=== PATIENT | female | born 1955 | race Caucasian/White ===

== ENCOUNTER 2023-08-26 13:22 | Outpatient (AMB) | payer MEDICARE, BC, SELFPAY ==
--- NOTE | 2023-08-26 13:33 | A.OFFVIS_ITS ---
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 Martinez/ Intake Note: New patient Dr Martinez dx htn is elevated and chest pain at times Files Supervisor Required: No Ordering Machine Operator: Ordering Machine Operator Present Accompanied by: Spouse Allergies sulfamethoxazole [From Bactrim] Allergy (Severe, Verified 08/26/23 14:44) Anaphylaxis trimethoprim [From Bactrim] Allergy (Severe, Verified 08/26/23 14:44) Anaphylaxis vancomycin Allergy (Severe, Verified 08/26/23 14:44) Hives amoxicillin [From Augmentin] Allergy (Mild, Verified 08/26/23 14:44) Gastrointestinal Upset Androgenic Anabolic Steroid Allergy (Mild, Verified 08/26/23 14:44) htn clavulanic acid [From Augmentin] Allergy (Mild, Verified 08/26/23 14:44) Gastrointestinal Upset clindamycin Allergy (Mild, Verified 08/26/23 14:44) Diarrhea glatiramer (copolymer 1) [From Copaxone] Allergy (Mild, Verified 08/26/23 14:44) Hives levofloxacin [From Levaquin] Allergy (Mild, Verified 08/26/23 14:44) tendon problems oxycodone Adverse Reaction (Mild, Verified 08/26/23 14:44) Itching HPI Comments Details: Jodi comes for a 2nd opinion for her management of hypertension and cardiovascular disease. She in the past has had no significant cardiac issues. She recently in April underwent a cardiac catheterization which as per her showed normal coronary arteries. This was done because of recurrent anginal sounding chest discomfort and vascular risk factors. She also had implantable recorder implanted in April of 2020 for symptoms of neurologic dysfunction and with her family history of atrial fibrillation and concerned about it. This was left in for 3 years and was recently explanted and has shown no evidence of atrial fibrillation as per her although she has not very confident about this. She is longstanding history of multiple sclerosis which has been progressive multiple sclerosis, rheumatoid arthritis. She has had progressive neurologic dysfunction related to it. Over the last many years she is developed blood pressure issues. This was 1st diagnose in 2020 when she had presented to the hospital with transient neurologic deficit and as per her the imaging showed no evidence of acute stroke. Subsequently at that time she was noted to have markedly elevated blood pressure. And was started on lisinopril therapy. However after that she continued to have elevated blood pressure and she was eventually switch to amlodipine therapy. This has led to significant better control of blood pressure however over the last many months she was admitted again with neurologic symptoms and noted to have elevated blood pressure. She also had chest pain syndrome. At that time she was started on isosorbide therapy and currently on the regimen that she is on to maintain a blood pressure. Despite this she says a blood pressure is elevated. She says she measure blood pressure only at nighttime before sleep. With the blood pressure at that time been recorded to 150-160. There has been reported autonomic dysfunction as per her neurologist in [place] related to her multiple sclerosis.She has been on Ocrevus therapy for her multiple sclerosis but recently this has been put on hold as per her due to her diagnose of breast cancer due to immunomodulation caused by this therapy. She is worried about her multiple sclerosis and limited prognosis associated with it especially affecting her diaphragmatic muscle and reducing her breathing capacity. 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 As per the she does have stress associated with this but she declines this. She has noted occasional palpitations in the past has been diagnose with SVT. She does have EKG sensor however she says very difficult for her to get her EKG as the symptoms of very transient. She continues to worry about development of atrial fibrillation related stroke. Our there has been no diagnosis of atrial fibrillation the past. 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 Will obtain the same. [facility] Medical History (Updated 08/26/23 @ 16:05 by Kiet Zamudio MD) Progressive multiple sclerosis Family History Father HTN (hypertension) Stroke Mother HTN (hypertension) Afib Social History Patient Tobacco Use Status: Current everyday Tobacco user Cigarettes Per Day: 6 Review of Systems Const Denies chills, Denies daytime sleepiness, Denies fatigue, Denies fever(s), Den ies frequent falls, Denies poor appetite, Denies snoring, Denies stops breathing during sleep, Denies weakness, Denies weight gain and Denies weight loss Eyes Denies loss of vision ENT Denies dizziness and Denies hearing loss Card Denies chest pain, Denies claudication, Denies leg edema, Denies lightheadedness, Denies palpitations, Denies dyspnea, Denies dyspnea on exertion and Denies orthopnea Resp Denies cough, Denies excessive phlegm production, Denies dyspnea, Denies dyspnea on exertion, Denies snoring and Denies wheezing GI Denies abdominal pain, Denies hematochezia, Denies change in bowel habits, Denies nausea and Denies vomiting Denies urinary frequency and Denies dysuria Musc Denies arthralgias, Denies muscle weakness, Denies numbness and Denies other (frequent falls) Skin/Breast Denies nail changes and Denies rash Neuro Denies Abnormal speech present, Denies dizziness, Denies frequent falls, Denies loss of vision, Denies memory loss, Denies numbness and Denies weakness Psych Denies depression and Denies memory loss Endo Denies fatigue and Denies palpitations Ty/Lymph Reports easy bruising and Reports other (anemia) Aller/Immun Denies wheezing Physical Exam Vital Signs: Last Vital Signs Pulse 62 08/26/23 13:35 BP 140/80 H 08/26/23 13:35 BMI result Body Mass Index 25.0 Const General: cooperative, comfortable, no acute distress, alert, awake and anxious Nutritional Appearance: average body habitus and well nourished Orientation/consciousness: patient oriented x3 Limitations: wheelchair HEENT Head: Yes normocephalic and Yes atraumatic Neck Neck: Yes trachea midline, Yes supple and Yes no JVD Resp Effort & Inspection: normal respiratory effort Auscultation: clear to auscultation bilaterally Cardio Jugular venous distension: no JVD Palpation: normal PMI Rate: regular rate Rhythm: regular rhythm Heart sounds: S1 normal heart sound present, S2 normal heart sound present, no click, no gallops, no murmurs and no rubs GI Auscultation: normal bowel sounds Skin General skin exam: no rashes or lesions noted Neuro General: patient oriented x3 and no focal motor deficits Speech: No Abnormal speech present Extrem General: Yes no clubbing, cyanosis or edema Psych Affect: Anxious affect present Office Procedures EKG Details: EKG shows normal sinus rhythm with normal EKG [id number], Complete Assessment & Plan Assessment & Plan (1) Palpitations: Code(s): R00.2 - Palpitations Category: Medical Plan: Patient with transient symptoms of palpitations. This could either represent extra systoles of short burst of SVT. She has never been diagnosed with atrial fibrillation the past. She remains very worried about the same. I discussed with her that she can get daily EKGs or twice a day EKGs with her EKG sensor blue tooth device. This way we can monitor on a daily basis if there any significant arrhythmias. If she is particularly prolonged episode of palpitations also we can obtain EKGs during that time. Although she has family history of atrial fibrillation despite the implantable loop recorder there has never been a diagnose of atrial fibrillation so this is less likely. This was discussed with her. We discussed about stress mitigation strategies. Avoidance of stimulants was discussed. At this point time I do not think she requires any other form of external monitoring except for self monitoring. (2) Labile blood pressure: Code(s): R09.89 - Other specified symptoms and signs involving the circulatory and respiratory systems Category: Medical Plan: Labile blood pressure most likely related to dysautonomia. She is very worried about her blood pressure issues. She has had symptomatic hospitalization related to transient neurologic symptoms. She has never had an obvious stroke based on imaging. Will obtain all old records and cardiology workup. We had a very long discussion about management of this. She is currently on a complicated regimen of antihypertensives. I have advised her to monitor blood pressure at different times of the day and maintain a record over the next 4-6 weeks. Further management based on the finding of the blood pressure adjustment of medications based off that. I discussed with her that isosorbide is not a great antihypertensive. However this is probably being used for chest pain syndrome although inappropriate given that she has no prior history suggestive of obstructive coronary artery disease. Isosorbide can potentially be used for coronary vaso spasm although this is difficult clinical diagnosis. Will obtain old records to review the same. Continue metoprolol which is helping with her SVT syndrome. Continue amlodipine as well as clonidine therapy although still not a great drug for blood pressure control. Will further manage her blood pressure based on the data. Stress mitigation strategies needs to be pursued. Adequate hydration needs to be pursued. Difficult management of labile blood pressure especially related to autonomic dysfunction was discussed with her. Permissive hypertension up to systolic blood pressure 140 was discussed. Greater than 1 hours spent in overall listening to her concerns and discussing with her about various options. Will follow-up for nurse visit in 6 weeks time. Thank you for allowing me to partake in the care Coding Level of Care Code New Pt Level 5 (85944) Diagnoses Palpitations R00.2 Labile blood pressure R09.89 CPT Codes EKG - CPT: [id number], Complete ([id number])
[2023-08-26 13:35] VITALS: BP 140/80; PULSE 62; BMI 25.0
== END 2023-08-26 15:22 | disposition home or self-care (01) ==
PROVIDERS: PCP Internal Medicine; Visit Provider Internal Medicine Cardiovascular Disease
DX: R00.2 Palpitations (principal); R03.0 Elevated blood-pressure reading, without diagnosis of hypertension
CPT/HCPCS: 93010; 99205

== ENCOUNTER → 2023-08-26 13:22 | Outpatient (BNVA) | payer MEDICARE, BC, SELFPAY | PROVIDERS: PCP Internal Medicine; Visit Provider Internal Medicine Cardiovascular Disease | DX: I10 Essential (primary) hypertension (principal); R00.2 Palpitations; R09.89 Other specified symptoms and signs involving the circulatory and respiratory systems | CPT/HCPCS: 93005; 99202 ==

== ENCOUNTER → 2023-10-06 08:44 | Outpatient (BNVA) | payer MEDICARE, BC, SELFPAY | PROVIDERS: PCP Internal Medicine; Visit Provider Internal Medicine Cardiovascular Disease ==

== ENCOUNTER 2025-03-18 18:29 | Emergency (ER) | payer MEDICARE, BC, SELFPAY ==
--- OUTSIDE RECORDS SUMMARY | 2025-03-17 10:30 | XMS_ITS | Encounter Summary ---
Author Organization [facility] Address [address] [place] [address] Phone Care Team Providers Care Customer Service Specialist Name Role Phone Marion Mattson MD Unavailable [phone] Kelvin Acosta MD Unavailable [phone] Nato Martinez MD Primary Care Provider [phone] Yessica Hernandes MD Unavailable Karen Yen MD Unavailable [phone] Nato Martinez MD Unavailable [phone] Reason for Referral * MRI/CAT Scan - Authorized Specialty Diagnoses / Procedures Referred By Contyoselin t Referred To Contact Radiology Diagnoses Left arm pain Procedures CT Chest Nato Martinez MD [address] [place] [address] Phone: tel: fax: [email or web address] Referral ID Status Reason Start Date Expiration Date V isits Requested Visits Authorized [id number] Authorized 03/17/2025 03/17/2026 1 1 Reason for Visit * Reason Comments Hypertension Follow up on blood p ressure Medication Review Follow up on medicat ions Encounter Details Date Type Department Care Team (Late Contact Info) Description 03/17/2025 10:30 AM EST [facility] [address] [place] [address] [place] [address] Nato Martinez MD [address] [place], [place] [id number] [email or web address] Left arm pain (Primary Dx); Malignant neoplasm of female breast, unspecified estrogen receptor status, unspecified laterality, unspecified site of breast; Resistant hypertension; Neuromuscular respiratory weakness; Multiple sclerosis; TIA (transient ischemic attack) Social History Tobacco Use Types Packs/Day Years Used Date Smoking Tobacco: Light Smoker Cigarettes 0.3 43 Smokeless Tobacco: Never Comments:Started at age 18. 5 a day Alcohol Use Standard Drinks/Week Comments Yes 0 (1 standard drink = 0.6 oz pur e alcohol) 4 Beers weekly Home Health Assessment: Transportation Answer Date Recorded Lack of Transportation (Medical) No 09/12/2022 Lack of Transportation (Non-Medical) No 09/12/2022 Patient Unable or Declines to Respond No 09/12/2022 Education Answer Date Recorded Are you interested in more education? Not on ean e 08/22/2022 Are you concerned about learning? Not on file 08/22/2022 No 08/22/2022 No 08/22/2022 Digital Access Answer Date Recorded No 09/21/2022 No 09/21/2022 Reliable internet access at home? Not on file 09/21/2022 Device with a working camera? Not on file Intimate Partner Violence Answer Date R ecorded Are you denied basic needs s uch as food, clothing, or medical care? No 08/08/2024 In the past 12 months have y ou been in a relationship with a person who hurts, threatens, or tries to control you? No 08/08/2024 Are you denied basic needs s uch as food, clothing, or medical care? No 08/08/2024 In the past 12 months have y ou been in a relationship with a person who hurts, threatens, or tries to control you? 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 on file Not on file Not on file documented as of this encounter Last Filed Vital Signs Vital Sign Reading Time Taken Comments Blood Pressure 122/70 03/17/2025 10:34 AM EST Pulse 59 03/17/2025 10:34 AM EST Temperature 36.3 C (97.3 F) 03/17/2025 10:34 AM EST Respiratory Rate - - Oxygen Saturation 98% 03/17/2025 10:34 AM EST Inhaled Oxygen Concentration - - Weight - - Height 167.6 cm (5' 5.98 ) 03/17/2025 10:[address] Body Mass Index - - documented in this encounter Progress Notes * Nato Martinez MD - 03/17/2025 10:30 AM EST Chief Complaint: Hypertension (Follow up on blood pressure ) and Medication Review (Follow up on medications ) Subjective: Social History Social History 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 She is disabled and wheelchair-bound. She has two adult children living in [facility]. 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 She smokes 5 cigarettes daily. HCP: Edward Zarate, She is a DO NOT RESUSCITATE and DO NOT INTUBATE per discussion today Here for hypertension follow-up. She reported difficulty with lab issues, tests ordered by Dr. Esposito. We recently updated the lab system and that seems to explain the problem. Last visit with me in July, she reported some atypical chest discomfort with nausea at night. She has worsening MS, and had a normal cardiac cath last year. She was recommended to have a lab polysomnogram. She has previously been tested at [facility] and has been tried on BiPAP in the past with difficulty from stomach distention. She has had scheduled follow-up with Dr. Silva in pulmonology and Dr. Andres in sleep medicine. In July I ordered an echocardiogram which showed normal EF, trace MR, no AAS or AR, no MS or MR, no pulmonary hypertension Routine labs last month, LDL 66, HDL 68, hematocrit 49.4 somewhat elevated compared to previous, glucose 115, A1c 5.8 Jodi Zarate, is a 69 y.o. female reports concerns: - wonders re meds and 'heart issues': still having 'angina', LUE pain. Has SOB always, but no chestpressure or pain. Then relates an episode of pinching in L upper chest a month ago for a day. No nocturnal nausea, 'i don't remember that'. Today we discussed that constant LUE pain, with no progression to ACS would be unusual. She is on solid antianginal meds [imdur, asa, toprol, norvasc, lipitor]. Also mentions she gets occas LLE numbness. I think she has a different cause for her LUE sx, likely related to MS. All of her sx worsened whenocrevus was dc'd almost 2 yrs. Today will order chest CT to r/o thoracic outlet. Re HTN, does home BPs. When BP is 160/90 she feels it, 2-3x/month. Also get some low BPs, rarely. I rec'd daily BP mornings, and some evening checks. [place] [facility] [place]. Never made appt with [facility] cardiology We reviewed her entire medical profile. Re nuvigil, she worries re stimulant effect on her ?angina. Re ASA, rec'd continueing dt hx TIA. Cont lipitor Re clonidine, she does have fatigue, but did not notice improved energy when she missed doses. History of Present Illness VITALS: BP 122/70 (BP Location: Right arm, Patient Position: Sitting, Cuff Size: Medium) Pulse (!) 59 Temp 36.3 ??C (97.3 ??F) (Temporal) Ht 167.6 cm (5' 5.98 ) SpO2 98% BMI 21.80 kg/m?? Physical Exam Assessment/Plan: 1. Left arm pain (Primary) Overview: Needs chest CT, start eval for thoracic outlet Orders: - CT Chest 2. Malignant neoplasm of female breast, unspecified estrogen receptor status, unspecified laterality, unspecified site of breast Overview: Dr Alcaraz at [facility] manages. Currently monitor, slow growing, no surgery planned 3. Resistant hypertension Overview: She has had labile blood pressures, has had her medications adjusted multiple times. As of June 2020, overall excursions are improving 4. Neuromuscular respiratory weakness Overview: Decreased MIPs and MEPS in the setting of MS Cough intact Voice weak Oropharyngeal dysphagia No aspiration Last Assessment & Plan: Decreased MIPs and MEPS in the setting of MS; Cough intact; Voice weak; Oropharyngeal dysphagia; Noaspiration. Ordered PFTS sitting and supine with MIPS/MEPS at [facility]. 5. Multiple sclerosis Overview: moderate progressive, followed at [facility], Dr. Esposito. Wheelchair bound since 2014 Maintained on Ocrevus, Q6 months. To restart September: Having more resp issues, may need to adjust her resp support. June 2020: Has more autonomic issues, blood pressure medication regimen is being adjusted by cardiology. She has significant sleep issues and daytime sleepiness. July 2020: Refer to PT. She is also restarting meditation and councelling. 6. TIA (transient ischemic attack) Overview: No recurrent sx Assessment & Plan I have maintained a long-term, longitudinal relationship with this patient, overseeing care of chronic conditions, including MS, HTN, hypoventilation, arm pain. This care relationship has significantly influenced my decision-making and treatment plans during today's encounter. Please consider using the newly developed race-neutral PREVENT score to determine CVD risk: https:// professional.heart.org/en/jhzxdcgtxk-kso-fixgfnfrbe/prevent-calculator The ASCVD Risk score (Justice LLANES, et al., 2019) failed to calculate for the following reasons: Risk score cannot be calculated because patient has a medical history suggesting prior/existing ASCVD No results found for any visits on 03/17/25. There are no Patient Instructions on file for this visit. No future appointments. No follow-ups on file. Nato Martinez MD 03/17/25. 11:10 AM Orders Placed This Encounter Procedures CT Chest Standing Status: Future Expected Date: 03/17/2025 Expiration Date: 06/17/2025 Oral Contrast Request:: Oral Contrast authorized if indicated per Radiology Protocol Does the patient have a known prior CT contrast reaction?: No Intravenous Contrast Request:: IV Contrast Authorized if indicated per Radiology Protocol Is a particular imaging focus suggested (radiology may call to confirm)?: Per Radiologist discretion/standard based on indications Patient expresses understanding and agrees with plan. All questions were answered satisfactorily. Patient agrees to call with questions or concerns should the need arise This dictation was prepared using Bo[employer] cashiers supervisor software. documented in this encounter Plan of Treatment Scheduled Orders Name Type Priority Associated Diagnoses Orde r Schedule CT Chest Imaging Routine Left arm pain Expected: 03/17/2025, Expires: 06/17/2025 documented as of this encounter Visit Diagnoses Diagnosis Left arm pain- Primary Pain in soft tissues of limb Malignant neoplasm of female breast, unspecified estrogen receptor status, unspecified laterality, unspecified site of breast Resistant hypertension Neuromuscular respiratory weakness Multiple sclerosis TIA (transient ischemic attack) Unspecified transient cerebral ischemia documented in this encounter Additional Health Concerns Assessment Noted Time PHQ-2 Depression Total Score: 1 03/17/20 25 10:40 AM EST documented as of this encounter Care Teams Customer Service Specialist Relationship Specialty Start Date End Date Nato Martinez MD [address] [place] [address], [address] [place] [address] [email or web address] PCP - General Internal Medicine 05/13/17 Marion Mattson MD [address] [place] [address], [address] [place] [address] [email or web address] Historical LMR Provider 02/14/17 Kelvin Acosta MD [address] [place] [address] [email or web address] Historical LMR Provider 02/14/17 Yessica Hernandes MD [address] [place] [address] [email or web address] Obstetrics and Gynecology 09/02/17 Karen Yen MD [address] [place] [address] [email or web address] Medical Oncology 09/02/17 Nato Martinez MD [address] [place] [address], [address] [place] [address] [email or web address] Insurance Assigned Provider 08/01/23 documented as of this encounter Additional Source Comments The information contained in this document represents components of the legal health record. It is not the complete legal health record.[facility]
--- NOTE | ~2025-03-18 | CT_ITS ---
CLINICAL HISTORY: left facial numbness CT head without contrast Comparison: None provided Findings: No intra-axial mass, midline shift, hydrocephalus, or acute hemorrhage. Age appropriate cerebral volume loss. Patchy low-density within the periventricular and subcortical white matter. There is no sinus or mastoid fluid. The orbits are unremarkable. There is no acute fracture. IMPRESSION: 1. No acute intracranial findings. This document has been electronically signed by: Brigid Quick MD on 03/18/2025 20:53:45
[2025-03-18 18:34] VITALS: BP 141/70; PULSE 60; RESP 18; TEMP 37.1; O2SAT 99; BMI 22.3
--- NOTE | 2025-03-18 18:40 | ECG_ITS ---
Test Reason : WEAKNESS Blood Pressure : */* mmHG Vent. Rate : 55 BPM Atrial Rate : 55 BPM P-R Int : 162 ms QRS Dur : 72 ms QT Int : 418 ms P-R-T Axes : 65 15 -1 degrees QTcB Int : 399 ms Sinus bradycardia Otherwise normal ECG No previous ECGs available Referred By: Ervin Montenegro Electronically Signed By: MICHELLE PATINO
--- NOTE | 2025-03-18 18:41 | ED.GENADULT ---
HPI - General Adult General Chief complaint: General Medical Stated complaint: possible stroke Time Seen by Provider: 03/18/25 20:59 History of Present Illness ED Provider: Dr. Annabel Mo HPI narrative: 69-year-old female with a history of hypertension, hyperlipidemia, and long-standing multiple sclerosis (40 yrs) who presented to the ED after accidental morning ingestion of her usual nighttime medications (amlodipine, clonidine, metoprolol, isosorbide, baclofen ? larger dose, and primidone). ? Timeline ? Around 11:00 AM, while working on the computer, she developed marked fatigue and almost fell asleep. Dizziness came on ?stronger and sooner? than usual fatigue spells. About 1 hour later she noted numbness of the left side of her mouth and left hand, followed by generalized weakness when attempting to transfer/walk. ? Home BP readings were low: lowest documented 99/62 mm Hg with HR 47 bpm. BP later improved. ? She phoned her PCP answering service (~12 PM); prior history includes two TIAs, so PCP recommended ED evaluation. ? Left arm/shoulder pain radiates under axilla and down arm; similar discomfort first occurred after her 2020 TIA. ? After initial episode, patient rested at home; upon waking, symptoms (fatigue, numbness, cognition) were worse. On arrival to ED, described patient as ?out of it,? unable to transfer from wheelchair, and could barely use her left hand. Symptoms subsequently improved during ED stay, including improvement in numbness in feet. Cognition currently intact per provider. ? No Tylenol or other analgesics taken. ? Denies recent fever, cough, colds, nausea, bowel changes, urinary complaints or vomiting. Related Data Home Medications ?Medication ?Instructions ?Recorded ?Confirmed amlodipine 2.5 mg tablet 2.5 mg PO BID 08/26/23 armodafinil 150 mg tablet 150 mg PO QAM PRN 08/26/23 aspirin 81 mg tablet,delayed 81 mg PO DAILY 08/26/23 release (Adult Aspirin Regimen) atorvastatin 80 mg tablet 40 mg PO DAILY 08/26/23 baclofen 20 mg tablet 20 mg PO TID 08/26/23 clonidine HCl 0.2 mg tablet 0.2 mg PO QPM 08/26/23 esomeprazole magnesium 20 mg 20 mg PO DAILY 08/26/23 capsule,delayed release hyoscyamine sulfate 0.125 mg tablet 0.125 mg PO DAILY 08/26/23 immun glob G 10 gram/50 mL(20 subcut 08/26/23 %)-pro-IgA 0-50 mcg/mL subcutaneous soln (Hizentra) isosorbide mononitrate 30 mg 30 mg PO DAILY 08/26/23 tablet,extended release 24 hr metoprolol succinate 50 mg 50 mg PO DAILY 08/26/23 tablet,extended release 24 hr polyethylene glycol 3350 17 17 g PO DAILY 08/26/23 gram/dose oral powder (Miralax) primidone 50 mg tablet 50 mg PO DAILY 08/26/23 vitamin B complex 1 tab PO DAILY 08/26/23 Allergies Allergy/AdvReac Type Severity Reaction Status Date / Time sulfamethoxazole (From Allergy Severe Anaphylaxis Verified 03/18/25 18:38 Bactrim) trimethoprim (From Bactrim) Allergy Severe Anaphylaxis Verified 03/18/25 18:38 vancomycin Allergy Severe Hives Verified 03/18/25 18:38 amoxicillin (From Augmentin) Allergy Mild Gastrointestinal Verified 03/18/25 18:38 Upset Androgenic Anabolic Steroid Allergy Mild htn Verified 03/18/25 18:38 clavulanic acid (From Allergy Mild Gastrointestinal Verified 03/18/25 18:38 Augmentin) Upset clindamycin Allergy Mild Diarrhea Verified 03/18/25 18:38 glatiramer (copolymer 1) Allergy Mild Hives Verified 03/18/25 18:38 (From Copaxone) levofloxacin (From Levaquin) Allergy Mild tendon Verified 03/18/25 18:38 problems oxycodone AdvReac Mild Itching Verified 03/18/25 18:38 Review of Systems Review of Systems: as per HPI, full review of systems performed and negative but for the above mentioned pertinent positives and negatives. [facility] Past Medical History Medical History Progressive multiple sclerosis Family History Family History Father HTN (hypertension) Stroke Mother HTN (hypertension) Afib Social History Social History Alcohol intake: current Alcohol intake frequency: 0-2 drinks per day Alcohol type: beer Patient Tobacco Use Status: Current everyday Tobacco user Cigarettes Per Day: 6 Smoked in Last 30 Days: Yes Use of substances other than those prescribed or required for medical reasons: No Advance Directives: Yes Advance Directives Information Provided: No Advance Directives on File: No Do you have a plan to hurt others: No Plan Physical Exam ED Exam Exam: GENERAL: Chronically ill-appearing, conversant, no acute distress. SKIN: Normal skin color for ethnicity, warm, dry, no rashes noted. HEENT: Normocephalic, atraumatic, no stridor, posterior oropharynx nonerythematous, EOMI. NECK: Soft, supple, full ROM, midline structures nontender, no step-offs, no deformities, no lymphadenopathy. CHEST: Heart regular rate and rhythm, no murmurs, symmetric chest rise and fall. PULMONARY: Clear to auscultation bilaterally, no labored breathing, no wheezes/rhales/ rhonchi. ABDOMINAL: Soft, nondistended, nontender, positive bowel sounds in all quadrants. : Deferred. MUSCULOSKELETAL: Normal tone, full range of motion, no deformities, no peripheral edema. NEURO: Alert and oriented to person, CN II through XII intact, LUE/LLE strength 4/5 compared to R side, baseline per patient, sensation equal in all limbs/face. PSYCHIATRIC: Flat affect, fluid speech, appropriate demeanor. Vital Signs: Vital Signs - 24 hr 03/18/25 18:34 Temperature 98.8 F Pulse Rate 60 Respiratory Rate 18 Blood Pressure 141/70 H Pulse Oximetry 99 Oxygen Delivery Method Room Air BMI result Body Mass Index 22.3 Course Course Course Narrative: RME, this is a rapid medical exam performed by Woodrow Montenegro please refer to primary provider for complete H&P- 69 year old female presents for evaluation of multiple complaints including left chest pain into her left arm. Left facial numbness. She reports dizziness and fogginess starting at 11:00 am about 7.5 hours prior to my evaluation. She reports some word finding difficulties. She has good strength to all extemities, no facial droop or slurred speech. She is wheelchari bound from a history of MS Medical Decision Making Medical Decision Making MDM Narrative: 69-year-old woman with complex medical history presenting after inadvertent morning ingestion of nightly antihypertensive regimen, associated hypotension, transient neurologic symptoms, and left upper-extremity pain. ED evaluation (labs, CT head, EKG) reassuring. Differential includes drug-induced hypotension, TIA, cervical radiculopathy, and possible MS flare. Risks, benefits, and options for hospital admission versus outpatient follow-up discussed in detail; patient elects to discharge home with close monitoring and clear return precautions. #1 Accidental double dosing of the antihypertensive meds with symptomatic hypotension Hold all blood pressure medications tonight Resume non blood pressure medications Continue to monitor blood pressure at home return to the emergency department with any worsening hypotension or symptoms #2 Transient neurologic symptoms - TIA versus MS flare versus cervical radiculopathy Left facial/hand numbness and weakness, prior TIAs; CT negative Cannot r/o TIA/MS flare without MRI, patient has scheduled MRI Thursday (03/20) ordered by her neurologist at [facility] in [place] Discussed option of inpatient admission for expedited MRI; using shared decision making, patient declines and opts for outpatient management. Assessment: Long-standing; baseline left-sided weakness; possible contributing factor to current presentation. Plan: Follow closely with MS neurologist; MRI results to guide further management. 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 Follow-up: 1) Neurology ? MRI and visit as scheduled Thursday. 2) PCP ? update after imaging. Differential Diagnosis Differential Diagnoses: The differential diagnosis associated with the presentation includes (as above) Admission/Observation Consideration of admission/observation: Escalation of care including admission/observation considered Lab Data MDM Lab Attestation statement: I reviewed the patient's lab results. Urinalysis does have 4+ bacteria and nitrite positive however, leukocyte esterase is negative, low WBCs, we will hold on treatment until culture comes back, patient has urologist that she would prefer to see as an outpatient 03/18/25 18:53 03/18/25 18:53 Labs: Lab Results 03/18/25 Range/Units 18:53 WBC 7.0 (4.8-10.8) X10*3/uL RBC 4.33 (4.20-5.50) X10*6/uL Hgb 14.0 (12.0-16.0) g/dl Hct 41.1 (37.0-47.0) % MCV 94.9 (80.0-98.0) fL MCH 32.3 (27.0-33.0) pg MCHC 34.1 (31.0-35.0) g/dl RDW 12.0 (11.0-16.0) % Plt Count 169 (160-400) X10*3/uL MPV 11.3 (9.4-12.3) fL Immature Gran % (Auto) 0.7 H (0.0-0.4) % Neut % (Auto) 55.6 (45-73) % Lymph % (Auto) 30.9 (20-40) % Osborne % (Auto) 9.3 (2-11) % Eos % (Auto) 2.6 (0-4) % Baso % (Auto) 0.9 (0-2) % Lymph # (Auto) 2.2 (1.2-4.9) X10*3/uL Osborne # (Auto) 0.7 (0.1-1.2) X10*3/uL Eos # (Auto) 0.2 (0.0-0.4) X10*3/uL Baso # (Auto) 0.1 (0.0-0.2) X10*3/uL Abs Immat Gran (auto) 0.05 H (0.00-0.03) X10*3/uL Absolute Neuts (auto) 3.9 (2.0-8.3) x10*3/uL Absolute Nucleated RBC 0.000 (0.0-0.012) X10*3/uL Nucleated RBC % (auto) 0.0 (0.0-0.2) /100WBC Sodium 144 (135-145) mmol/L Potassium 3.8 (3.3-5.1) mmol/L Chloride 109 H (96-108) mmol/L Carbon Dioxide 28 (22-29) mmol/L Anion Gap 11 L (12-20) BUN 16 (9-16) mg/dL Creatinine 0.66 (0.5-1.4) mg/dL Estim Creat Clear Calc 77.4 Estimated GFR > 60 Random Glucose 100 (60-115) mg/dL Calcium 9.0 (8.4-10.2) mg/dL Magnesium 2.1 (1.6-2.6) mg/dL Total Bilirubin 0.3 (0.0-1.0) mg/dL AST 27 (5-31) U/L ALT 22 (0-31) U/L Alkaline Phosphatase 100 (39-117) U/L Troponin I High Sens < 2.7 (<3.5-17.0) ng/L Total Protein 6.6 (6.5-8.0) g/dL Albumin 4.2 (3.5-5.0) g/dL Lipase 41 (8-78) U/L Influenza Type A (PCR) NEGATIVE (Negative) Influenza Type B (PCR) NEGATIVE (Negative) RSV RNA Qual (PCR) NEGATIVE (Negative) SARS-CoV-2 RNA (RT-PCR) NEGATIVE (Negative) Independent Interpretation I performed an independent interpretation of an: EKG Interpretation: My independent interpretation of the ECG reveals normal sinus bradycardia with rate of 55, normal axis, normal intervals, no ST elevations or depressions to suggest ischemic changes, no previous for comparison Radiology Impression Discussion of test interpretation with radiology: I have reviewed the radiologist's reading. Independent Historian Clinical information obtained from an independent historian. History obtained from or confirmed by: Spouse External Record Review External record reviewed: Office record Chronic Conditions Patient?s care impacted by: Other (MS) Discharge Plan Discharge Clinical Impression: Paresthesia and pain of left extremity, Medication dosage interval too long Patient Disposition: Home, Self-Care Instructions: Paresthesia (ED) Additional Instructions: Return to the emergency room with any new or worsening symptoms including: Facial droop, word-finding difficulty, weakness that is worse than your baseline, fevers greater than 100?, any new symptom that concerns you. Call 911 with any medical emergency. Remember that stroke is time sensitive and to call for help as soon as you recognize symptoms of a stroke. Prescriptions: No Action amlodipine 2.5 mg tablet 2.5 mg PO BID clonidine HCl 0.2 mg tablet 0.2 mg PO QPM metoprolol succinate 50 mg tablet extended release 24 hr 50 mg PO DAILY isosorbide mononitrate 30 mg tablet extended release 24 hr 30 mg PO DAILY atorvastatin 80 mg tablet 40 mg PO DAILY esomeprazole magnesium 20 mg capsule,delayed release(DR/EC) 20 mg PO DAILY hyoscyamine sulfate 0.125 mg tablet 0.125 mg PO DAILY baclofen 20 mg tablet 20 mg PO TID aspirin [Adult Aspirin Regimen] 81 mg tablet,delayed release (DR/EC) 81 mg PO DAILY primidone 50 mg tablet 50 mg PO DAILY Hizentra 10 gram/50 mL (20 %) solution subcut vitamin B complex Tablet 1 tab PO DAILY polyethylene glycol 3350 [Miralax] 17 gram/dose powder 17 g PO DAILY armodafinil 150 mg tablet 150 mg PO QAM PRN Print Language: Mohawk
[2025-03-18 19:00] LABS: MANUAL DIFF FLAG NO
[2025-03-18 19:02] LABS: Hematocrit 41.1 % (37.0-47.0); Hemoglobin 14.0 g/dl (12.0-16.0); Imm Gran Abs Auto 0.05 X10*3/uL (0.00-0.03); Imm Gran Pct Auto 0.7 % (0.0-0.4); Lymphocytes Absolute Auto 2.2 X10*3/uL (1.2-4.9); Mean Corpuscular HGB Conc 34.1 g/dl (31.0-35.0); Mean Corpuscular Hemoglobin 32.3 pg (27.0-33.0); Mean Corpuscular Volume 94.9 fL (80.0-98.0); NRBC Abs Auto 0.000 X10*3/uL (0.0-0.012); NRBC Pct Auto 0.0 /100WBC (0.0-0.2); Platelet Count 169 X10*3/uL (160-400); Red Blood Count 4.33 X10*6/uL (4.20-5.50); White Blood Count 7.0 X10*3/uL (4.8-10.8)
[2025-03-18 19:17] LABS: Alanine Aminotransferase 22 U/L (0-31); Albumin Level 4.2 g/dL (3.5-5.0); Alkaline Phosphatase 100 U/L (39-117); Anion Gap 11 (12-20); Aspartate Amino Transferase 27 U/L (5-31); Blood Urea Nitrogen 16 mg/dL (9-16); Calcium 9.0 mg/dL (8.4-10.2); Carbon Dioxide 28 mmol/L (22-29); Chloride 109 mmol/L (96-108); Creatinine Clr Calc Pharmacy 77.4; Estimated Glomerular Filt Rate > 60; Lipase 41 U/L (8-78); Magnesium 2.1 mg/dL (1.6-2.6); Potassium 3.8 mmol/L (3.3-5.1); Sodium 144 mmol/L (135-145); Total Protein 6.6 g/dL (6.5-8.0)
[2025-03-18 19:25] LABS: Troponin-I High Sensitivity < 2.7 ng/L (<3.5-17.0)
--- OUTSIDE RECORDS SUMMARY | 2025-03-18 19:30 | XMS_ITS | Encounter Summary ---
Author Organization [facility] Address [address] [place] [address] [place] [address] Phone Care Team Providers Care Wash Operator Name Role Phone Marion Mattson MD Unavailable Kelvin Acosta MD Unavailable [phone] Qi Velez MD Unavailable [phone] Papa Gillespie MD Unavailable Nato Martinez MD Primary Care Provider [phone] Yessica Hernandes MD Unavailable Karen Yen MD Unavailable Nato Martinez MD Unavailable [phone] Encounter Details Date Type Department Care Team (Late st Contact Info) Description 09/01/2019 Transcribe Orders [address] [place] [address] Valentina De Los Santos MD [address] [facility] [place] [address] CVID (common variable immunodeficiency) (Primary Dx) Social History Tobacco Use Types Packs/Day Years Used Date Smoking Tobacco: Every Day Cigarettes 0.3 43 Smokeless Tobacco: Never Comments:Started at age 18 Alcohol Use Standard Drinks/Week Comments Yes 7 (1 standard drink = 0.6 oz pur e alcohol) Beer Nightly Comments No Sex and Gender Information Value Date Recorded Sex Assigned at Female 05/02/2020 8:29 PM EST Legal Sex Female 6:15 PM EST Gender Identity Female 05/02/2020 8:29 PM EST Sexual Orientation Straight 07/30/2020 10 :31 AM EDT 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 Co de Phone Number [address] [address] * (ABNORMAL) Immunoglobulin M (09/01/2019 9:45 AM EDT) IMMUNOGLOBULIN M 13(L) 40 - 230 mg/dL [facility] Blood 09/01/2019 9:45 AM EDT 09/01/2019 1:43 PM EDT us Valentina De Los Santos MD LAB BLOOD BKR ORDERABLES F inal Result Performing Organization Address [facility]/ZIP Co de Phone Number [address] [address] * Immunoglobulin G (09/01/2019 9:45 AM EDT) IMMUNOGLOBULIN G 1,079 700 - 1,600 mg/dL [facility] Blood 09/01/2019 9:45 AM EDT 09/01/2019 1:43 PM EDT us Valentina De Los Santos MD LAB BLOOD BKR ORDERABLES F inal Result [address] [address] * Immunoglobulin A (09/01/2019 9:45 AM EDT) IgA 111 70 - 400 mg/dL [facility] Blood 09/01/2019 9:45 AM EDT 09/01/2019 1:43 PM EDT us Valentina De Los Santos MD LAB BLOOD BKR ORDERABLES F inal Result Performing Organization Address [facility] Co de Phone Number [address] [address] documented in this encounter Visit Diagnoses Diagnosis CVID (common variable immunodeficiency)- Primary Common variable immunodeficiency documented in this encounter Additional Health Concerns Infection Onset Date Last Indicated Resolved Time CoV-Risk 01/18/2021 01/18/2021 01/28/2021 1:24 AM EDT COVID-19 10/07/2024 10/07/2024 10/28/2024 1:21 AM EDT documented as of this encounter Care Teams Wash Operator Relationship Specialty Start Date End Date Nato Martinez MD [address] [place] [address], [address] [place] [address] [email or web address] PCP - General Internal Medicine 05/13/17 Marion Mattson MD [address] [place] [address], [address] [place] [address] [email or web address] Historical LMR Provider 02/14/17 Kelvin Acosta MD [address] [place] [address] [email or web address] Historical LMR Provider 02/14/17 Qi Velez MD [address] [place] [address] Historical LMR Provider 02/14/17 2 Papa Gillespie MD [address] [place] [address], [address] [place] [address] [email or web address] Historical LMR Provider 02/14/17 05/04/21 Yessica Hernandes MD [address] [place] [address] [email or web address] Obstetrics and Gynecology 09/02/17 Karen Yen MD [address] [place] [address] [email or web address] Medical Oncology 09/02/17 Nato Martinez MD [address] [place] [address], [address] [place] [address] [email or web address] Insurance Assigned Provider 08/01/23 documented as of this encounter Additional Source Comments The information contained in this document represents components of the legal health record. It is not the complete legal health record.[facility]
--- OUTSIDE RECORDS SUMMARY | 2025-03-18 19:30 | XMS_ITS | Encounter Summary ---
Author Organization [facility] Address [facility] [address] [place] [address] Phone Care Team Providers Care Finish Production Manager Name Role Phone Marion Mattson MD Unavailable Kelvin Acosta MD Unavailable [phone] Nato Martinez MD Primary Care Provider [phone] Yessica Hernandes MD Unavailable Karen Yen MD Unavailable Nato Martinez MD Unavailable [phone] Encounter Details Date Type Department Care Team (Late st Contact Info) Description 05/02/2022 Procedure Pass [facility] Endoscopy Admitting Dept Virtual Department [address] [place] [address] Social History Tobacco Use Types Packs/Day Years Used Date Smoking Tobacco: Light Smoker Cigarettes 0.3 43 Smokeless Tobacco: Never Comments:Started at age 18. 5 a day Alcohol Use Standard Drinks/Week Comments Yes 0 (1 standard drink = 0.6 oz pur e alcohol) 4 Beers weekly Comments No Sex and Gender Information Value [...] on file documented as of this encounter Visit Diagnoses Not on filedocumented in this encounter Additional Health Concerns Infection Onset Date Last Indicated Resolved Time COVID-19 10/07/2024 10/07/2024 10/28/2024 1:21 AM EDT Assessment Noted Time PHQ-2 Depression Total Score: 0 07/31/19 10:32 AM EDT documented as of this encounter Care Teams Finish Production Manager Relationship Specialty Start Date End Date Nato Martinez MD [address] [place] [address], [address] [place] [address] PCP - General Internal Medicine 05/13/17 Marion Mattson MD [address] [place] [address], [address] [place] [address] [email or web address] Historical LMR Provider 02/14/17 Kelvin Acosta MD [address] [place] [address] [email or web address] Historical LMR Provider 02/14/17 Yessica Hernandes MD [address] [place] [address] [email or web address] Obstetrics and Gynecology 09/02/17 Karen Yen MD [address] [place] [address] Medical Oncology 09/02/17 Nato Martinez MD [address] [place] [address], [address] [place] [address] [email or web address] Insurance Assigned Provider 08/01/23 documented as of this encounter Additional Source Comments The information contained in this document represents components of the legal health record. It is not the complete legal health record.[facility]
--- OUTSIDE RECORDS SUMMARY | 2025-03-18 19:30 | XMS_ITS | Encounter Summary ---
Author Organization [facility] Address [facility] [address] [place] [address] Phone Care Team Providers Care Corporate Analyst Name Role Phone Marion Mattson MD Unavailable Kelvin Acosta MD Unavailable [phone] Nato Martinez MD Primary Care Provider Yessica Hernandes MD Unavailable Karen Yen MD Unavailable Nato Martinez MD Unavailable [phone] Encounter Details Date Type Department Care Team (Late st Contact Info) Description 08/25/2022 Procedure Pass [facility], Ct Scan - [address] [address] Social History Tobacco Use Types Packs/Day Years Used Date Smoking Tobacco: Light Smoker Cigarettes 0.3 43 Smokeless Tobacco: Never Comments:Started at age 18. 5 a day Alcohol Use Standard Drinks/Week Comments Yes 0 (1 standard drink = 0.6 oz pur e alcohol) 4 Beers weekly Education Answer Date Recorded Are you interested in more education? Not on ean e 08/22/2022 Are you concerned about learning? Not on file 08/22/2022 No 08/22/2022 No 08/22/2022 Comments No Sex and Gender Information Value [...] documented as of this encounter Care Teams Corporate Analyst Relationship Specialty Start Date End Date Nato Martinez MD [address] [place] [address], [address] [place] [address] PCP - General Internal Medicine 05/13/17 Marion Mattson MD [address] [place] [place] [address], [address] [place] [address] [email or web address] Historical LMR Provider 02/14/17 Kelvin Acosta MD [address] [place] [address] [email or web address] Historical LMR Provider 02/14/17 Yessica Hernandes MD [address] [place] [address] [email or web address] Obstetrics and Gynecology 09/02/17 Karen Yen MD [address] [place] [address] Medical Oncology 09/02/17 Nato Martinez MD [address] [place] [place] [address], [address] [place] [address] [email or web address] Insurance Assigned Provider 08/01/23 documented as of this encounter Additional Source Comments The information contained in this document represents components of the legal health record. It is not the complete legal health record.[facility]
--- OUTSIDE RECORDS SUMMARY | 2025-03-18 19:30 | XMS_ITS | Encounter Summary ---
Author Organization [facility] Address [facility] [address] [place] [address] Phone Care Team Providers Care Drainage Inspector Name Role Phone Marion Mattson MD Unavailable [phone] Kelvin Acosta MD Unavailable [phone] Nato Martinez MD Primary Care Provider Yessica Hernandes MD Unavailable Karen Yen MD Unavailable Nato Martinez MD Unavailable [phone] Encounter Details Date Type Department Care Team (Late st Contact Info) Description 12/02/2021 Procedure Pass [facility], [address] [address] Social History Tobacco Use Types Packs/Day Years [...] documented as of this encounter Care Teams Drainage Inspector Relationship Specialty Start Date End Date Nato Martinez MD [address] [place] [address], [address] [place] [address] PCP - General Internal Medicine 05/13/17 Marion Mattson MD [address] [place] [address], [address] [place] [address] Historical LMR Provider 02/14/17 Kelvin Acosta MD [address] [place] [address] [email or web address] Historical LMR Provider 02/14/17 Yessica Hernandes MD [address] [address] [email or web address] Obstetrics and Gynecology 09/02/17 Karen Yen MD [address] [place] [address] Medical Oncology 09/02/17 Nato Martinez MD [address] [place] [address], [address] [place] [address] [email or web address] Insurance Assigned Provider 08/01/23 documented as of this encounter Additional Source Comments The information contained in this document represents components of the legal health record. It is not the complete legal health record.[facility]
--- OUTSIDE RECORDS SUMMARY | 2025-03-18 19:30 | XMS_ITS | Encounter Summary ---
Author Organization [facility] Address [facility] [address] [place] [address] Phone Care Team Providers Care Staffing Operations Manager Name Role Phone Marion Mattson MD Unavailable Kelvin Acosta MD Unavailable [phone] Nato Martinez MD Primary Care Provider Yessica Hernandes MD Unavailable Karen Yen MD Unavailable Nato Martinez MD Unavailable [phone] Encounter Details Date Type Department Care Team (Late st Contact Info) Description 03/24/2022 Procedure Pass [facility], Ct Scan - [address] [address] Social History Tobacco Use Types Packs/Day Years [...] documented as of this encounter Care Teams Staffing Operations Manager Relationship Specialty Start Date End Date Nato Martinez MD [address] [place] [address], [address] [place] [address] PCP - General Internal Medicine 05/13/17 Marion Mattson MD [address] [place] [address], [address] [place] [address] [email or web address] Historical LMR Provider 02/14/17 Kelvin Acosta MD [address] [place] [address] [email or web address] Historical LMR Provider 02/14/17 Yessica Hernandes MD [address], [place] [address] [email or web address] Obstetrics and Gynecology 09/02/17 Karen Yen MD [address] [place] [address] [email or web address] Medical Oncology 09/02/17 Nato Martinez MD [address] [place] [address], [address] [place] [address] Insurance Assigned Provider 08/01/23 documented as of this encounter Additional Source Comments The information contained in this document represents components of the legal health record. It is not the complete legal health record.[facility]
--- OUTSIDE RECORDS SUMMARY | 2025-03-18 19:30 | XMS_ITS | Encounter Summary ---
Author Organization [facility] Address [facility] [address] [place] [address] Phone Care Team Providers Care Newswriter Name Role Phone Marion Mattson MD Unavailable Kelvin Acosta MD Unavailable [phone] Nato Martinez MD Primary Care Provider Yessica Hernandes MD Unavailable Karen Yen MD Unavailable Nato Martinez MD Unavailable [phone] Encounter Details Date Type Department Care Team (Late st Contact Info) Description 06/30/2022 Ancillary [facility] [address] [facility] [address]rd Floor, [address] [place] [address] Dragan Figueroa MD [address] [place] [address] [email or web address] Social History Tobacco Use Types Packs/Day Years [...] documented as of this encounter Care Teams Newswriter Relationship Specialty Start Date End Date Nato Martinez MD [address] [place] [address], [address] [place] [address] PCP - General Internal Medicine 05/13/17 Marion Mattson MD [address] [place] [address], [address] [place] [address] [email or web address] Historical LMR Provider 02/14/17 Kelvin Acosta MD [address] [place] [address] [email or web address] Historical LMR Provider 02/14/17 Yessica Hernandes MD [address] [place] [address] [email or web address] Obstetrics and Gynecology 09/02/17 Karen Yen MD [address] [place] [address] Medical Oncology 09/02/17 Nato Martinez MD [address] [place] [address], [address] [place] [address] [email or web address] Insurance Assigned Provider 08/01/23 documented as of this encounter Additional Source Comments The information contained in this document represents components of the legal health record. It is not the complete legal health record.[facility]
--- OUTSIDE RECORDS SUMMARY | 2025-03-18 19:30 | XMS_ITS | Encounter Summary ---
Author Organization [facility] Address [address] [place] [address] Phone Care Team Providers Care Metal Furniture Assembler Name Role Phone Marion Mattson MD Unavailable Kelvin Acosta MD Unavailable [phone] Qi Velez MD Unavailable [phone] Papa Gillespie MD Unavailable Nato Martinez MD Primary Care Provider Yessica Hernandes MD Unavailable Karen Yen MD Unavailable Nato Martinez MD Unavailable [phone] Encounter Details Date Type Department Care Team (Late st Contact Info) Description 12/06/2019 Transcribe Orders [facility] [address] [place] [address] Hector Davenport MD, [place] [address] [id number] [email or web address] Social History Tobacco Use Types Packs/Day Years Used Date Smoking Tobacco: Every Day Cigarettes 0.3 43 Smokeless Tobacco: Never Comments:Started at age 18. 5 a day Alcohol Use Standard Drinks/Week Comments Yes 7 [...] documented as of this encounter Care Teams Metal Furniture Assembler Relationship Specialty Start Date End Date Nato Martinez MD [address] [place] [address], [address] [place] [address] [email or web address] PCP - General Internal Medicine 05/13/17 Marion Mattson MD [address] [place] [address] [address] [place] [address] [email or web address] Historical LMR Provider 02/14/17 Kelvin Acosta MD [address] [place] [address] [email or web address] Historical LMR Provider 02/14/17 Qi Velez MD [address] [place] [address] Historical LMR Provider 02/14/17 2 Papa Gillespie MD [address] [place] [address], [address] [address] [email or web address] Historical LMR Provider 02/14/17 05/04/21 Yessica Hernandes MD [address] [address] [email or web address] Obstetrics and Gynecology 09/02/17 Karen Yen MD [address] [place] [address] [email or web address] Medical Oncology 09/02/17 Nato Martinez MD [address] [place] [address], [address] [place] [address] [email or web address] Insurance Assigned Provider 08/01/23 documented as of this encounter Additional Source Comments The information contained in this document represents components of the legal health record. It is not the complete legal health record.[facility]
--- OUTSIDE RECORDS SUMMARY | 2025-03-18 19:30 | XMS_ITS | Encounter Summary ---
Author Organization [facility] Address [facility] [address] [place] [address] Phone Care Team Providers Care Detonator Maker Name Role Phone Marion Mattson MD Unavailable Kelvin Acosta MD Unavailable [phone] Nato Martinez MD Primary Care Provider [phone] Yessica Heranndes MD Unavailable Karen Yen MD Unavailable [phone] Nato Martinez MD Unavailable [phone] Encounter Details Date Type Department Care Team (Late st Contact Info) Description 01/17/2023 Procedure Pass Non-Invasive Cardiology [address] [place] [address] Social History Tobacco Use Types Packs/Day Years [...] with a working camera? Not on file Comments No Sex and Gender Information Value [...] Indicated Resolved Time COVID-19 10/07/2024 10/07/2024 10/28/2024 1:2 1 AM EDT Assessment Noted Time PHQ-2 Depression Total Score: 0 01/24/20 23 10:33 AM EDT documented as of this encounter Care Teams Detonator Maker Relationship Specialty Start Date End Date Nato Martinez MD [address] [place] [address], [address] [place] [address] [email or web address] PCP - General Internal Medicine 05/13/17 Marion Mattson MD [address] [place] [address], [address] [place] [address] [email or web address] Historical LMR Provider 02/14/17 Kelvin Acosta MD [address] [place] [address] [email or web address] Historical LMR Provider 02/14/17 Yessica Hernandes MD [facility] [place] [address] [email or web address] Obstetrics and Gynecology 09/02/17 Karen Yen MD [address] [place] [address] [email or web address] Medical Oncology 09/02/17 Nato Martinez MD [address] [place] [address], [address] [place] [address] [email or web address] Insurance Assigned Provider 08/01/23 documented as of this encounter Additional Source Comments The information contained in this document represents components of the legal health record. It is not the complete legal health record.[facility]
--- OUTSIDE RECORDS SUMMARY | 2025-03-18 19:30 | XMS_ITS | Encounter Summary ---
Author Organization [facility] Address [address] [place] [address] [place] [address] Phone Care Team Providers Care Pathology Laboratory Aides Teacher Name Role Phone Marion Mattson MD Unavailable Kelvin Acosta MD Unavailable [phone] Nato Martinez MD Primary Care Provider Yessica Hernandes MD Unavailable Karen Yen MD Unavailable [phone] Nato Martinez MD Unavailable [phone] Encounter Details Date Type Department Care Team (Late st Contact Info) Description 06/30/2022 Procedure Pass Non-Invasive Cardiology [address] [place] [address] Social History Tobacco Use Types Packs/Day Years [...] Time PHQ-2 Depression Total Score: 0 07/31/19 21 10:32 AM EDT documented as of this encounter Care Teams Pathology Laboratory Aides Teacher Relationship Specialty Start Date End Date Nato Martinez MD [address] [place] [address], [address] [place] [address] PCP - General Internal Medicine 05/13/17 Marion Mattson MD [address] [place] [address], [address] [place] [address] [email or web address] Historical LMR Provider 02/14/17 Kelvin Acosta MD [address] [place] [address] [email or web address] Historical LMR Provider 02/14/17 Yessica Hernandes MD [address] [place] [address] [email or web address] Obstetrics and Gynecology 09/02/17 Karen Yen MD [address] [place] [address] Medical Oncology 09/02/17 Nato Martinez MD [address] [place] [address], [address] [place] [address] Insurance Assigned Provider 08/01/23 documented as of this encounter Additional Source Comments The information contained in this document represents components of the legal health record. It is not the complete legal health record.[facility]
--- OUTSIDE RECORDS SUMMARY | 2025-03-18 19:30 | XMS_ITS | Encounter Summary ---
Author Organization [facility] Address [facility] [employer] [facility] [address] [place] [address] Phone Care Team Providers Care Hat Brim Curler Name Role Phone Marion Mattson MD Unavailable Kelvin Acosta MD Unavailable [phone] Nato Martinez MD Primary Care Provider [phone] Yessica Hernandes MD Unavailable Karen Yen MD Unavailable [phone] Nato Martinez MD Unavailable [phone] Encounter Details Date Type Department Care Team (Late st Contact Info) Description 10/01/2022 Procedure Pass Non-Invasive Cardiology [address] [place] [address] Social History Tobacco Use Types Packs/Day Years [...] documented as of this encounter Care Teams Hat Brim Curler Relationship Specialty Start Date End Date Nato Martinez MD [address] [place] [address], [address] [place] [address] [email or web address] PCP - General Internal Medicine 05/13/17 Marion Mattson MD [address] [place] [address], [address] [place] [address] [email or web address] Historical LMR Provider 02/14/17 Kelvin Acosta MD [address] [place] [address] [email or web address] Historical LMR Provider 02/14/17 Yessica Hernandes MD [facility] [place] [address] [email or web address] Obstetrics and Gynecology 09/02/17 Karen Yen MD [address] [place] [address] [email or web address] Medical Oncology 09/02/17 Nato Martinez MD [address] [place] [address], [address] [place] [address] [email or web address] Insurance Assigned Provider 08/01/23 documented as of this encounter Additional Source Comments The information contained in this document represents components of the legal health record. It is not the complete legal health record.[facility]
--- OUTSIDE RECORDS SUMMARY | 2025-03-18 19:30 | XMS_ITS | Encounter Summary ---
Author Organization [facility] Address [address] [place] [address] Phone Care Team Providers Care Sales Inspector Name Role Phone Marion Mattson MD Unavailable Kelvin Acosta MD Unavailable [phone] Qi Velez MD Unavailable [phone] Papa Gillespie MD Unavailable [phone] Nato Martinez MD Primary Care Provider Yessica Hernandes MD Unavailable Karen Yen MD Unavailable Nato Martinez MD Unavailable [phone] Reason for Referral * Occupational Therapy (Routine) - Closed Specialty Diagnoses / Procedures Referred By Austin boston Referred To Contact Occupational Therapy Diagnoses Encounter for rehabilitation Caro Esposito MD Phone: tel: fax: [address] [address] Phone: tel: Referral ID Status Reason Start Date Expiration Date Visits Re quested Visits Authorized [id number] Closed 01/25/2020 04/26/2020 3 3 Encounter Details Date Type Department Care Team (Latest Contact Info) Description 01/25/2020 Transcribe Orders [facility] [address] [place] [address] Caro Esposito MD [address] [place] [address] Encounter for rehabilitation (Primary Dx) Social History Tobacco Use Types [...] as of this encounter Plan of Treatment Scheduled Referrals Name Type Priority Associated Diagnoses Orde r Schedule Ambulatory referral to [facility] Occupational Therapy Outpatient Referral Routine Encounter for rehabilitation Ordered: 01/25/2020 documented as of this encounter Visit Diagnoses Diagnosis Encounter for rehabilitation- Primary documented in this encounter Additional Health Concerns Infection Onset Date Last Indicated Resolved Time CoV-Risk 01/18/2021 01/18/2021 01/28/2021 1:24 AM EDT COVID-19 10/07/2024 10/07/2024 10/28/2024 1:21 AM EDT documented as of this encounter Care Teams Sales Inspector Relationship Specialty Start Date End Date Nato Martinez MD [address] [place] [address], [address] [place] [address] PCP - General Internal Medicine 05/13/17 Marion Mattson MD [address] [place] [address], [address] [place] [address] Historical LMR Provider 02/14/17 Kelvin Acosta MD [address] [place] [address] [email or web address] Historical LMR Provider 02/14/17 Qi Velez MD [address] [place] [address] Historical LMR Provider 02/14/17 2 Papa Gillespie MD [address] [facility], [address] [place] [address] Historical LMR Provider 02/14/17 05/04/21 Yessica Hernandes MD [address] [place] [address] [email or web address] Obstetrics and Gynecology 09/02/17 Karen Yen MD [address] [place] [address] Medical Oncology 09/02/17 Nato Martinez MD [address] [place] [address], [address] [place] [address] Insurance Assigned Provider 08/01/23 documented as of this encounter Additional Source Comments The information contained in this document represents components of the legal health record. It is not the complete legal health record.[facility]
--- OUTSIDE RECORDS SUMMARY | 2025-03-18 19:30 | XMS_ITS | Encounter Summary ---
Author Organization [facility] Address [address] [place] [address] [place] [address] Phone Care Team Providers Care Creasing Machine Operator Name Role Phone Marion Mattson MD Unavailable Kelvin Acosta MD Unavailable [phone] Nato Martinez MD Primary Care Provider Yessica Hernandes MD Unavailable Karen Yen MD Unavailable [phone] Nato Martinez MD Unavailable [phone] Encounter Details Date Type Department Care Team (Late st Contact Info) Description 06/12/2021 Procedure Pass Non-Invasive Cardiology [address] [place] [address] Social History Tobacco Use Types Packs/Day Years [...] documented as of this encounter Care Teams Creasing Machine Operator Relationship Specialty Start Date End Date Nato Martinez MD [address] [place] [address], [address] [place] [address] PCP - General Internal Medicine 05/13/17 Marion Mattson MD [address] [place] [address], [address] [place] [address] [email or web address] Historical LMR Provider 02/14/17 Kelvin Acosta MD [address] [place] [address] [email or web address] Historical LMR Provider 02/14/17 Yessica Hernandes MD [address] [place] [address] [email or web address] Obstetrics and Gynecology 09/02/17 Karen Yen MD [address] [place] [email or web address] Medical Oncology 09/02/17 Nato Martinez MD [address] [place] [address], [address] [place] [address] Insurance Assigned Provider 08/01/23 documented as of this encounter Additional Source Comments The information contained in this document represents components of the legal health record. It is not the complete legal health record.[facility]
--- OUTSIDE RECORDS SUMMARY | 2025-03-18 19:30 | XMS_ITS | Encounter Summary ---
Author Organization [facility] Address [address] [place] [address] Care Team Providers Care Nursing Unit Manager Name Role Phone Nato Martinez MD Primary Care Provider [phone] Encounter Details Date Type Department Care Team (Late st Contact Info) Description 04/14/2022 Biolase Message [facility] [employer] Management [address] [place] [address] [employer], Generic Provider Pending sale to [facility] [employer] [place] [phone] your billing inquiry Social History Tobacco Use Types Packs/Day Years Used Date Smoking Tobacco: Every Day Cigarettes Smokeless Tobacco: Never Comments:: Alcohol Use Standard Drinks/Week Comments Yes 5 (1 standard drink = 0.6 oz pur e alcohol) Comments Unknown Sex and Gender Information Value Date Recorded Sex Assigned at Female 04/02/2020 12:30 PM EST Legal Sex Female 10:11 AM EDT Gender Identity Female 09/16/2017 4:15 PM EDT Sexual Orientation Straight 04/02/2020 12 :30 PM EST 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 Not on file Not on file documented as of this encounter Plan of Treatment Upcoming Encounters Date Type Department Care Team (Late st Contact Info) Description 04/10/2025 10:00 AM EST Office Visit [facility] [address] [place] [address] [employer] Truck Driver: Caro Hansen MD [address] [place] [address] 06/01/2025 4:40 PM EST Follow-Up [facility] [address] [place] [address] [employer] Truck Driver: Dio James MD [address] [place] [address] 08/21/2025 10:00 AM EDT Office Visit [facility] [address] [place] [address] [employer] Truck Driver: Caro Hansen MD [address] [place] [address] documented as of this encounter Visit Diagnoses Not on filedocumented in this encounter Care Teams Nursing Unit Manager Relationship Specialty Start Date End Date Nato Martinez MD [address] [place] [address], [address] [place] [address] PCP - General 11/13/16 documented as of this encounter
--- OUTSIDE RECORDS SUMMARY | 2025-03-18 19:30 | XMS_ITS | Encounter Summary ---
Author Organization [facility] Address [address] [facility] [address] [place] [address] Phone Care Team Providers Care Paper Machine Backtender Name Role Phone Marion Mattson MD Unavailable Kelvin Acosta MD Unavailable [phone] Nato Martinez MD Primary Care Provider Yessica Hernandes MD Unavailable Karen Yen MD Unavailable [phone] Nato Martinez MD Unavailable [phone] Encounter Details Date Type Department Care Team (Late st Contact Info) Description 10/01/2022 Ancillary Orders Non-Invasive Cardiology [address] [place] [address] Tadeo Calderón DO [facility] [address] [place] [address] [email or web address] TIA (transient ischemic attack) Social History Tobacco [...] as of this encounter Visit Diagnoses Diagnosis TIA (transient ischemic attack) Unspecified transient cerebral ischemia documented in this encounter Additional Health Concerns Infection Onset Date Last Indicated Resolved Time COVID-19 10/07/2024 10/07/2024 10/28/2024 1:21 AM EDT Assessment Noted Time PHQ-2 Depression Total Score: 0 07/31/19 21 10:32 AM EDT documented as of this encounter Care Teams Paper Machine Backtender Relationship Specialty Start Date End Date Nato Martinez MD [address] [place] [address], [address] [place] [address] PCP - General Internal Medicine 05/13/17 Marion Mattson MD [address] [place] [address], [address] [place] [address] Historical LMR Provider 02/14/17 Kelvin Acosta MD [address] [place] [address] [email or web address] Historical LMR Provider 02/14/17 Yessica Hernandes MD [address], [place] [address] [email or web address] Obstetrics and Gynecology 09/02/17 Karen Yen MD [address] [place] [email or web address] Medical Oncology 09/02/17 Nato Martinez MD [address] [place], [place] [address] [place] [address] [email or web address] Insurance Assigned Provider 08/01/23 documented as of this encounter Additional Source Comments The information contained in this document represents components of the legal health record. It is not the complete legal health record.[facility]
--- OUTSIDE RECORDS SUMMARY | 2025-03-18 19:30 | XMS_ITS | Encounter Summary ---
Author Organization [facility] Address [address] [place] [address] [place] [address] Phone Care Team Providers Care Rug Weaver Name Role Phone Marion Mattson MD Unavailable [phone] Kelvin Acosta MD Unavailable [phone] Nato Martinez MD Primary Care Provider [phone] Yessica Hernandes MD Unavailable Karen Yen MD Unavailable [phone] Nato Martinez MD Unavailable [phone] Encounter Details Date Type Department Care Team (Late st Contact Info) Description 06/30/2022 Ancillary Orders Non-Invasive Cardiology [address] [place] [address] Dragan Figueroa MD [address] [place] [address] [email or web address] TIA (transient ischemic attack) Social History Tobacco [...] documented as of this encounter Results * DEVICE CHECK: ILR IN-HOME INTERROGATION (06/30/2022 10:59 AM EST) Narrative Tadeo Calderón DO - 07/03/2022 9:09 AM EST Remote interrogation of implantable loop recorder. Reason for implant: TIA Pl[employer] Parts Fabricator Trimmer: [employer] Symptoms: 0 Pauses: 0 Bradycardia: 0 Tachycardia: 0 AT/AF: 0 Battery status: OK Additional comments: Device functioning appropriately. Normal device function. Patient to follow-up for continued monitoring every 1 month. Report prepared by Olivia Harrison NP Dragan Figueroa MD CV CARDIAC SERVICES ORDERABL ES Final Result documented in this encounter Visit Diagnoses Diagnosis TIA (transient ischemic attack) Unspecified transient cerebral ischemia TIA (transient ischemic attack) Unspecified transient cerebral ischemia documented in this encounter Additional Health Concerns Infection Onset Date Last Indicated Resolved Time COVID-19 10/07/2024 10/07/2024 10/28/2024 1:21 AM EDT Assessment Noted Time PHQ-2 Depression Total Score: 0 07/31/19 21 10:32 AM EDT documented as of this encounter Care Teams Rug Weaver Relationship Specialty Start Date End Date Nato Martinez MD [address] [place] [address], [address] [place] [address] PCP - General Internal Medicine 05/13/17 Marion Mattson MD [address] [place] [address], [address] [place] [address] Historical LMR Provider 02/14/17 Kelvin Acosta MD [address] [place] [address] [email or web address] Historical LMR Provider 02/14/17 Yessica Hernandes MD [address] [place] [address] [email or web address] Obstetrics and Gynecology 09/02/17 Karen Yen MD [address] [place] [address] [email or web address] Medical Oncology 09/02/17 Nato Martinez MD [address] [place] [address], [address] [place] [address] [email or web address] Insurance Assigned Provider 08/01/23 documented as of this encounter Additional Source Comments The information contained in this document represents components of the legal health record. It is not the complete legal health record.[facility]
--- OUTSIDE RECORDS SUMMARY | 2025-03-18 19:30 | XMS_ITS | Encounter Summary ---
Author Organization [facility] Address [facility] [address] [place] [address] Phone Care Team Providers Care Center Medical And Lab Director Name Role Phone Marion Mattson MD Unavailable [phone] Kelvin Acosta MD Unavailable [phone] Nato Martinez MD Primary Care Provider Yessica Hernandes MD Unavailable Karen Yen MD Unavailable [phone] Nato Martinez MD Unavailable [phone] Encounter Details Date Type Department Care Team (Late st Contact Info) Description 12/02/2021 Procedure Pass [address] [address] Social History Tobacco Use Types Packs/Day Years [...] documented as of this encounter Care Teams Center Medical And Lab Director Relationship Specialty Start Date End Date Nato Martinez MD [address] [place] [address], [address] [place] [address] PCP - General Internal Medicine 05/13/17 Marion Mattson MD [address] [place] [address], [address] [place] [address] Historical LMR Provider 02/14/17 Kelvin Acosta MD [address] [place] [address] [email or web address] Historical LMR Provider 02/14/17 Yessica Hernandes MD [address], [place] [address] [email or web address] Obstetrics and Gynecology 09/02/17 Karen Yen MD [address] [place] [address] Medical Oncology 09/02/17 Nato Martinez MD [address] [place] [address], [address] [place] [address] [email or web address] Insurance Assigned Provider 08/01/23 documented as of this encounter Additional Source Comments The information contained in this document represents components of the legal health record. It is not the complete legal health record.[facility]
--- OUTSIDE RECORDS SUMMARY | 2025-03-18 19:31 | XMS_ITS | Encounter Summary ---
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 Duff:CHRIS documented in this encounter Plan of Treatment Upcoming Encounters Date Type Department Care Team (Late Contact Info) Description 04/10/2025 10:00 AM EST Office Visit [facility] [address] [place] [address] Packager Hand: Caro Hansen MD [address] [place] [address] 06/01/2025 4:40 PM EST Follow-Up [facility] [address] [place] [address] Packager Hand: Dio James MD [address] [place] [address] 08/21/2025 10:00 AM EDT Office Visit [facility] [address] [place] [address] Packager Hand: Caro Hansen MD [address] [place] [address] documented as of this encounter Visit Diagnoses Not on filedocumented in this encounter Care Teams Fish Frog Or Oyster Farmer Relationship Specialty Start Date End Date Nato Martinez MD [address] [place] [address], [address] [place] [address] PCP - General 11/13/16 documented as of this encounter
--- OUTSIDE RECORDS SUMMARY | 2025-03-18 19:31 | XMS_ITS | Encounter Summary ---
Author Organization [facility] Address [facility] [address] [place] [address] Phone Care Team Providers Care Art Education Professor Name Role Phone Marion Mattson MD Unavailable Kelvin Acosta MD Unavailable [phone] Nato Martinez MD Primary Care Provider [phone] Yessica Hernandes MD Unavailable Karen Yen MD Unavailable [phone] Nato Martinez MD Unavailable [phone] Encounter Details Date Type Department Care Team (Late st Contact Info) Description 10/01/2022 Procedure Pass Non-Invasive Cardiology [address] [place] [address] Social History Tobacco Use Types Packs/Day Years [...] documented as of this encounter Care Teams Art Education Professor Relationship Specialty Start Date End Date Nato Martinez MD [address] [place] [address], [address] [place] [address] [email or web address] PCP - General Internal Medicine 05/13/17 Marion Mattson MD [address] [place] [address], [address] [place] [address] [email or web address] Historical LMR Provider 02/14/17 Kelvin Acosta MD [address] [place] [address] [email or web address] Historical LMR Provider 02/14/17 Yessica Hernandes MD [facility] [place] [address] [email or web address] Obstetrics and Gynecology 09/02/17 Karen Yen MD [address] [place] [address] [email or web address] Medical Oncology 09/02/17 Nato Martinez MD [address] [place] [address], [address] [place] [address] [email or web address] Insurance Assigned Provider 08/01/23 documented as of this encounter Additional Source Comments The information contained in this document represents components of the legal health record. It is not the complete legal health record.[facility]
--- OUTSIDE RECORDS SUMMARY | 2025-03-18 19:31 | XMS_ITS ---
Author Organization [facility] Address [address] [place] [address] Care Team Providers Care Train Attendant Name Role Phone Nato Martinez MD Primary Care Provider [phone] Active Problems Problem Noted Date Diagnosed Date Pain in both hands 12/12/2024 Essential tremor 08/18/2023 Syrinx 10/30/2020 Overview (10/30/2020): T spine Bulbar weakness 10/30/2020 Hypersomnia 10/30/2020 Overview (10/30/2020): Severe with sleep attacks No cataplexy or sleep paralysis Dreams during nap PSG/MSLT off centrally acting meds, mean SL 5 minutes, no SOREM and REM latency during PSG was > 2 hours Assessment & Plan (06/26/2023 12:27 PM EST): Belén's symptoms are similar to when I saw her in 2020, greatly affecting QOL. I would still recommend an in lab polysomnogram with TcCO2 monitoring for diagnostic and treatment purposes. Unfortunately the lab I send pts to for testing is located in [place] and given where she lives and her driving/transportation related limitations this would not be an option for her. I've recommended that she consult with Dr. Lolly English or Liliane Garibay at [facility] to have in lab testing there (had a previous appt with Dr. Garibay but was changed to see her father at the time of arrival instead and it didn't go well). Will send notes to Dr. English. Patient will contact her office Assessment & Plan (12/11/2020 8:44 PM EDT): PSG/MSLT done off centrally acting medications document a central cause of hypersomnia but no sleep onset REM. She tried armodafinil but developed palpitations/SVT at a time when she was off PAP. Presumed to have significant coronary artery disease, cardiology added imdur, BP now controlled now with metoprolol, Amlodipine, Clonidine. Other stimulants have more cardiovascular side effects. Walking a tight rope between maintaining wake and cardiovascular side effects. Reviewed meds to confirm that sedating meds taken at night (clonidine, baclofen) and alerting meds during the day. I didn't find clinical trial for use of Wakix in [place] (works through histamine pathways) which would have fewer CV side effects; contacted rep; can only get through specialty pharmacy and out of pocket cost would be >$10,000/month for starting dose. Not a prn med. Sunosi would have side effects and needs to be taken daily. The goal is to treat her sleep disordered breathing then re: start modfanil/armodafinil. Assessment & Plan (10/30/2020 11:41 PM EDT): Severe with sleep attacks No cataplexy or sleep paralysis Dreams during nap PSG/MSLT off centrally acting meds, mean SL 5 minutes, no SOREM and REM latency during PSG was > 2 hours History consistent with a central form of hypersomnia, not typical for narcolepsy though. I think she is just falling asleep and dropping things rather than dropping things secondary to sudden onset of paralysis. Pt's with cataplexy are awake when they lose muscle tone, she is not. She seems to get an adequate quantity of sleep; no circadian rhythm issues. Will restart treatment of her sleep related hypoventilation in the setting of neuromuscular weakness with the hopes of improving sleep quality a bit. The next step would be a wake promoting medication with the understanding that most traditional stimulants can cause or exacerbate HTN, arrhythmia and she has a h/o HTN, palpitations, and recent ? TIA. Options include modafinil, armodafinil (+/- tolerated last time), Vyvanse,methyphendates/amphetamines (higher risk for CV side effects), sunosi (dopamine/norepi; can also exacerbate HTN, arrhtyhmia) and potentially Wakix (histaminergic) which may have the best benefit/risk option but is currently only FDA approved for narcolepsy. Will see if there are clinical trials or data for Wakix in [place]. Recent EKG with QTc 420 and no contraindications. Reviewed with pt. Neuromuscular respiratory weakness 10/30/2020 Overview (10/30/2020): Decreased MIPs and MEPS in the setting of MS Cough intact Voice weak Oropharyngeal dysphagia No aspiration Assessment & Plan (12/11/2020 8:45 PM EDT): Decreased MIPs and MEPS in the setting of MS; Cough intact; Voice weak; Oropharyngeal dysphagia; No aspiration. Ordered PFTS sitting and supine with MIPS/MEPS at [facility]. Assessment & Plan (10/30/2020 11:30 PM EDT): Very complicated pt but in summary she appears to have a significant degree of respiratory muscle weakness (exp > insp) with increasing bulbar symptoms in the setting of advanced multiple sclerosis. The notable objective abnormalities include decreased MEPS and MIPS over the last 1-2 years (+29, -28; between 11-30% of predicted); and a moderate reduction in her sitting vital capacity of 60%. This alone qualifies her for treatment with BiPAP during sleep. Sleep related hypoventilation has been suggested with an increase in her TcCO2 by 9 during her most recent sleep study and this may under represent the true degree of her sleep disordered breathing because the study was done without her usual baclofen (which can exacerbate obstructive events and hypoventilation). Daytime hypoventilation not present fortunately as documented by a normal waking PCO2 and normal serum bicarbonate. It appears that she has gain 10 lbs since her last sleep study and while not a large weight gain, when taken in context of symptoms suggestive of progressive respiratory neuromuscular weakness this could be an exacerbator. The mechanism for respiratory weakness could be related to cervical, medullary involvement of MS leading to central hypoventilation without significant symptoms of dyspnea; peripheral causes such as diaphragm weakness, etc is usually also associated with dyspnea (not a major complaint for her). Bulbar involvement also usually with a central as opposed to peripheral cause; Considered other causes of bulbar symptoms with respiratory muscle weakness chandrakant in the context of her multiple auto-immune disorders and previous/current treatments (MG, ALS, myopathies, paraneoplastic syndromes, hypothyroid, metabolic disorders etc) After reviewing her sleep studies and her symptoms recommend that she start using the BiPAP machine that she owns. Worked with her and her to first assemble and check her equipment; Walked them through adjustment of settings: IPAP 10, EPAP 4, we increased Ti max from 2 to 3 seconds, Ti min from 0.3 to 1 sec, + easy breath (so can't adjust rise time), adjusted climate settings, for now trigger sensitivity is medium but have option to increase sensitivity if she finds it difficult to trigger the unit. Worked with her re: mask fit/adjustment; called [employer] company to see what steps are required to get updated supplies when needed. Had her try the settings and she found them comfortable. Plan to start to use tonight. Showed her how to monitor use and effectiveness. Will ask DME to tag me on her device so I can check data real time and remotely. Atherosclerosis of coronary artery of [place] heart with stable angina pectoris 10/05/2020 Overview (10/30/2020): Intermittent anginal symptoms, nuclear stress test in 2020 shows a very small reversible defect. We will add Imdur to her regimen Chest pain 06/11/2020 Overview (10/30/2020): Last Assessment & Plan: As mentioned she is very concerned about this I am ordering her a pharmacologic stress test History of TIA (transient ischemic attack) 05/21 Assessment & Plan (05/21/2020 10:48 AM EST): History of TIAs affecting the left side since 2009, which appear primarily related to elevated blood pressure. Plavix is no longer needed as 3 weeks have passed. Dosing of atorvastatin should be adjusted based on LDL level with a target of < 70 mg/dL. Because her blood pressure tends to be elevated in the morning, I recommended that she take aspirin at night since it has mild blood pressure lowering effects. She was encouraged to keep exercising. Target blood pressure is less than 130 mmHg. TIA (transient ischemic attack) 05/02/2020 Overview (10/30/2020): Last Assessment & Plan: None recurrent Sjogren's syndrome with keratoconjunctivitis sic ca 04/05/2020 Overview (10/30/2020): Per pt, was dx after lip biopsy 20 yrs ago at [facility]. Repeat Ab test March 2020 negative. Mild persistent asthma without complication 07/2019 Respiratory abnormality 11/29/2019 Sleep disturbance 11/29/2019 Essential hypertension 09/13/2019 Hair loss 01/10/2019 Overview (10/30/2020): Last Assessment & Plan: I evaluated her for thyroid dysfunction such as hyperthyroidism for hair loss but she is chemically euthyroid so this is not the etiology for hair loss. Sometimes taking zinc supplement may be helpful for hair loss. Allergic asthma, mild intermittent, uncomplicate d 06/01/2018 Overview (10/30/2020): Last Assessment & Plan: Will resume Arnuity. If not covered, another low-dose inhaled corticosteroid could be tried. We will repeat PFT next year. She is up to date with the influenza vaccine this season. Chronic respiratory failure 06/01/2018 Overview (10/30/2020): H/o respiratory muscle weakness in the setting of MS (MIPS 35%; MEP 11%; FVC 61%, FRC 84%; TLC 92% with high RV; normal waking and sleeping CO2); mild AMEE AHI 4 (off baclofen; but takes 50 mg baclofen nightly). PSG 05/04/2015 AHI 3.7 CPAP/BiPAP titration: 03/12/2016 not able to tolerate CPAP, tolerated BiPAP IPAP 10, EPAP 4-5 Couldn't tolerate CPAP, in lab IPAP 10 EPAP 4; treated with BiPAP IPAP 10 EPAP 6 (aerophagia) at home. Changed to Astral ventilatory (AVAPS) by Dr. Barrios; PSG/MSLT off baclofen, 02/10/2020 at [facility], AHI 1, 88%, TcCO2 increased from 37 -> 43, MSLT mean SL 5 minutes, no SOREM AVAPs d/c'd 10/2020: Danette Assessment & Plan (12/11/2020 8:01 PM EDT): She has resp muscle weakness (low MIP and MEP), last PFTs with preserved FVC, TLC in 2018; The previous diagnostic sleep studies and PSG/MSLT were done off baclofen but she takes 50 mgs of baclofen before bed to control spasms from her MS. Baclofen can exacerbate respiratory muscle weakness and contribute to increasing AMEE. Additionally having bulbar symptoms with dysphonia and at times problems swallowing. Today we check mask fit (good), technique good. Reviewed limited compliance data, residual central apnea with mildly elevated VT and MV. We decreased the IPAP from 10 to 8, continued easy breath and current rise time/Ti max, Ti min; increased humidity, left EPAP at 4. VT 475; MV 7.6. She will try it tonight. I've recommended a facility based BiPAP titration at [facility] with TCCO2 monitoring, requested [facility]. The study will be done on her usual meds including baclofen. Treating sleep disordered breathing should help with sleep quality and help with daytime sleepiness; would not expect 100% resolution of sleepiness but would expect it to be better; Additionally treating sleep disordered breathing can help stabilize her arrhythmia and may help her tolerate wake promoting medications with fewer side effects. Seropositive rheumatoid arthritis 05/25/2017 Overview (10/30/2020): Trying to get a new pediatric neuropsychologist. Plaquenil dc'd after Ophtho exam revealed possible retinal toxicity. [facility] Last Assessment & Plan: I requested a new set of lab tests today to better assess her disease activity. We may consider sulfasalazine versus methotrexate versus Arava in place of Plaquenil. Joint protection, energy conservation. Gentle, regular exercise routine. Avoid falls, injuries, overuse. Keep body weight in ideal range for her height. She may benefit from topical cream such as Arnica, Biofreeze, Aspercreme versus medicated patches such as salonpas, icy hot patch 2-3 times daily and if necessary at bedtime x 3 weeks. 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 De Los Santos. Menopausal state 05/05/2017 Need for prophylaxis against urinary tract infec tion 05/05/2017 Tobacco dependence syndrome 05/05/2017 Overview (10/30/2020): Last Assessment & Plan: We will provide nicotine replacement therapy. 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 Past Treatment and Therapy Plans Resolved Problems Problem Noted Date Diagnosed Date Resolved Date Elevated antibody levels 10/12/2013
--- OUTSIDE RECORDS SUMMARY | 2025-03-18 19:31 | XMS_ITS | Encounter Summary ---
Author Organization [facility] Address [facility] [employer] [facility] [address] [place] [address] Phone Care Team Providers Care Heating And Air Conditioning Mechanic Name Role Phone Marion Mattson MD Unavailable [phone] Kelvin Acosta MD Unavailable [phone] Qi Velez MD Unavailable [phone] Papa Gillespie MD Unavailable Nato Martinez MD Primary Care Provider Yessica Hernandes MD Unavailable Karen Yen MD Unavailable Naot Martinez MD Unavailable [phone] Encounter Details Date Type Department Care Team (Late st Contact Info) Description 02/04/2021 Ancillary [facility] [address] [facility] 3rd Floor, [address] [place] [address] Mable Sutherland MD [address] [place] [address] [email or web address] Social History Tobacco Use Types Packs/Day Years Used Date Smoking Tobacco: Every Day Cigarettes 0.3 43 Smokeless Tobacco: Never Comments:Started at age 18. 5 a day Alcohol Use Standard Drinks/Week Comments Yes 0 (1 standard drink = 0.6 oz pur e alcohol) Beer 4 nights/ week Comments No Sex and Gender Information Value [...] documented as of this encounter Care Teams Heating And Air Conditioning Mechanic Relationship Specialty Start Date End Date Nato Martinez MD [address] [place] [address], [address] [place] [address] [email or web address] PCP - General Internal Medicine 05/13/17 Marion Mattson MD [address] [place] [address] [address] [place] [address] [email or web address] Historical LMR Provider 02/14/17 Kelvin Acosta MD [address] [place] [address] [email or web address] Historical LMR Provider 02/14/17 Qi Velez MD [address] [place] [address] Historical LMR Provider 02/14/17 2 Papa Gillespie MD [address] [place] [address], [address] [address] [email or web address] Historical LMR Provider 02/14/17 05/04/21 Yessica Hernandes MD [address], [place] [address] [email or web address] Obstetrics and Gynecology 09/02/17 Karen Yen MD 30 [place] [address] [email or web address] Medical Oncology 09/02/17 Nato Martinez MD [address] [place] [address], [address] [place] [address] [email or web address] Insurance Assigned Provider 08/01/23 documented as of this encounter Additional Source Comments The information contained in this document represents components of the legal health record. It is not the complete legal health record.[facility]
--- OUTSIDE RECORDS SUMMARY | 2025-03-18 19:31 | XMS_ITS | Encounter Summary ---
Author Organization [facility] Address [facility] [address] [place] [address] Phone Care Team Providers Care Liner Machine Operator Helper Name Role Phone Marion Mattson MD Unavailable [phone] Kelvin Acosta MD Unavailable [phone] Nato Martinez MD Primary Care Provider Yessica Hernandes MD Unavailable Karen Yen MD Unavailable Nato Martinez MD Unavailable [phone] Encounter Details Date Type Department Care Team (Latest Contact Info) Description 11/28/2022 Transcribe Orders Virtual Department 30 [place] [address] Caro Esposito MD [address] [place] [address] MS (multiple sclerosis) (Primary Dx); Sleep disturbance; Chronic respiratory failure with hypoxia and hypercapnia Social History Tobacco Use Types Packs/Day Years [...] documented as of this encounter Results * FL (Speech) Video Swallow Study (12/12/2022 10:29 AM EDT) Anatomical Region Laterality Modality Radio Fluoroscop y 12/12/2022 11:2 1 AM EDT Impressions 12/12/2022 12:20 PM EDT No amirah aspiration was observed during this examination. Images were reviewed with the Speech Pathologist. Please refer to the clinical notes by the Speech Pathologist for detailed description of the Modified Swallow findings. Fluoroscopy time: 2 minutes 3 seconds Number of images: [id number] ATTESTATION: I, Yair Larsen as teaching physician, have reviewed the images for this case and if necessary edited the report originally created by Harshil Tapia. Narrative 12/12/2022 12:20 PM EDT MODIFIED BARIUM SWALLOW OPERATORS: Harshil Tapia SUPERVISING PHYSICIAN: Yair Larsen COMPARISON:09/06/2015 modified video esophagram HISTORY:History of multiple sclerosis. Dysphasia. FINDINGS: A preliminary lateral view of the neck reveals no significant bony abnormalities. Fluoroscopic assistance was provided for the speech pathologist during video swallow. The patient was observed in the lateral projection while being fed various media. Media Consistency with comments: Thin: Transient high epiglottic penetration on a single sip of thin barium. No aspiration. Puree/Pudding: No aspiration or penetration. No significant residue. Cracker: No aspiration or penetration. No significant residue. There was normal transfer from the oral cavity to the pharynx. The motility in the pharynx appeared normal Procedure Note Yair Larsen MD - 12/12/2022 MODIFIED BARIUM SWALLOW OPERATORS: Harshil Tapia SUPERVISING PHYSICIAN: Yair Larsen COMPARISON:09/06/2015 modified video esophagram HISTORY:History of multiple sclerosis. Dysphasia. FINDINGS: A preliminary lateral view of the neck reveals no significant bonyabnormalities. Fluoroscopic assistance was provided for the speech pathologist duringvideo swallow. The patient was observed in the lateral projection whilebeing fed various media. Media Consistency with comments: Thin: Transient high epiglottic penetration on a single sip of thinbarium. No aspiration. Puree/Pudding: No aspiration or penetration. No significant residue. Cracker: No aspiration or penetration. No significant residue. There was normal transfer from the oral cavity to the pharynx. Themotility in the pharynx appeared normal IMPRESSION: No amirah aspiration was observed during this examination. Images were reviewed with the Speech Pathologist. Please refer to theclinical notes by the Speech Pathologist for detailed description of theModified Swallow findings. Fluoroscopy time: 2 minutes 3 seconds Number of images: [id number] ATTESTATION: I, Yair Larsen as teaching physician, have reviewed theimages for this case and if necessary edited the report originally createdby Harshil Tapia. us Caro Esposito MD IMG FL EXAMS Final Result documented in this encounter Visit Diagnoses Diagnosis MS (multiple sclerosis)- Primary Multiple sclerosis Sleep disturbance Unspecified sleep disturbance Chronic respiratory failure with hypoxia and hypercapnia MS (multiple sclerosis)- Primary Multiple sclerosis Sleep disturbance Unspecified sleep disturbance Chronic respiratory failure with hypoxia and hypercapnia documented in this encounter Additional Health Concerns Infection Onset Date Last Indicated Resolved Time COVID-19 10/07/2024 10/07/2024 10/28/2024 1:21 AM EDT Assessment Noted Time PHQ-2 Depression Total Score: 0 07/31/19 10:32 AM EDT documented as of this encounter Care Teams Liner Machine Operator Helper Relationship Specialty Start Date End Date Nato Martinez MD [address] [place] [address], [address] [place] [address] PCP - General Internal Medicine 05/13/17 Marion Mattson MD [address] [facility], [address] [place] [address] Historical LMR Provider 02/14/17 Kelvin Acosta MD [address] [place] [address] [email or web address] Historical LMR Provider 02/14/17 Yessica Hernandes MD [address] [address] [email or web address] Obstetrics and Gynecology 09/02/17 Karen Yen MD 30 [place] [address] [email or web address] Medical Oncology 09/02/17 Nato Martinez MD [address] [place] [address], [address] [place] [address] Insurance Assigned Provider 08/01/23 documented as of this encounter Additional Source Comments The information contained in this document represents components of the legal health record. It is not the complete legal health record.[facility]
--- OUTSIDE RECORDS SUMMARY | 2025-03-18 19:31 | XMS_ITS | Encounter Summary ---
Author Organization [facility] Address [address] [place] [address] [place] [address] Phone Care Team Providers Care Law Firm Consultant Name Role Phone Marion Mattson MD Unavailable Kelvin Acosta MD Unavailable [phone] Nato Martinez MD Primary Care Provider [phone] Yessica Hernandes MD Unavailable Karen Yen MD Unavailable [phone] Nato Martinez MD Unavailable [phone] Encounter Details Date Type Department Care Team (Late st Contact Info) Description 09/02/2021 Ancillary Orders Non-Invasive Cardiology [address] [place] [address] Mable Sutherland MD 30 [place] [address] [email or web address] TIA (transient ischemic attack) Social History Tobacco [...] Results * DEVICE CHECK: ILR IN-HOME INTERROGATION (09/02/2021 10:01 AM EDT) Narrative Tadeo Calderón DO - 09/03/2021 2:11 PM EDT Remote interrogation of implantable loop recorder. Reason for implant: TIA Thread Winder: Posterous Symptoms: 0 Pauses: 0 Bradycardia: 0 Tachycardia: 0 AT/AF: 0 Battery status: OK Additional comments: Device functioning appropriately. Normal device function. Patient to follow-up for continued monitoring every 1 month. Report prepared by Olivia Harrison NP Mable Sutherland MD [facility] ORDER FAVIAN Final Result documented in this encounter Visit [...] documented as of this encounter Care Teams Law Firm Consultant Relationship Specialty Start Date End Date Nato Martinez MD [address] [place] [address], [address] [place] [address] PCP - General Internal Medicine 05/13/17 Marion Mattson MD [address] [place] [address], [address] [place] [address] Historical LMR Provider 02/14/17 Kelvin Acosta MD [facility] [place] [address] [email or web address] Historical LMR Provider 02/14/17 Yessica Hernandes MD [address] [place] [address] [email or web address] Obstetrics and Gynecology 09/02/17 Karen Yen MD 30 [place] [address] [email or web address] Medical Oncology 09/02/17 Nato Martinez MD [address] [place] [address], [address] [place] [address] [email or web address] Insurance Assigned Provider 08/01/23 documented as of this encounter Additional Source Comments The information contained in this document represents components of the legal health record. It is not the complete legal health record.[facility]
--- OUTSIDE RECORDS SUMMARY | 2025-03-18 19:31 | XMS_ITS | Encounter Summary ---
Author Organization [facility] Address [facility] [employer] [facility] [address] [place] [address] Phone Care Team Providers Care Baton Twirler Name Role Phone Marion Mattson MD Unavailable Kelvin Acosta MD Unavailable [phone] Qi Velez MD Unavailable [phone] Papa Gillespie MD Unavailable Nato Martinez MD Primary Care Provider [phone] Yessica Hernandes MD Unavailable Karen Yen MD Unavailable Nato Martinez MD Unavailable [phone] Encounter Details Date Type Department Care Team (Late st Contact Info) Description 10/11/2020 Procedure Pass Non-Invasive Cardiology [address] [place] [address] Social History Tobacco Use Types Packs/Day Years [...] documented as of this encounter Care Teams Baton Twirler Relationship Specialty Start Date End Date Nato Martinez MD [address] [place] [address], [address] [place] [address] PCP - General Internal Medicine 05/13/17 Marion Mattson MD [address] [place] [address], [address] [place] [address] Historical LMR Provider 02/14/17 Kelvin Acosta MD [address] [place] [address] [email or web address] Historical LMR Provider 02/14/17 Qi Velez MD [address] [place] [address] Historical LMR Provider 02/14/17 2 Papa Gillespie MD [address] [place] [address], [address] [place] [address] Historical LMR Provider 02/14/17 05/04/21 Yessica Hernandes MD [address] [place] [address] [email or web address] Obstetrics and Gynecology 09/02/17 Karen Yen MD 30 [place] [address] [email or web address] Medical Oncology 09/02/17 Nato Martinez MD [address] [facility], [address] [place] [address] [email or web address] Insurance Assigned Provider 08/01/23 documented as of this encounter Additional Source Comments The information contained in this document represents components of the legal health record. It is not the complete legal health record.[facility]
--- OUTSIDE RECORDS SUMMARY | 2025-03-18 19:31 | XMS_ITS | Encounter Summary ---
Author Organization [facility] Address [address] [place] [address] [place] [address] Phone Care Team Providers Care Textile Scrap Salvager Name Role Phone Marion Mattson MD Unavailable Kelvin Acosta MD Unavailable [phone] Qi Velez MD Unavailable Papa Gillespie MD Unavailable Nato Martinez MD Primary Care Provider Yessica Hernandes MD Unavailable Karen Yen MD Unavailable [phone] Nato Martinez MD Unavailable [phone] Encounter Details Date Type Department Care Team (Late st Contact Info) Description 01/18/2021 Transcribe Orders Virtual Department 30 [place] [address] Valentina De Los Santos MD [address] [facility] [address] [place], [place] [address] Immunity status testing (Primary Dx) Social History Tobacco Use Types [...] as of this encounter Visit Diagnoses Diagnosis Immunity status testing- Primary Antibody response examination documented in this encounter Additional Health Concerns Infection Onset Date Last Indicated Resolved Time CoV-Risk 01/18/2021 01/18/2021 01/28/2021 1:24 AM EDT COVID-19 10/07/2024 10/07/2024 10/28/2024 1:21 AM EDT Assessment Noted Time PHQ-2 Depression Total Score: 0 07/31/19 21 10:32 AM EDT documented as of this encounter Care Teams Textile Scrap Salvager Relationship Specialty Start Date End Date Nato Martinez MD [address] [place] [address], [address] [place] [address] [email or web address] PCP - General Internal Medicine 05/13/17 Marion Mattson MD [address] [place] [address], [address] [place] [address] [email or web address] Historical LMR Provider 02/14/17 Kelvin Acosta MD [address] [place] [address] [email or web address] Historical LMR Provider 02/14/17 Qi Velez MD [address] [place] [address] Historical LMR Provider 02/14/17 2 Papa Gillespie MD [address] [facility], [address] [place] [address] [email or web address] Historical LMR Provider 02/14/17 05/04/21 Yessica Hernandes MD [address] [place] [address] [email or web address] Obstetrics and Gynecology 09/02/17 Karen Yen MD 30 [place] [address] [email or web address] Medical Oncology 09/02/17 Nato Martinez MD [address] [place] [address], [address] [place] [address] [email or web address] Insurance Assigned Provider 08/01/23 documented as of this encounter Additional Source Comments The information contained in this document represents components of the legal health record. It is not the complete legal health record.[facility]
--- OUTSIDE RECORDS SUMMARY | 2025-03-18 19:31 | XMS_ITS | Encounter Summary ---
Author Organization [facility] Address [address] [place] [address] [place] [address] Phone Care Team Providers Care Electronics Specialist Name Role Phone Marion Mattson MD Unavailable Kelvin Acosta MD Unavailable [phone] Nato Martinez MD Primary Care Provider [phone] Yessica Hernandes MD Unavailable Karen Yen MD Unavailable [phone] Nato Martinez MD Unavailable [phone] Encounter Details Date Type Department Care Team (Late st Contact Info) Description 09/02/2021 Ancillary Orders Non-Invasive Cardiology [address] [place] [address] Mable Sutherland MD 30 [place] [address] [email or web address] TIA (transient ischemic attack) Social History Tobacco [...] Results * DEVICE CHECK: ILR IN-HOME INTERROGATION (12/02/2021 3:37 PM EDT) Narrative Tadeo Calderón DO - 12/03/2021 1:09 PM EDT Remote interrogation of implantable loop recorder. 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 Normal device function. Patient to follow-up for continued monitoring every 1 month. Report prepared by Beto Soares RN Procedure Note Tadeo Calderón DO - 12/03/2021 Remote interrogation of implantable loop recorder. 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 Normal device function. Patient to follow-up for continued monitoringevery 1 month. Report prepared by Beto Soares RN Mable Sutherland MD CV CARDIAC SERVICES ORDER [...] documented as of this encounter Care Teams Electronics Specialist Relationship Specialty Start Date End Date Nato Martinez MD [address] [place] [address], [address] [place] [id number] PCP - General Internal Medicine 05/13/17 Marion Mattson MD [address] [facility], [address] [place] [address] Historical LMR Provider 02/14/17 Kelvin Acosta MD [address] [place] [address] [email or web address] Historical LMR Provider 02/14/17 Yessica Hernandes MD [address], [place] [address] [email or web address] Obstetrics and Gynecology 09/02/17 Karen Yen MD [address] [place] [email or web address] Medical Oncology 09/02/17 Nato Martinez MD [address] [place] [address], [address] [place] [address] [email or web address] Insurance Assigned Provider 08/01/23 documented as of this encounter Additional Source Comments The information contained in this document represents components of the legal health record. It is not the complete legal health record.[facility]
--- OUTSIDE RECORDS SUMMARY | 2025-03-18 19:31 | XMS_ITS | Encounter Summary ---
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 Not on file Not on file documented as of this encounter Miscellaneous Notes * Telephone Encounter - Harriet Carreno LPN - 03/16/2025 9:43 AM EST She requested lab orders to be faxed documented in this encounter Plan of Treatment Upcoming Encounters Date Type Department Care Team (Late st Contact Info) Description 04/10/2025 10:00 AM EST Office Visit [facility] [address] [place] [address] Assistant Infant Toddler Teacher: Caro Hansen MD [address] [place] [address] 06/01/2025 4:40 PM EST Follow-Up [facility] [address] [place] [address] Assistant Infant Toddler Teacher: Dio James MD [address] [place] [address] 08/21/2025 10:00 AM EDT Office Visit [facility] [address] [place] [address] Assistant Infant Toddler Teacher: Caro Hansen MD [address] [place] [address] Scheduled Orders Name Type Priority Associated Diagnoses Orde r Schedule Flow Cytometry for Lymph Subset T,B,& NK Cells Lab Routine Multiple sclerosis Sjogren's syndrome with keratoconjunctivitis sicca (HCC) Neuromuscular respiratory weakness Immunoglobulin G deficiency Fatigue Expected: 03/15/2025, Expires: 03/15/2026 documented as of this encounter Visit Diagnoses Diagnosis Multiple sclerosis- Primary Sjogren's syndrome with keratoconjunctivitis sicca (HCC) Neuromuscular respiratory weakness Immunoglobulin G deficiency Fatigue documented in this encounter Care Teams Regional Coordinator Relationship Specialty Start Date End Date aNto Martinez MD [address] [place] [address], [address] [place], [place] [id number] PCP - General 11/13/16 documented as of this encounter
--- OUTSIDE RECORDS SUMMARY | 2025-03-18 19:31 | XMS_ITS | Encounter Summary ---
Author Organization [facility] Address [facility] Access Information Management [facility] [address] [place] [address] Phone Care Team Providers Care Set Off Blocker Name Role Phone Marion Mattson MD Unavailable Kelvin Acosta MD Unavailable [phone] Nato Martinez MD Primary Care Provider [phone] Yessica Hernandes MD Unavailable [phone] Karen Yen MD Unavailable [phone] Nato Martinez MD Unavailable [phone] Reason for Visit * Reason Comments Medication Refill Encounter Details Date Type Department Care Team (Late st Contact Info) Description 03/13/2025 Refill [facility] [address] [place] [address] Nato Martinez MD [address] [facility], [address] [place] [address] [email or web address] Medication Refill Social History Tobacco Use Types Packs/Day Years [...] on file documented as of this encounter Progress Notes * Shayy Prince MA - 03/13/2025 11:42 AM EST Rx Care Gap Status - Instructions for Clinical Staff (prescriber discretion applies): > Mismatch review guide > No future appt: Please schedule if appropriate. Visit Info Last visit: 08/08/2024 Nato Martinez MD - Family Medicine [facility] > Requested f/u: Not specified Upcoming visit: None ACTIONS TAKEN BY Shayy Prince MA - Visit needed - Scheduled; sent msg to FD; and/or reminded pt. - Updated rx duration per protocol. CCB (vasodilators) Rx Protocol (on HTN Registry) - amlodipine besylate Criteria not met; renew for up to 3 months. Visit in the past 14 months: Yes Clinical criteria: - BP within last 6 months: No (136/75 on 08/08/2024 ) documented in this encounter Plan of Treatment Not on file documented as of this encounter Visit Diagnoses Diagnosis Hypertensive disorder Unspecified essential hypertension documented in this encounter Additional Health Concerns Assessment Noted Time PHQ-2 Depression Total Score: 0 01/24/20 23 10:33 AM EDT documented as of this encounter Care Teams Set Off Blocker Relationship Specialty Start Date End Date Nato Martinez MD [address] [place] [address], [address] [place] [address] [email or web address] PCP - General Internal Medicine 05/13/17 Marion Mattson MD [address] [place] [address], [address] [place] [address] [email or web address] Historical LMR Provider 02/14/17 Kelvin Acosta MD [address] [place] [address] [email or web address] Historical LMR Provider 02/14/17 Yessica Hernandes MD [address] [address] [email or web address] Obstetrics and Gynecology 09/02/17 Karen Yen MD [address] [place] [address] [email or web address] Medical Oncology 09/02/17 Nato Martinez MD [address] [place] [address], [address] [place] [address] [email or web address] Insurance Assigned Provider 08/01/23 documented as of this encounter Additional Source Comments The information contained in this document represents components of the legal health record. It is not the complete legal health record.[facility]
--- OUTSIDE RECORDS SUMMARY | 2025-03-18 19:31 | XMS_ITS | Encounter Summary ---
Author Organization [facility] Address [address] [place] [address] [place] [address] Phone Care Team Providers Care Classification Case Manager Name Role Phone Marion Mattson MD Unavailable Kelvin Acosta MD Unavailable [phone] Qi Velez MD Unavailable Papa Gillespie MD Unavailable Nato Martinez MD Primary Care Provider Yessica Hernandes MD Unavailable Karen Yen MD Unavailable Nato Martinez MD Unavailable [phone] Encounter Details Date Type Department Care Team (Late st Contact Info) Description 06/28/2020 Ancillary Orders Non-Invasive Cardiology [address] [place] [address] Mable Sutherland MD [address] [place] [address] [email or web address] TIA (transient ischemic attack) Social History Tobacco [...] documented as of this encounter Care Teams Classification Case Manager Relationship Specialty Start Date End Date Nato Martinez MD [address] [place] [address], [address] [place] [address] [email or web address] PCP - General Internal Medicine 05/13/17 Marion Mattson MD [address] [place] [address] [address] [place] [address] [email or web address] Historical LMR Provider 02/14/17 Kelvin Acosta MD [address] [place] [address] [email or web address] Historical LMR Provider 02/14/17 Qi Velez MD [address] [place] [address] Historical LMR Provider 02/14/17 2 Papa Gillespie MD [address] [place] [address], [address] [address] [email or web address] Historical LMR Provider 02/14/17 05/04/21 Yessica Hernandes MD [address] [place] [address] [email or web address] Obstetrics and Gynecology 09/02/17 Karen Yen MD [address] [place] [address] [email or web address] Medical Oncology 09/02/17 Nato Martinez MD [address] [place] [address], [address] [place] [address] [email or web address] Insurance Assigned Provider 08/01/23 documented as of this encounter Additional Source Comments The information contained in this document represents components of the legal health record. It is not the complete legal health record.[facility]
--- OUTSIDE RECORDS SUMMARY | 2025-03-18 19:31 | XMS_ITS | Encounter Summary ---
Author Organization [facility] Address [address] [place] [address] [place] [address] Phone Care Team Providers Care Sleeve Wheel Maker Name Role Phone Marion Mattson MD Unavailable Kelvin Acosta MD Unavailable [phone] Qi Velez MD Unavailable [phone] Papa Gillespie MD Unavailable Nato Martinez MD Primary Care Provider Yessica Hernandes MD Unavailable Karen Yen MD Unavailable Nato Martinez MD Unavailable Encounter Details Date Type Department Care Team (Late st Contact Info) Description 02/04/2021 Ancillary Orders Non-Invasive Cardiology [address] [place] [address] Mable Sutherland MD [address] [place] [address] [email or web address] TIA (transient ischemic attack) Social History Tobacco [...] Results * DEVICE CHECK: ILR IN-HOME INTERROGATION (02/04/2021 9:59 AM EDT) Narrative Mable Sutherland MD - 02/10/2021 3:17 PM EDT Remote interrogation of implantable loop recorder. 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, [address] [place] [address] [email or web address] PCP - General Internal Medicine 05/13/17 Marion Mattson MD [address] [place] [address], [address] [place] [address] Historical LMR Provider 02/14/17 Kelvin Acosta MD [address] [place] [address] [email or web address] Historical LMR Provider 02/14/17 Qi Velez MD [address] [place] [address] Historical LMR Provider 02/14/17 2 Papa Gillespie MD [address] [place] [address], [address] [place] [address] Historical LMR Provider 02/14/17 05/04/21 Yessica Hernandes MD [address] [place] [address] [email or web address] Obstetrics and Gynecology 09/02/17 Karen Yen MD [address] [place] [address] [email or web address] Medical Oncology 09/02/17 Nato Martinez MD [address] [place] [address], [address] [place] [address] Insurance Assigned Provider 08/01/23 documented as of this encounter Additional Source Comments The information contained in this document represents components of the legal health record. It is not the complete legal health record.[facility]
--- OUTSIDE RECORDS SUMMARY | 2025-03-18 19:31 | XMS_ITS | Encounter Summary ---
Author Organization [facility] Address [facility] [employer] [facility] [address] [place] [address] Phone Care Team Providers Care Manager Unix Name Role Phone Marion Mattson MD Unavailable Kelvni Acosta MD Unavailable [phone] Nato Martinez MD Primary Care Provider [phone] Yessica Hernandes MD Unavailable Karen Yen MD Unavailable [phone] Nato Martinez MD Unavailable [phone] Encounter Details Date Type Department Care Team (Late st Contact Info) Description 09/02/2021 Ancillary [facility] [address] [facility] 3rd Floor, [address] [place] [address] Mable Sutherland MD [address] [place] [phone] [email or web address] Social History Tobacco Use Types Packs/Day Years [...] documented as of this encounter Care Teams Manager Unix Relationship Specialty Start Date End Date Nato Martinez MD [address] [place] [address], [address] [place] [address] [email or web address] PCP - General Internal Medicine 05/13/17 Marion Mattson MD [address] [place] [address], [address] [place] [address] [email or web address] Historical LMR Provider 02/14/17 Kelvin Acosta MD [address] [place] [address] [email or web address] Historical LMR Provider 02/14/17 Yessica Hernandes MD [address] [place] [address] [email or web address] Obstetrics and Gynecology 09/02/17 Karen Yen MD [address] [place] [address] [email or web address] Medical Oncology 09/02/17 Nato Martinez MD [address] [place] [address], [address] [place] [address] [email or web address] Insurance Assigned Provider 08/01/23 documented as of this encounter Additional Source Comments The information contained in this document represents components of the legal health record. It is not the complete legal health record.[facility]
--- OUTSIDE RECORDS SUMMARY | 2025-03-18 19:31 | XMS_ITS | Clinical Summary ---
Author Organization [facility] Address [address] [place] [address] Care Team Providers Care Videotape Sales Representative Name Role Phone Nato Martinez MD Primary Care Provider [phone] Allergies Active Allergy Reactions Criticality Noted Date Comments Amoxicillin-Pot Clavulanate Heartburn 05/14/19 18 Aggravates GERD Clindamycin Diarrhea 11/04/2011 Glatiramer (Copolymer 1) Unknown,Hives 11/04/19 12 Glatiramer Hives,Rash 05/14/2017 Hydroxychloroquine Unknown 09/09/2019 Retinal toxicity Levofloxacin Gait abnormalities,Makayla nt pain,Other (see comments) 05/05/2017 tendinitis Oxycodone Itching 05/14/2017 Prednisone Unknown 05/02/2020 Sulfamethoxazole-Trimethopr im Anaphylaxis,Hives High 05/14/2017 Vancomycin Hives High Vancomycin Analogues Hives 11/04/2011 Varenicline Other (see comments) 04/29/2019 Vivid dreams and nightmares Medications amLODIPine (NORVASC) 2.5 mg tablet Take 5 mg by mouth 2 (two) times a day. per patient 11/30/19 14 Active IMMUN GLOB G,IGG,/PRO/IGA 0-50 (HIZENTRA SUBCUTANEO) 12 g infusion 1 x every other week per patient Active polyethylene glycol 3350 (MIRALAX) 17 gram packet MiraLax Oral Packet 2-4 tbsp x day Refills: 0 Active Active vitamin B complex capsule Vitamin B Complex CAPS Refills: 0 Active Active esomeprazole (NexIUM) 40 mg capsule 20 mg. 09/08/19 18 Active hyoscyamine sulfate 0.125 mg tablet,disintegratingIn dications:Multiple sclerosis Dissolve 0.125 mg in the mouth daily. 180 each 2 02/10/20 19 Active cloNIDine (CATAPRES) 0.1 mg tablet Take 0.3 mg by mouth every 12 hours. 12/16/19 20 Active albuterol (ProAir HFA) 90 mcg inhaler Inhale 2 puffs (180 mcg total) by mouth every 4 hours as needed for wheezing or shortness of breath. Use with spacer. 8.5 g 3 12/30/19 20 Active metoprolol succinate XL (TOPROL XL) 50 mg tablet Take 50 mg by mouth once a day. Per pt 03/05/20 20 Active aspirin chewable tablet 81 mg CHEW AND SWALLOW ONE TABLET BY MOUTH EVERY DAY 05/03/19 Active atorvastatin (LIPITOR) 80 mg tablet Take 40 mg by mouth daily. 05/03/19 21 Active isosorbide mononitrate ER (IMDUR) 30 mg tablet Take 30 mg by mouth daily. 10/06/19 21 Active ofatumumab 20 mg/0.4 mL pen injectorIndications:Mul tiple sclerosis,Sjogren's syndrome with keratoconjunctivitis sicca (HCC),Immunoglobulin G deficiency Inject 0.4 mL (20 mg total) under the skin every 28 days. 1.2 mL 3 03/28/20 24 Active cloNIDine (CATAPRES) 0.2 mg tablet Take 0.2 mg by mouth once a day. Active primidone (MYSOLINE) 50 mg tabletIndications:Multi ple sclerosis,Neuromuscular respiratory weakness,Sleep disturbance,Immunoglobu latrell G deficiency,Essential tremor TAKE 1 TABLET BY MOUTH NIGHTLY. 30 tablet 11 09/07/19 25 Active modafiniL (PROVIGIL) 100 mg tablet TAKE ONE TABLET BY MOUTH EVERY DAY 30 tablet 5 09/27/19 25 Active minoxidiL (LONITEN) 2.5 mg tablet 12/09/19 25 Active metroNIDAZOLE (METROCREAM) 0.75 % cream SMARTSIG:spa ringly Topical Twice Daily 11/18/19 25 Active fluocinonide (LIDEX) 0.05% ointment APPLY TO THE AFFECTED AREAS ON THE LEGS TWICE DAILY FOR 2 WEEKS, BREAK ONE WEEK, AND REPEAT NEEDED. 11/18/19 25 Active baclofen (LIORESAL) 20 mg tabletIndications:Muscl e spasticity Take 1.5 tablets (30 mg total) by mouth 2 times a day. 270 tablet 3 12/28/19 25 Active Active Problems Problem Noted Date Diagnosed Date [...] pts to for testing is located in [place] and given where she lives and her driving/transportation related limitations this would not be an option for her. I've recommended that she consult with Dr. Lolly English or Liliane Garibay at [facility] to have in lab testing there [...] PFTS sitting and supine with MIPS/MEPS at [facility]. Assessment & Plan (10/30/2020 11:30 PM [...] Worked with her re: mask fit/adjustment; called DME company to see what steps are required to get updated supplies when needed. Had her try the settings and she found them comfortable. Plan to start to use tonight. Showed her how to monitor use and effectiveness. Will ask DME to tag me on her device so I can check data real time and remotely. Atherosclerosis of coronary artery of [place] heart with stable angina pectoris 10/05/2020 Overview [...] after lip biopsy 20 yrs ago at [facility]. Repeat Ab test March 2020 negative. Mild [...] Dr. Barrios; PSG/MSLT off baclofen, 02/10/2020 at [facility], AHI 1, 88%, TcCO2 increased from [...] recommended a facility based BiPAP titration at [facility] with TCCO2 monitoring, requested [facility]. 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 Plaquenil dc'd after Ophtho exam revealed possible retinal toxicity. 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 02/17/2015 Systemic lupus erythematosus 02/17/2015 Cognitive disorder 12/12/2014 Abnormal gait 12/12/2014 Pelvic pain 10/31/2013 Bowel incontinence 10/31/2013 Urinary tract infection 10/31/2013 Osteoarthritis of hand 10/12/2013 Inflammatory arthritis 10/12/2013 Multiple sclerosis 09/15/2013 Ataxia 11/04/2011 Overview (10/30/2020): Ataxia Breast cancer 11/04/2011 Overview (10/30/2020): Malignant tumor of breast Resolved Problems Problem Noted Date Diagnosed Date Resolved Date Elevated antibody levels 10/12/2013 Encounters Date Type Department Care Team Description 03/15/2025 Telephone [facility] [address] [place] [address] Mounted Police Officer: Caro Hansen MD 03/07/2025 myChart Message [facility] Financial Clearance Department [address] [place] [address] Hellen Atkins modafiniL (PROVIGIL) 100 mg tablet 03/06/2025 Orders Only [facility] [address] [place] [address] Mounted Police Officer: Sania Vitale MD 03/06/2025 Telephone [facility] [address] [place] [address] Mounted Police Officer: Sobia Foster MA 02/10/2025 Orders Only [facility] [address] [place] [address] Mounted Police Officer: Caro Hansen MD Multiple sclerosis (Primary Dx); Sjogren's syndrome with keratoconjunctivitis sicca (HCC); Other post infection and related fatigue syndromes 02/10/2025 Telephone [facility] [address] [place] [address] Mounted Police Officer: Mimi Pena LPN 01/27/2025 Orders Only [facility] [address] [place] [address] Mounted Police Officer: Caro Hansen MD 12/27/2024 Refill [facility] [address] [place] [address] Mounted Police Officer: Sobia Foster MA Muscle spasticity 12/16/2024 Telephone [facility] [address] [place] [address] Mounted Police Officer: Emily Vo LPN from Last 3 Months Family History Medical History Relation Name Comments Hypertension Brother 1 Immunodeficiency Brother 1 No Known Problems Brother 2 Hypertension Father Stroke Father Atrial fibrillation Mother Coronary artery disease Mother Hypertension Mother Stroke Mother Breast cancer Sister Allergic rhinitis Son 1 Asthma Son 1 Inflammatory bowel disease Son 1 Arrhythmia Son 2 Relation Name Status Comments Brother 1 Alive Brother 2 Alive Father Mother Sister Alive Son 1 Alive Son 2 Alive Social History Tobacco Use Types Packs/Day Years Used Date Smoking Tobacco: Every Day Cigarettes Passive Smoke Exposure: Past Smokeless Tobacco: Never Tobacco Cessation:Ready to Q uit: Not Asked; Counseling Given: Not Answered Comments:: Alcohol Use Standard Drinks/Week Comments Yes 5 (1 standard drink = 0.6 oz pur e alcohol) Comments Unknown Sex and Gender Information Value Date Recorded Sex Assigned at Female 04/02/2020 12:30 PM EST Legal Sex Female 10:11 AM EDT Gender Identity Female 09/16/2017 4:15 PM EDT Sexual Orientation Straight 04/02/2020 12 :30 PM EST 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 file Not on file Not on file Last Filed Vital Signs Vital Sign Reading Time Taken Comments Blood Pressure 128/60 12/12/2024 10:08 AM EDT Pulse 56 12/12/2024 10:08 AM EDT Temperature 36.9 C (98.4 F) 09/29/2024 10:36 AM EDT Respiratory Rate 16 03/06/2023 2:25 PM EST Oxygen Saturation 99% 12/12/2024 10:08 AM EDT Inhaled Oxygen Concentration - - Weight 61.2 kg (135 lb) 09/29/2024 10:36 AM EDT Height 167.6 cm (5' 6 ) 09/29/2024 10:36 AM EDT Body Mass Index 21.79 09/29/2024 10:36 AM EDT Plan of Treatment Upcoming Encounters Date Type Department Care Team (Late st Contact Info) Description 04/10/2025 10:00 AM EST Office Visit [facility] [address] [place] [address] Mounted Police Officer: Caro Hansen MD [address] [place] [address] 06/01/2025 4:40 PM EST Follow-Up [facility] [address] [place] [address] Mounted Police Officer: Dio James MD [address] [place] [address] 08/21/2025 10:00 AM EDT Office Visit [facility] [address] [place] [address] Mounted Police Officer: Caro Hansen MD [address] [place] [address] Health Maintenance Due Date Last Done Comments eJb 1957 FOBT / Fit Test 1957 Sigmoidoscopy 1957 Medicare AWV 1958 DTaP,Tdap,and Td Vaccines (1 - Tdap) 1979 CT Lung Cancer Screening (Baseline) 2007 Osteoporosis Screening 2007 Alcohol/Substance Use Screening 04/27/2024 Depression Screening and Follow-Up 04/27/2024 Health Care Proxy Review 04/27/2024 Social Drivers of Health Annual Screening 04/27/2024 Zoster Vaccines (2 of 2) 11/18/2024 09/23/2024 Influenza Vaccine (#1) 2024 , 02/21/2023, 02/03/2022, Additional history exists COVID-19 Vaccine ( season) 2024 07/26/2024, 12/26/2023, 01/30/2023, Additional history exists Basic Metabolic Panel 07/22/2025 07/22/2024 , 07/14/2024, 04/15/2024, Additional history exists Fall Risk Screening 09/29/2025 09/29/2024 Colon Cancer Screening 03/10/2028 Colonoscopy 03/10/2028 03/10/2018 Mammogram Discontinued 02/06/2022, 01/25, 02/06/2022, Additional history exists Pneumococcal Vaccine: 50+ Years Completed 12/09/2022 RSV Vaccine (60+ years old and patients) Completed 03/13/2024 Hepatitis C Screening Completed 08/02/2024 , 07/14/2024, 12/12/2014 Hepatitis B Vaccines Aged Out No long er eligible based on patient's age to complete this topic Procedures * Due to [place] state law, this organization might not be sharing negative HIV tests. Procedure Name Priority Date/Time Associated Diagnosis Comments LAB - SCANNED Routine 03/06/2025 3:46 PM EST LAB - SCANNED Routine 03/06/2025 3:45 PM EST AMB EXTERNAL EMG, OUTSIDE RESULT Routine 01/27/2025 1:06 PM EDT HEPATITIS PANEL, ACUTE Routine 11:57 AM EDT Multiple sclerosis COMPREHENSIVE METABOLIC PANEL, OUTSIDE LAB Routine 07/22/2024 12:53 PM EDT from Last 3 Months or Most Recently Relevant to Health Maintenance Results * Due to [place] state law, this organization might not be sharing negative HIV tests. * LAB - SCANNED (03/06/2025 3:46 PM EST) Only the most recent of2 resultswithin the time period is included. us [facility] Provider LAB HISTORICAL RESULTS Final Result * Electromyography, Outside Result (01/27/2025 1:06 PM EDT) Caro Esposito MD AMB EXTERNAL RESULT PROCEDURE S Final Result * Hepatitis Panel, Acute (08/02/2024 11:57 AM EDT) Hepatitis A IgM NON-REACT LEONEL NON-REACT LEONEL 08/03/2024 12:06 AM EDT [facility] Hepatitis B Surface Antigen NON-REACT LEONEL NON-REACT LEONEL 08/03/2024 12:06 AM EDT [facility] Hepatitis B Core Antibody NON-REACT LEONEL NON-REACT LEONEL 08/03/2024 12:06 AM EDT [facility] Hepatitis C Antibody NON-REACT LEONEL NON-REACT LEONEL 08/03/2024 12:06 AM EDT [facility] Comment: HCV antibody was non-reactive. There is no laboratory evidence of HCV infection. In most cases, no further action is required. However, if recent HCV exposure is suspected, a test for HCV RNA (test code 35325) is suggested. For additional information please refer to http://education.Popbasic.GLSS/faq/RCK47o6 (This link is being provided for informational/ educational purposes only.) For additional information, please refer to http://education.Popbasic.GLSS/faq/JJM048 (This link is being provided for informational/ educational purposes only.) Blood Structure of peripheral vein / Unknown Venipuncture / Unknown 08/02/2024 11:57 AM EDT 08/02/2024 12:02 PM EDT Narrative [facility] - 08/03/2024 12:06 AM EDT [facility] Received Date:[id number] Caro Esposito MD LAB BLOOD ORDERABLES Final Re sult ASHANTI CARBAJAL [address] [facility] 3rd Floor, [place] [address], [place] [phone] [facility] [address] [facility] 3rd Floor, [place] [address], [place] [phone] * Comprehensive Metabolic Panel, Outside Lab (07/22/2024 12:53 PM EDT) Blood Structure of peripheral vein / Unknown Unknown Provider LAB BLOOD ORDERABLES Final R esult from Last 3 Months or Most Recently Relevant to Health Maintenance Insurance [employer]ERAL MEDICARE Care Teams Videotape Sales Representative Relationship Specialty Start Date End Date Nato Martinez MD [address] [place] [address], [address] [place] [address] PCP - General 11/13/16
--- OUTSIDE RECORDS SUMMARY | 2025-03-18 19:31 | XMS_ITS | Encounter Summary ---
Author Organization [facility] Address [address] [place] [address] [address] [place] [address] Phone Care Team Providers Care Head Of Mobile Name Role Phone Marion Mattson MD Unavailable Kelvin Acosta MD Unavailable [phone] Nato Martinez MD Primary Care Provider [phone] Yessica Hernandes MD Unavailable Karen Yen MD Unavailable Nato Martinez MD Unavailable [phone] Encounter Details Date Type Department Care Team (Late st Contact Info) Description 08/07/2023 Procedure Pass [facility]ventional [facility] [address] [place] [address] Social History Tobacco Use Types Packs/Day Years [...] documented as of this encounter Care Teams Head Of Mobile Relationship Specialty Start Date End Date Nato Martinez MD [address] [place] [address], [address] [place] [address] [email or web address] PCP - General Internal Medicine 05/13/17 Marion Mattson MD [address] [place] [address], [address] [place] [address] [email or web address] Historical LMR Provider 02/14/17 Kelvin Acosta MD [address] [place] [address] [email or web address] Historical LMR Provider 02/14/17 Yessica Hernandes MD [facility] [place] [address] [email or web address] Obstetrics and Gynecology 09/02/17 Karen Yen MD [address] [place] [address] [email or web address] Medical Oncology 09/02/17 Nato Martinez MD [address] [place] [address], [address] [place] [address] [email or web address] Insurance Assigned Provider 08/01/23 documented as of this encounter Additional Source Comments The information contained in this document represents components of the legal health record. It is not the complete legal health record.[facility]
--- OUTSIDE RECORDS SUMMARY | 2025-03-18 19:31 | XMS_ITS | Encounter Summary ---
Author Organization [facility] Address Critical access hospital [employer] [facility] [address] [place] [address] Phone Care Team Providers Care Glass Technician/Installer Name Role Phone Marion Mattson MD Unavailable [phone] Kelvin Acosta MD Unavailable [phone] Qi Velez MD Unavailable [phone] Papa Gillespie MD Unavailable [phone] Nato Martinez MD Primary Care Provider Yessica Hernandes MD Unavailable Karen Yen MD Unavailable Nato Martinez MD Unavailable [phone] Encounter Details Date Type Department Care Team (Late st Contact Info) Description 05/03/2020 Procedure Pass [facility] Echo Lab [address] [place] [address] Social History Tobacco Use Types Packs/Day Years [...] documented as of this encounter Care Teams Glass Technician/Installer Relationship Specialty Start Date End Date Nato Martinez MD [address] [place] [address], [address] [place] [address] PCP - General Internal Medicine 05/13/17 Marion Mattson MD [address] [place] [address] [email or web address] Historical LMR Provider 02/14/17 Kelvin Acosta MD [address] [place] [address] [email or web address] Historical LMR Provider 02/14/17 Qi Velez MD [address] [place] [address] Historical LMR Provider 02/14/17 2 Papa Gillespie MD [address] [place] [address] [email or web address] Historical LMR Provider 02/14/17 05/04/21 Yessica Hernandes MD [address] [place] [address] [email or web address] Obstetrics and Gynecology 09/02/17 Karen Yen MD [address] [place] [address] Medical Oncology 09/02/17 Nato Martinez MD [address] [place] [address], [address] [place] [address] [email or web address] Insurance Assigned Provider 08/01/23 documented as of this encounter Additional Source Comments The information contained in this document represents components of the legal health record. It is not the complete legal health record.[facility]
--- OUTSIDE RECORDS SUMMARY | 2025-03-18 19:31 | XMS_ITS | Encounter Summary ---
Author Organization [facility] Address [address] [place] [address] [address] [place] [address] Phone Care Team Providers Care Messenger Copy Name Role Phone Marion Mattson MD Unavailable Kelvin Acosta MD Unavailable [phone] Nato Martinez MD Primary Care Provider Yessica Hernandes MD Unavailable Karen Yen MD Unavailable [phone] Nato Martinez MD Unavailable [phone] Encounter Details Date Type Department Care Team (Late st Contact Info) Description 03/17/2024 Procedure Pass [facility], Ct Scan - [address] [address] Social History Tobacco Use Types Packs/Day Years [...] as food, clothing, or medical care? No 01/25/2024 In the past 12 months have y ou been in a relationship with a person who hurts, threatens, or tries to control you? No 01/25/2024 Are you denied basic needs s uch as food, clothing, or medical care? No 01/25/2024 In the past 12 months have y ou been in a relationship with a person who hurts, threatens, or tries to control you? No 01/25/2024 Comments No Sex and Gender Information Value [...] documented as of this encounter Care Teams Messenger Copy Relationship Specialty Start Date End Date Nato Martinez MD [address] [facility], [address] [place] [address] PCP - General Internal Medicine 05/13/17 Marion Mattson MD [address] [place] [address], [address] [place] [address] Historical LMR Provider 02/14/17 Kelvin Acosta MD [address] [place] [address] [email or web address] Historical LMR Provider 02/14/17 Yessica Hernandes MD [address] [address] [email or web address] Obstetrics and Gynecology 09/02/17 Karen Yen MD [address] [place] [address] [email or web address] Medical Oncology 09/02/17 Nato Martinez MD [address] [place] [address] [address] [place] [address] [email or web address] Insurance Assigned Provider 08/01/23 documented as of this encounter Additional Source Comments The information contained in this document represents components of the legal health record. It is not the complete legal health record.[facility]
--- OUTSIDE RECORDS SUMMARY | 2025-03-18 19:31 | XMS_ITS | Encounter Summary ---
Author Organization [facility] Address [address] [place] [address] Care Team Providers Care Ui Software Developer Name Role Phone MichelleNato Primary Care Provider [phone] Encounter Details Date Type Department Care Team (Late st Contact Info) Description 08/21/2017 Orders Only [facility] Orthopedic Surgery [address] [place] [address] [address] [place] [address] Dalton Marcos MD Social History Tobacco Use Types Packs/Day Years Used Date Smoking Tobacco: Never Assessed Comments Unknown Sex and Gender Information Value Date Recorded Sex Assigned at Not on file Legal Sex Female 12:18 PM EDT Gender Identity Not on file Sexual Orientation Not on file documented as of this encounter Plan of Treatment Scheduled Orders Name Type Priority Associated Diagnoses Orde r Schedule XRAY SHOULDER COMPLETE MIN 2 VWS- RIGHT (DX: SHOULDER PAIN *NO INJURY* M25.511/ 719.41) (TODAY) FC Imaging Routine Pain Expected: 08/21/2017 (Approximate), Expires: 08/21/2018 documented as of this encounter Visit Diagnoses Diagnosis Pain- Primary Generalized pain documented in this encounter Care Teams Ui Software Developer Relationship Specialty Start Date End Date MichelleNato [address] [place] [address] PCP - General Internal Medicine 07/22/17 documented as of this encounter
--- OUTSIDE RECORDS SUMMARY | 2025-03-18 19:31 | XMS_ITS | Encounter Summary ---
Author Organization [facility] Address [facility] [employer] [facility] [address] [place] [address] Phone Care Team Providers Care Senior Hr Manager Name Role Phone Marion Mattson MD Unavailable Kelvin Acosta MD Unavailable [phone] Qi Velez MD Unavailable [phone] Papa Gillespie MD Unavailable Nato Martinez MD Primary Care Provider Yessica Hernandes MD Unavailable Karen Yen MD Unavailable Nato Martinez MD Unavailable [phone] Encounter Details Date Type Department Care Team (Late st Contact Info) Description 11/23/2017 Procedure Pass [facility], Ct Scan - [address] [address] Social History Tobacco Use Types Packs/Day Years Used Date Smoking Tobacco: Every Day Cigarettes 0.3 43 Smokeless Tobacco: Never Comments:Started at age 18 Alcohol Use Standard Drinks/Week Comments Yes 1 (1 standard drink = 0.6 oz pur [...] documented as of this encounter Care Teams Senior Hr Manager Relationship Specialty Start Date End Date Nato Martinez MD [address] [place] [address], [address] [place] [address] PCP - General Internal Medicine 05/13/17 Marion Mattson MD [address] [place] [address], [facility] [address] [place] [address] Historical LMR Provider 02/14/17 Kelvin Acosta MD [address] [place] [address] [email or web address] Historical LMR Provider 02/14/17 Qi Velez MD [address] [place] [address] Historical LMR Provider 02/14/17 2 Papa Gillespie MD [address] [place] [address], [address] [address] Historical LMR Provider 02/14/17 05/04/21 Yessica Hernandes MD [address] [place] [address] [email or web address] Obstetrics and Gynecology 09/02/17 Karen Yen MD [address] [place] [address] Medical Oncology 09/02/17 Nato Martinez MD [address] [place] [address], [address] [place] [address] [email or web address] Insurance Assigned Provider 08/01/23 documented as of this encounter Additional Source Comments The information contained in this document represents components of the legal health record. It is not the complete legal health record.[facility]
--- OUTSIDE RECORDS SUMMARY | 2025-03-18 19:31 | XMS_ITS | Encounter Summary ---
Author Organization [facility] Address [facility] [facility] [address] [place] [address] Phone Care Team Providers Care Band Master Name Role Phone Marion Mattson MD Unavailable Kelvin Acosta MD Unavailable [phone] Nato Martinez MD Primary Care Provider [phone] Yessica Hernandes MD Unavailable Karen Yen MD Unavailable Nato Martinez MD Unavailable [phone] Encounter Details Date Type Department Care Team (Late st Contact Info) Description 09/02/2021 Ancillary [facility] [address] [facility] 3rd Floor, [address] [place] [address] Mable Sutherland MD [address] [place] [id number] [email or web address] Social History Tobacco Use Types Packs/Day Years [...] documented as of this encounter Care Teams Band Master Relationship Specialty Start Date End Date Nato Martinez MD [address] [place] [address], [address] [place] [address] [email or web address] PCP - General Internal Medicine 05/13/17 Marion Mattson MD [address] [place] [address], [address] [place] [address] [email or web address] Historical LMR Provider 02/14/17 Kelvin Acosta MD [address] [place] [address] [email or web address] Historical LMR Provider 02/14/17 Yessica Hernandes MD [address] [place] [address] [email or web address] Obstetrics and Gynecology 09/02/17 Karen Yen MD [address] [place] [address] [email or web address] Medical Oncology 09/02/17 Nato Martinez MD [address] [place] [address], [address] [place] [address] [email or web address] Insurance Assigned Provider 08/01/23 documented as of this encounter Additional Source Comments The information contained in this document represents components of the legal health record. It is not the complete legal health record.[facility]
--- OUTSIDE RECORDS SUMMARY | 2025-03-18 19:31 | XMS_ITS | Encounter Summary ---
Author Organization [facility] Address [address] [place] [address] [place] [address] Phone Care Team Providers Care Chief Executive Or Managing Director Name Role Phone Marion Mattson MD Unavailable [phone] Kelvin Acosta MD Unavailable [phone] Qi Velez MD Unavailable [phone] Papa Gillespie MD Unavailable Nato Martinez MD Primary Care Provider [phone] Yessica Hernandes MD Unavailable Karen Yen MD Unavailable Nato Martinez MD Unavailable [phone] Encounter Details Date Type Department Care Team (Late st Contact Info) Description 11/20/2017 Transcribe Orders [facility] [place] [address] [place] [address] Valentina De Los Santos MD [address] [facility] [address] [place], [place] [id number] Hypogammaglobulinemia (Primary Dx) Social History Tobacco Use Types [...] documented as of this encounter Results * (ABNORMAL) Immunoglobulins IgG, IgA, IgM (05/05/2018 12:43 PM EST) IMMUNOGLOBULIN G 945 700 - 1,600 mg/dL [facility] IgA 123 70 - 400 mg/dL [facility] IMMUNOGLOBULIN M 17(L) 40 - 230 mg/dL [facility] Blood 05/05/2018 12:4 3 PM EST 05/05/2018 12:45 PM EST us Valentina De Los Santos MD LAB BLOOD BKR ORDERABLES F inal Result Performing Organization Address City/[facility]/ZIP Co de Phone Number [address] [address] * (ABNORMAL) Immunoglobulins IgG, IgA, IgM (11/20/2017 11:34 AM EDT) IMMUNOGLOBULIN G 885 700 - 1,600 mg/dL [facility] IgA 109 70 - 400 mg/dL [facility] IMMUNOGLOBULIN M 16(L) 40 - 230 mg/dL [facility] Blood 11/20/2017 11:3 4 AM EDT 11/20/2017 11:36 AM EDT us Valentina De Los Santos MD LAB BLOOD BKR ORDERABLES F inal Result Performing Organization Address City/[facility]/ZIP Co de Phone Number [address] [address] documented in this encounter Visit Diagnoses Diagnosis Hypogammaglobulinemia- Primary Unspecified hypogammaglobulinemia documented in this encounter Additional Health Concerns Infection Onset Date Last Indicated Resolved Time CoV-Risk 01/18/2021 01/18/2021 01/28/2021 1:24 AM EDT COVID-19 10/07/2024 10/07/2024 10/28/2024 1:21 AM EDT documented as of this encounter Care Teams Chief Executive Or Managing Director Relationship Specialty Start Date End Date Nato Martinez MD [address] [facility], [address] [place] [address] PCP - General Internal Medicine 05/13/17 Marion Mattson MD [address] [facility], [address] [place] [address] Historical LMR Provider 02/14/17 Kelvin Acosta MD [address] [place] [address] [email or web address] Historical LMR Provider 02/14/17 Qi Velez MD [address] [place] [address] Historical LMR Provider 02/14/17 2 Papa Gillespie MD [address] [place] [address], [facility] [address] [place] [address] [email or web address] Historical LMR Provider 02/14/17 05/04/21 Yessica Hernandes MD [address] [place] [address] [email or web address] Obstetrics and Gynecology 09/02/17 Karen Yen MD [address] [place] [address] [email or web address] Medical Oncology 09/02/17 Nato Martinez MD [address] [place] [address], [address] [place] [address] [email or web address] Insurance Assigned Provider 08/01/23 documented as of this encounter Additional Source Comments The information contained in this document represents components of the legal health record. It is not the complete legal health record.[facility]
--- OUTSIDE RECORDS SUMMARY | 2025-03-18 19:31 | XMS_ITS | Encounter Summary ---
Author Organization [facility] Address [address] [place] [address] [place] [address] Phone Care Team Providers Care Circuit Court Judge Name Role Phone Marion Mattson MD Unavailable Kelvin Acosta MD Unavailable [phone] Nato Martinez MD Primary Care Provider Yessica Hernandes MD Unavailable Karen Yen MD Unavailable [phone] Nato Martinez MD Unavailable [phone] Encounter Details Date Type Department Care Team (Late st Contact Info) Description 09/02/2021 Procedure Pass Non-Invasive Cardiology [address] [place] [address] Social History Tobacco Use Types Packs/Day Years [...] documented as of this encounter Care Teams Circuit Court Judge Relationship Specialty Start Date End Date Nato Martinez MD [address] [place] [address], [address] [place] [address] PCP - General Internal Medicine 05/13/17 Marion Mattson MD [address] [place] [address], [address] [place] [address] [email or web address] Historical LMR Provider 02/14/17 Kevlin Acosta MD [address] [place] [address] [email or web address] Historical LMR Provider 02/14/17 Yessica Hernandes MD [address] [place] [address] [email or web address] Obstetrics and Gynecology 09/02/17 Karen Yen MD [address] [place] [address] Medical Oncology 09/02/17 Nato Martinez MD [address] [place] [address], [address] [place] [address] Insurance Assigned Provider 4/6/24 documented as of this encounter Additional Source Comments The information contained in this document represents components of the legal health record. It is not the complete legal health record.[facility]
--- OUTSIDE RECORDS SUMMARY | 2025-03-18 19:31 | XMS_ITS | Encounter Summary ---
Author Organization [facility] Address [address] [place] [address] [place] [address] Phone Care Team Providers Care High Pressure Cleaner Name Role Phone Marion Mattson MD Unavailable Kelvin Acosta MD Unavailable [phone] Qi Velez MD Unavailable [phone] Papa Gillespie MD Unavailable Nato Martinez MD Primary Care Provider [phone] Yessica Hernandes MD Unavailable Karen Yen MD Unavailable Nato Martinez MD Unavailable [phone] Encounter Details Date Type Department Care Team (Latest Contact Info) Description 11/20/2017 Transcribe Orders [facility] Phleb [place] [address] [place] [address] Josiane Treviño PA [address] [place] [phone] Change in bowel habits (Primary Dx) Social History Tobacco Use Types [...] as of this encounter Results * (ABNORMAL) Basic metabolic panel (11/20/2017 11:34 AM EDT) SODIUM 144 133 - 146 mmol/L [facility] CHLORIDE 101 96 - 108 mmol/L [facility] POTASSIUM 4.4 3.3 - 5.1 mmol/L [facility] CO2 27 21 - 35 mmol/L [facility] BUN 12 6 - 19 mg/dL [facility] CREATININE 0.70 0.5 - 1.5 mg/dL [facility] GLUCOSE 120(H) 70 - 99 mg/dL [facility] CALCIUM 9.5 8.4 - 10.3 mg/dL [facility] EGFR 94 >59 mL/min/1.7 3m2 [facility] Comment:If patient is black, multiply result by 1.159. Estimated glomerular filtration rate calculated using the CKD-EPI equation. ANION GAP 20 10 - 20 mmol/L [facility] Blood 11/20/2017 11:3 4 AM EDT 11/20/2017 11:36 AM EDT us Josiane BEST LAB BLOOD BKR ORDERABLES Fi nal Result Performing Organization Address City/State/[facility] Co de Phone Number [facility] [address] [place] [address] documented in this encounter Visit Diagnoses Diagnosis Change in bowel habits- Primary Other symptoms involving digestive system documented in this encounter Additional Health Concerns Infection Onset Date Last Indicated Resolved Time CoV-Risk 01/18/2021 01/18/2021 01/28/2021 1:24 AM EDT COVID-19 10/07/2024 10/07/2024 10/28/2024 1:21 AM EDT documented as of this encounter Care Teams High Pressure Cleaner Relationship Specialty Start Date End Date Nato Martinez MD [address] [facility], [address] [place] [address] PCP - General Internal Medicine 05/13/17 Marion Mattson MD [address] [facility], [address] [place] [address] [email or web address] Historical LMR Provider 02/14/17 Kelvin Acosta MD [address] [place] [address] [email or web address] Historical LMR Provider 02/14/17 Qi Velez MD [address] [place] [address] Historical LMR Provider 02/14/17 2 Papa Gillespie MD [address] [place] [address], [facility] [address] [place] [address] [email or web address] Historical LMR Provider 02/14/17 05/04/21 Yessica eHrnandes MD [address] [place] [address] [email or web address] Obstetrics and Gynecology 09/02/17 Karen Yen MD [address] [place] [address] [email or web address] Medical Oncology 09/02/17 Nato Martinez MD [address] [place] [address], [address] [place] [address] [email or web address] Insurance Assigned Provider 08/01/23 documented as of this encounter Additional Source Comments The information contained in this document represents components of the legal health record. It is not the complete legal health record.[facility]
--- OUTSIDE RECORDS SUMMARY | 2025-03-18 19:31 | XMS_ITS | Encounter Summary ---
Author Organization [facility] Address [facility] [employer] [facility] [address] [place] [address] Phone Care Team Providers Care Table Games Supervisor Name Role Phone Marion Mattson MD Unavailable [phone] Kelvin Acosta MD Unavailable [phone] Qi Velez MD Unavailable [phone] Papa Gillespie MD Unavailable Nato Martinez MD Primary Care Provider [phone] Yessica Hernandes MD Unavailable Karen Yen MD Unavailable Nato Martinez MD Unavailable [phone] Encounter Details Date Type Department Care Team (Late st Contact Info) Description 06/29/2020 Procedure Pass Non-Invasive Cardiology [address] [place] [address] Social History Tobacco Use Types Packs/Day Years [...] documented as of this encounter Care Teams Table Games Supervisor Relationship Specialty Start Date End Date Nato Martinez MD [address] [place] [address], [address] [place] [address] PCP - General Internal Medicine 05/13/17 Marion Mattson MD [address] [place] [address], [address] [place] [address] Historical LMR Provider 02/14/17 Kelvin Acosta MD [address] [place] [address] [email or web address] Historical LMR Provider 02/14/17 Qi Velez MD [address] [place] [address] Historical LMR Provider 02/14/17 2 Papa Gillespie MD [address] [place] [address], [address] [place] [address] Historical LMR Provider 02/14/17 05/04/21 Yessica Hernandes MD [address] [place] [address] [email or web address] Obstetrics [email or web address] Gynecology 09/02/17 Karen Yen MD [address] [place] [address] [email or web address] Medical Oncology 09/02/17 Nato Martinez MD [address] [facility], [address] [place] [address] [email or web address] Insurance Assigned Provider 08/01/23 documented as of this encounter Additional Source Comments The information contained in this document represents components of the legal health record. It is not the complete legal health record.[facility]
--- OUTSIDE RECORDS SUMMARY | 2025-03-18 19:31 | XMS_ITS | Encounter Summary ---
Author Organization [facility] Address [facility] [address] [place] [address] Phone Care Team Providers Care Clinical Studies Specialist Name Role Phone Marion Mattson MD Unavailable Kelvin Acosta MD Unavailable [phone] Qi Velez MD Unavailable [phone] Papa Gillespie MD Unavailable [phone] Nato Martinez MD Primary Care Provider [phone] Yessica Hernandes MD Unavailable Karen Yen MD Unavailable Nato Martinez MD Unavailable [phone] Encounter Details Date Type Department Care Team (Late st Contact Info) Description 02/04/2021 Procedure Pass Non-Invasive Cardiology [address] [place] [address] Social History Tobacco Use Types Packs/Day Years [...] documented as of this encounter Care Teams Clinical Studies Specialist Relationship Specialty Start Date End Date Nato Martinez MD [address] [place] [address], [address] [place] [address] [email or web address] PCP - General Internal Medicine 05/13/17 Marion Mattson MD [address] [place] [address] [address] [place] [address] [email or web address] Historical LMR Provider 02/14/17 Kelvin Acosta MD [address] [place] [address] [email or web address] Historical LMR Provider 02/14/17 Qi Velez MD [address] [address] Historical LMR Provider 02/14/17 2 Papa Gillespie MD [address] [place] [address] [email or web address] Historical LMR Provider 02/14/17 05/04/21 Yessica Hernandes MD [address] [place] [address] [email or web address] Obstetrics and Gynecology 09/02/17 Karen Yen MD [address] [place] [address] Medical Oncology 09/02/17 Nato Martinez MD [address] [place] [address], [address] [place] [address] [email or web address] Insurance Assigned Provider 08/01/23 documented as of this encounter Additional Source Comments The information contained in this document represents components of the legal health record. It is not the complete legal health record.[facility]
--- OUTSIDE RECORDS SUMMARY | 2025-03-18 19:31 | XMS_ITS | Clinical Summary ---
Author Organization [facility] Address [address] [place] [address] Phone Care Team Providers Care Sane Rn Name Role Phone Unavailable Primary Care Provider Unavailabl e Allergies Active Allergy Reactions Criticality Noted Date Comments Clindamycin Diarrhea 11/04/2011 Hydroxychloroquine Unknown 09/09/2019 Retinal toxicity Levofloxacin Other 05/05/2017 Other Reaction(s): Gait abnormalities, Joint pain tendinitis Oxycodone Itching 05/14/2017 Prednisone Unknown 05/02/2020 Sulfamethoxazole-Trimethopr im Anaphylaxis,Hives High 05/14/2017 Vancomycin Analogues Hives High 11/04/2011 Varenicline Other 04/29/2019 Vivid dreams and nightmares Medications immun glob G,IgG,/pro/IgA 0-50 (HIZENTRA SUBQ) Inject 12 g under the skin every 14 (fourteen) days. 04/13/2023 Active isosorbide mononitrate (IMDUR) 30 mg 24 hr tablet Take 1 tablet (30 mg total) by mouth daily. 10/05/2020 Active metoprolol succinate 50 mg capsule,sprinkle ,ER 24hr Take 50 mg by mouth 1 (one) time each day. 04/11/2022 Active Ofatumumab (Kesimpta Pen) 20 mg/0.4 mL pen injector injection Inject 0.4 mL (20 mg total) under the skin every 30 (thirty) days. Active amLODIPine (NORVASC) 2.5 mg tablet Take 1 tablet (2.5 mg total) by mouth 2 (two) times a day. Active cloNIDine (CATAPRES) 0.1 mg tablet Take 1 tablet (0.1 mg total) by mouth 1 (one) time each day. Active cloNIDine (CATAPRES) 0.2 mg tablet Take 1 tablet (0.2 mg total) by mouth at bedtime. Active atorvastatin (LIPITOR) 40 mg tablet Take 1 tablet (40 mg total) by mouth at bedtime. Active esomeprazole (NexIUM) [address] capsule Take 1 capsule (20 mg total) by mouth 1 (one) time each day before breakfast. Do not open capsule. Active hyoscyamine (ANASPAZ,LEVSIN) 0.125 mg tablet Take 1 tablet (0.125 mg total) by mouth 1 (one) time each day. Active baclofen (LIORESAL) 20 mg tablet Take 1.5 tablets (30 mg total) by mouth 2 (two) times a day. Active aspirin 81 mg chewable tablet Chew 1 tablet (81 mg total) 1 (one) time each day. Active primidone (MYSOLINE) 25 MG tablet Take 1 tablet (25 mg total) by mouth 1 (one) time each day. Active albuterol HFA (PROAIR HFA ; PROVENTIL HFA ; VENTOLIN HFA) 90 mcg/actuation inhaler Inhale 2 puffs by mouth every 6 (six) hours if needed for wheezing. Active armodafiniL (NUVIGIL) 50 mg tablet Take 2 tablets (100 mg total) by mouth 1 (one) time each day if needed (when needed). Max Daily Amount: 100 mg Active Active Problems Problem Noted Date Diagnosed Date Arthritis of carpometacarpal (CMC) joint of both thumbs 01/23/2025 Bilateral carpal tunnel syndrome 01/23/2025 Other forms of systemic lupu s erythematosus ([facility] V24, [facility] V28) 01/23/2025 Herniated disc, cervical 01/23/2025 Overview (01/23/2025): and lumbar. MRI cervical ordered Dec [address] Jefferson, pending. 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 Overview (01/23/2025): 2020 H/O recurrent urinary tract infection 01/23/2025 H/O: section 01/23/2025 Overview (01/23/2025): 1981 and 1987 S/p tubal ligation 1989 Wheelchair dependence 01/23/2025 Overview (01/23/2025): Power chair since 2014 Essential tremor 08/18/2023 Herniated lumbar intervertebral disc 11/07/2022 Hypersomnia 10/30/2020 Overview (01/23/2025): Severe with sleep attacks No cataplexy or sleep paralysis Dreams during nap PSG/MSLT off centrally acting meds, mean SL 5 minutes, no SOREM and REM latency during PSG was > 2 hours Last Assessment & Plan: PSG/MSLT done off centrally acting medications document [...] sleep disordered breathing then re: start modfanil/armodafinil. TIA (transient ischemic attack) 05/02/2020 Overview (01/23/2025): Last Assessment & Plan: None recurrent Mild persistent asthma without complication 07/2019 Hair loss 01/10/2019 Overview (01/23/2025): Last Assessment & Plan: I evaluated her for thyroid dysfunction such as hyperthyroidism for hair loss but she is chemically euthyroid so this is not the etiology for hair loss. Sometimes taking zinc supplement may be helpful for hair loss. Gastroesophageal reflux disease 10/29/2018 Osteoarthritis of spine with radiculopathy, lumb ar region 10/29/2018 Overview (01/23/2025): Refer to [facility] for possible epidural steroid injection. 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 Plaquenil dc'd after Ophtho exam revealed possible retinal toxicity. [facility] Last Assessment & Plan: [...] if necessary at bedtime x 3 weeks. Dysphagia 05/05/2017 Immunoglobulin G deficiency ([facility] V24, [facility] V28) 05/05/2017 Overview (01/23/2025): On Hizentra SC by Dr. De Los Santos. Menopausal state 05/05/2017 Osteoarthritis of hand 10/12/2013 Multiple sclerosis 09/15/2013 Overview (01/23/2025): moderate progressive, followed at [facility], Dr. Esposito. Wheelchair bound since 2014 Maintained on Ocrevus, Q6 months. To restart September: Having more resp issues, may need to adjust her resp support. June 2020: Has more autonomic issues, blood pressure medication regimen is being adjusted by cardiology. She has significant sleep issues and daytime sleepiness. July 2020: Refer to PT. She is also restarting meditation and councelling. Essential hypertension 11/04/2011 Overview (01/23/2025): Worsening in August 2019. May be secondary to autonomic instability and possible worsening pain. She has not tolerated beta-blockers. Already on calcium channel ruth. Add clonidine patch. October 2019: Finally stable on norvasc, metoprolol, and clonidine [exchange for tablets to rash on the patch] Dr Calderón ordered echo, renal u/s. May 2020: She needs to have her meds titrated for optimal SBP<130. Will incr clonidine to 0.2mg BID, cont norvasc and metoprolol September 2020: Lower extremity edema is difficult to tolerate, will decrease amlodipine to 5 mg. Add Imdur 30 mg due to persistent mild angina and nuclear stress test showing small reversible defect. Encounters Date Type Department Care Team Description 01/23/2025 1:00 PM EDT Office Visit Orthopedic Surgery - [address] [place] [address] Lisa Montejo MD Arthritis of carpometacarpal (CMC) joint of both thumbs (Primary Dx); Bilateral carpal tunnel syndrome; Arthritis of carpometacarpal (CMC) joint of right thumb from Last 3 Months Social History Tobacco Use Types Packs/Day Years Used Date Smoking Tobacco: Never Assessed Comments Unknown Sex and Gender Information Value Date Recorded Sex Assigned at Not on file Legal Sex Female 3:48 PM EDT Gender Identity Not on file Sexual Orientation Not on file Last Filed Vital Signs Vital Sign Reading Time Taken Comments Blood Pressure - - Pulse - - Temperature - - Respiratory Rate - - Oxygen Saturation - - Inhaled Oxygen Concentration - - Weight 61.2 kg (135 lb) 01/23/2025 1:26 PM EDT Height 167.6 cm (5' 6 ) 01/23/2025 1:26 PM EDT Body Mass Index 21.79 01/23/2025 1:26 PM EDT Plan of Treatment Health Maintenance Due Date Last Done Comments Colorectal Cancer Screening: Colonoscopy 1957 DTaP,Tdap,and Td Vaccines (1 - Tdap) 1976 Zoster Vaccines (1 of 2) 1976 Breast Cancer Screening 02/07/2024 02/06/2022 Depression Screening 04/27/2024 COVID-19 Vaccine (4 - 2024- season) 2024 12/19/2020, 07/17/2020, 06/19/2020 Influenza Vaccine (#1) 2024 , 02/21/2023, 02/03/2022, Additional history exists Cholesterol Screening (Lipid Panel) 01/16/2025 Falls Risk Assessment 01/16/2025 Medicare Annual Wellness Visit 01/16/2025 Osteoporosis Screening (Bone Density Screening) 01/16/2025 Social Influencers of Health Screening 01/16/2025 Hypertension/CHF/CAD Annual BMP Blood Test 07/14/2025 07/14/2024, 03/29/2024, 03/17/2024, Additional history exists Pneumococcal Vaccine: 50+ Years Completed 12/09/2022 RSV Immunization Adult Patients Completed 03/13/2024 Hepatitis C Screening Completed 08/02/2024, 025 HIB Vaccines Aged Out No longer eligi ble based on patient's age to complete this topic HPV Vaccines Aged Out No longer eligi ble based on patient's age to complete this topic Hepatitis A Vaccines Aged Out No long er eligible based on patient's age to complete this topic Hepatitis B Vaccines Aged Out No long er eligible based on patient's age to complete this topic IPV Vaccines Aged Out No longer eligi ble based on patient's age to complete this topic MMR Vaccines Aged Out No longer eligi ble based on patient's age to complete this topic Meningococcal ACWY Vaccine Aged Out N o longer eligible based on patient's age to complete this topic Meningococcal B Vaccine Aged Out No l onger eligible based on patient's age to complete this topic RSV Immunization Patients Under 20 months Aged Out No longer eligible based on patient's age to complete this topic Varicella Vaccines Aged Out No longer eligible based on patient's age to complete this topic Procedures Procedure Name Priority Date/Time Associated Diagnosis Comments XR HAND 3+ VIEWS BILAT Routine 01/23/2025 2:04 PM EDT Bilateral hand pain ME ARTHROCENTESIS/ASP IRATION/INJECTION SMALL JOINT/BURSA WO U/S GUIDANCE Routine 01/23/2025 1:00 PM EDT Arthritis of carpometacarpal (CMC) joint of right thumb from Last 3 Months Results * XR Hand 3+ Views bilat (01/23/2025 2:04 PM EDT) Anatomical Region Laterality Modality Upper Extremities, Hand Bilateral Computed Radiography Narrative 01/23/2025 9:16 PM EDT AP, lateral, oblique of both hands were obtained on 01/23/2025. There are no prior images available for comparison. The bone is noted to be osteopenic. There are no obvious fractures, lytic lesions, or unusual calcifications. Patient is slightly ulnar minus but with a notably long ulnar styloid bilaterally. Patient does have on the right side some narrowing at the basal joint with thinning of the joint space and some beginnings of osteophyte formation. There is also some slight thinning at the STT joint. On the patient's left side she has some basal joint arthritis with subchondral cyst formation and slight narrowing but much more noticeable loss of joint space and sclerosis at the scaphoid trapezial joint. Impression: Patient with some pantrapezial arthritis bilaterally us Lisa Montejo MD IMG XR PROCEDURES Final Resul t * ME ARTHROCENTESIS/ASPIRATION/INJECTION SMALL JOINT/BURSA WO U/S GUIDANCE (01/23/2025 1:00 PM EDT) Lisa Ramos MD - 01/23/2025 1:00 PM EDT Lisa Montejo MD 01/23/2025 9:52 PM Small Inj/Asp: R thumb CMC Indications: pain Details: 25 G needle, dorsal approach Medications: 20 mg triamcinolone acetonide 40 mg/mL Right thumb was prepped with Betadine alcohol. A small wheal of 1% lidocaine with epinephrine was injected just under the skin overlying the basal joint. After that had a chance to take effect I prepped the skin again and then with sterile technique I then injected 20 mg of Kenalog into the basal joint. It flowed into the joint easily. A Band-Aid was then applied. The patient tolerated this well. Informed Consent: Site: Right thumb CMC Laterality: Right Relevant images/test results available and reviewed: yes Procedure/treatment, purpose, treatment alternatives, risks/potential complications and benefits explained: yes Risk/complications/benefits details: Cortisone is an effective medication to treat swelling, inflammation, and pain. It is used frequently for such conditions as arthritis, tendinitis, bursitis, and carpal tunnel syndrome. However, there are risks to the use of cortisone. For diabetics it can raise blood sugars to a dangerous level. It can cause skin thinning, fat atrophy, skin discoloration, and wound healing issues. It can predispose to infection. Chronic use can affect bone metabolism. It can over time and with repeated usage become less effective. Generally it is advisable NOT to have more than 3 injections/year. Patient questions answered: yes Patient agrees, verbalizes understanding, and wants to proceed: yes Consent given by: Patient Informed consent discussion completed by Physician/RIGOBERTO with patient: Verbal Lisa Montejo MD IN CLINIC/BEDSIDE ORDERABLES Final Result from Last 3 Months Insurance MEDICARE [facility]
--- OUTSIDE RECORDS SUMMARY | 2025-03-18 19:31 | XMS_ITS | Encounter Summary ---
Author Organization [facility] Address [address] [place] [address] Care Team Providers Care Senior Mobile Solutions Architect Name Role Phone Nato Martinez Primary Care Provider [phone] Encounter Details Date Type Department Care Team (Late st Contact Info) Description 07/22/2017 Orders Only [facility] Orthopedic Surgery [address] [place] [address] [address] [place] [address] Dalton Marcos MD Social History Tobacco Use [...] Priority Associated Diagnoses Orde r Schedule XRAY SCAPULA COMPLETE - RIGHT FC Imaging Routine Right shoulder pain, unspecified chronicity Expected: 07/22/2017, Expires: 07/22/2018 documented as of this encounter Visit Diagnoses Diagnosis Right shoulder pain, unspecified chronicity documented in this encounter Care Teams Senior Mobile Solutions Architect Relationship Specialty Start Date End Date Nato Martinez [address] [place] [address] PCP - General Internal Medicine 07/22/17 documented as of this encounter
--- OUTSIDE RECORDS SUMMARY | 2025-03-18 19:31 | XMS_ITS | Encounter Summary ---
Author Organization [facility] Address [facility] [address] [place] [address] Phone Care Team Providers Care Certified Respiratory Therapist Name Role Phone Marion Mattson MD Unavailable [phone] Kelvin Acosta MD Unavailable [phone] Nato Martinez MD Primary Care Provider Yessica Hernandes MD Unavailable Karen Yen MD Unavailable [phone] Nato Martinez MD Unavailable [phone] Encounter Details Date Type Department Care Team (Late st Contact Info) Description 01/13/2024 Procedure Pass [facility], [address] [address] Social History Tobacco Use Types Packs/Day Years [...] documented as of this encounter Care Teams Certified Respiratory Therapist Relationship Specialty Start Date End Date Nato Martinez MD [address] [place] [address], [address] [place] [address] [email or web address] PCP - General Internal Medicine 05/13/17 Marion Mattson MD [address] [place] [address], [address] [place] [address] [email or web address] Historical LMR Provider 02/14/17 Kelvin Acosta MD [address] [place] [address] [email or web address] Historical LMR Provider 02/14/17 Yessica [facility]es [facility] [place] [address] [email or web address] Obstetrics and Gynecology 09/02/17 Karen Yen MD [address] [place] [address] [email or web address] Medical Oncology 09/02/17 Nato Martinez MD [address] [place] [address], [address] [place] [address] [email or web address] Insurance Assigned Provider 08/01/23 documented as of this encounter Additional Source Comments The information contained in this document represents components of the legal health record. It is not the complete legal health record.[facility]
--- OUTSIDE RECORDS SUMMARY | 2025-03-18 19:31 | XMS_ITS | Encounter Summary ---
Author Organization [facility] Address [facility] [employer] [facility] [address] [place] [address] Phone Care Team Providers Care Submarine Cable Equipment Technician Name Role Phone Marion Mattson MD Unavailable Kelvin Acosta MD Unavailable [phone] Qi Velez MD Unavailable [phone] Papa Gillespie MD Unavailable [phone] Nato Martinez MD Primary Care Provider Yessica Hernandes MD Unavailable Karen Yen MD Unavailable Nato Martinez MD Unavailable [phone] Encounter Details Date Type Department Care Team (Late st Contact Info) Description 05/03/2020 Procedure Pass [facility], [address] [address] Social History Tobacco Use Types Packs/Day Years [...] documented as of this encounter Care Teams Submarine Cable Equipment Technician Relationship Specialty Start Date End Date Nato Martinez MD [address] [place] [address], [address] [place] [address] PCP - General Internal Medicine 05/13/17 Marion Mattson MD [address] [place] [address], [address] [place] [address] Historical LMR Provider 02/14/17 Kelvin Acosta MD [address] [place] [address] [email or web address] Historical LMR Provider 02/14/17 Qi Velez MD [address] [place] [address] Historical LMR Provider 02/14/17 2 Papa Gillespie MD [address] [place] [address], [address] [address] Historical LMR Provider 02/14/17 05/04/21 Yessica Hernandes MD [address] [place] [address] [email or web address] [email or web address] 09/02/17 Karen Yen MD [address] [place] [address] [email or web address] Medical Oncology 09/02/17 Nato Martinez MD [address] [place] [address], [address] [place] [address] [email or web address] Insurance Assigned Provider 08/01/23 documented as of this encounter Additional Source Comments The information contained in this document represents components of the legal health record. It is not the complete legal health record.[facility]
--- OUTSIDE RECORDS SUMMARY | 2025-03-18 19:31 | XMS_ITS | Encounter Summary ---
Author Organization [facility] Address [address] [place] [address] [place] [address] Phone Care Team Providers Care Emergency Response Officer Name Role Phone Marion Mattson MD Unavailable [phone] Kelvin Acosta MD Unavailable [phone] Qi Velez MD Unavailable [phone] Papa Gillespie MD Unavailable Nato Martinez MD Primary Care Provider Yessica Hernandes MD Unavailable Karen Yen MD Unavailable [phone] Nato Martinez MD Unavailable Encounter Details Date Type Department Care Team (Late st Contact Info) Description 03/10/2018 Procedure Pass [facility] Endoscopy Admitting Dept Virtual Department [address] [place] [address] Social History Tobacco Use Types Packs/Day Years [...] documented as of this encounter Care Teams Emergency Response Officer Relationship Specialty Start Date End Date Nato Martinez MD [address] [place] [address], [address] [place] [address] PCP - General Internal Medicine 05/13/17 Marion Mattson MD [address] [place] [address] [email or web address] Historical LMR Provider 02/14/17 Kelvin Acosta MD [address] [place] [address] [email or web address] Historical LMR Provider 02/14/17 Qi Velez MD [address] [place] [address] Historical LMR Provider 02/14/17 2 Papa Gillespie MD [address] [place] [address] [email or web address] Historical LMR Provider 02/14/17 05/04/21 Yessica Hernandes MD [address] [place] [address] [email or web address] Obstetrics and Gynecology 09/02/17 Karen Yen MD [address] [place] [address] Medical Oncology 09/02/17 Nato Martinez MD [address] [place] [address], [address] [place] [address] [email or web address] Insurance Assigned Provider 08/01/23 documented as of this encounter Additional Source Comments The information contained in this document represents components of the legal health record. It is not the complete legal health record.[facility]
--- OUTSIDE RECORDS SUMMARY | 2025-03-18 19:31 | XMS_ITS | Encounter Summary ---
Author Organization [facility] Address [address] [place] [address] [place] [address] Phone Care Team Providers Care Drum Puller Name Role Phone Marion Mattson MD Unavailable [phone] Kelvin Acosta MD Unavailable [phone] Qi Velez MD Unavailable Papa Gillespie MD Unavailable Nato Martinez MD Primary Care Provider Yessica Hernandes MD Unavailable Karen Yen MD Unavailable Nato Martinez MD Unavailable [phone] Encounter Details Date Type Department Care Team (Late st Contact Info) Description 02/21/2021 Transcribe Orders [facility] [address] [place] [address] Valentina De Los Santos MD [address] [facility] [place] [address] Social History Tobacco Use Types Packs/Day Years [...] documented as of this encounter Care Teams Drum Puller Relationship Specialty Start Date End Date Nato Martinez MD [address] [place] [address], [address] [place] [address] [email or web address] PCP - General Internal Medicine 05/13/17 Marion Mattson MD [address] [place] [address] [address] [place] [address] [email or web address] Historical LMR Provider 02/14/17 Kelvin Acosta MD [address] [place] [address] [email or web address] Historical LMR Provider 02/14/17 Qi Velez MD [address] [place] [address] Historical LMR Provider 02/14/17 2 Papa Gillespie MD [address] [place] [address], [facility] [address] [place] [address] Historical LMR Provider 02/14/17 05/04/21 Yessica Hernandes MD [address] [address] [email or web address] 09/02/17 Karen Yen MD [address] [place] [address] [email or web address] Medical Oncology 09/02/17 Nato Martinez MD [address] [place] [address], [address] [place] [address] [email or web address] Insurance Assigned Provider 08/01/23 documented as of this encounter Additional Source Comments The information contained in this document represents components of the legal health record. It is not the complete legal health record.[facility]
--- OUTSIDE RECORDS SUMMARY | 2025-03-18 19:31 | XMS_ITS | Encounter Summary ---
Author Organization [facility] Address [address] [place] [address] [place] [address] Phone Care Team Providers Care Comptroller Name Role Phone Marion Mattson MD Unavailable Kelvin Acosta MD Unavailable [phone] Qi Velez MD Unavailable [phone] Papa Gillespie MD Unavailable [phone] Nato Martinez MD Primary Care Provider [phone] Yessica Hernandes MD Unavailable Karen Yen MD Unavailable Nato Martinez MD Unavailable [phone] Reason for Referral * MRI/CAT Scan - Closed Specialty Diagnoses / Procedures Referred By Contyoselin t Referred To Contact Radiology Diagnoses Change in bowel habits Abdominal pain, unspecified abdominal location Procedures CT Abdomen/Pelvis Josiane Treviño PA Phone: tel: fax: Referral ID Status Reason Start Date Expiration Date Visits Re quested Visits Authorized [id number] Closed 11/23/2017 11/23/2018 1 1 Encounter Details Date Type Department Care Team ([facility] st Contact Info) Description 11/23/2017 Ancillary Orders Virtual Department [address] [place] [address] Josiane Treviño PA [address] [place] [address] Change in bowel habits; Abdominal pain, unspecified abdominal location Social History Tobacco Use Types Packs/Day Years [...] documented as of this encounter Results * CT ABDOMEN/PELVIS WITH CONTRAST (12/04/2017 2:16 PM EDT) Anatomical Region Laterality Modality Abdomen, Pelvis Computed Tomogra phy 12/04/2017 2:33 PM EDT Impressions 12/04/2017 6:57 PM EDT No evidence of an acute abdominal or pelvic process. Large stool volume in the colon. TOTAL CTDIvol: 6.30 mGy POS - [id number] Edited by: Mari Mccabe on 12/04/2017 3:22 PM Narrative 12/04/2017 6:57 PM EDT COMPARISON: 09/23/2016 TECHNIQUE: CT of the abdomen and pelvis with IV and oral contrast. Multiplanar reformatted images generated. Automated exposure control utilized. FINDINGS: CT ABDOMEN: Lower thorax: Dependent atelectasis. No pleural or pericardial effusions. Liver: Stable 1 cm cyst in the anterior superior right hepatic lobe. No new lesion detected. Gallbladder/biliary tree: No calcified gallstones or pericholecystic inflammatory change. No biliary ductal dilatation Spleen: No abnormality detected. Pancreas: No abnormality detected. Adrenal glands: Stable tiny nodularity on the left. No mass on the right. Kidneys/ureters: No hydronephrosis or focal lesions. Vasculature: Abdominal aorta has normal caliber. Mild to moderate atherosclerotic calcifications of the aorta and iliac vessels. Hepatic veins and portal vein are patent. Peritoneum: No evidence of free intraperitoneal air, free fluid, or organized collections. Lymph nodes: No lymphadenopathy detected. Stomach/duodenum: Probable small hiatal hernia. Body wall: Multiple small fat-containing ventral hernias. CT PELVIS: Bladder: Multiple small diverticula and minimal irregular wall thickening. No stones. Prominent mass effect on the bladder by a large exophytic uterine fibroid. Stable metallic radiodensities which partially surround the urethra and are positioned between the bladder and the vagina. Reproductive: Chronic nodular contours of the uterus, likely related to fibroids. There is a dominant exophytic fibroid arising from the right anterior fundus measuring 3 cm as before. No adnexal abnormality. Bowel: Large volume of stool in the colon. No bowel obstruction. Normal appendix. Redundant colon. Scattered colonic diverticula most prominent involving the sigmoid colon without evidence of diverticulitis. Peritoneum: No free fluid or organized collections. Lymph nodes: No iliac chain or inguinal lymphadenopathy. Bones: No new compression deformities. Chronic severe disc space narrowing at L4-5 and L5-S1 and mild/moderate at L3-4. Diffuse moderate facet arthropathy in the lumbar spine. Stable sclerotic changes across the sacroiliac joints. No destructive bone lesion. Procedure Note Lee Syed MD - 12/04/2017 COMPARISON: 09/23/2016 TECHNIQUE: CT of the abdomen and pelvis with IV and oral contrast.Multiplanar reformatted images generated. Automated exposure controlutilized. FINDINGS: CT ABDOMEN: Lower thorax: Dependent atelectasis. No pleural or pericardialeffusions. Liver: Stable 1 cm cyst in the anterior superior right hepatic lobe. Nonew lesion detected. Gallbladder/biliary tree: No calcified gallstones or pericholecysticinflammatory change. No biliary ductal dilatation Spleen: No abnormality detected. Pancreas: No abnormality detected. Adrenal glands: Stable tiny nodularity on the left. No mass on theright. Kidneys/ureters: No hydronephrosis or focal lesions. Vasculature: Abdominal aorta has normal caliber. Mild to moderateatherosclerotic calcifications of the aorta and iliac vessels. Hepaticveins and portal vein are patent. Peritoneum: No evidence of free intraperitoneal air, free fluid, ororganized collections. Lymph nodes: No lymphadenopathy detected. Stomach/duodenum: Probable small hiatal hernia. Body wall: Multiple small fat-containing ventral hernias. CT PELVIS: Bladder: Multiple small diverticula and minimal irregular wall thickening.No stones. Prominent mass effect on the bladder by a large exophyticuterine fibroid. Stable metallic radiodensities which partially surroundthe urethra and are positioned between the bladder and the vagina. Reproductive: Chronic nodular contours of the uterus, likely related tofibroids. There is a dominant exophytic fibroid arising from the rightanterior fundus measuring 3 cm as before. No adnexal abnormality. Bowel: Large volume of stool in the colon. No bowel obstruction. Normalappendix. Redundant colon. Scattered colonic diverticula most prominentinvolving the sigmoid colon without evidence of diverticulitis. Peritoneum: No free fluid or organized collections. Lymph nodes: No iliac chain or inguinal lymphadenopathy. Bones: No new compression deformities. Chronic severe disc spacenarrowing at L4- 5 and L5-S1 and mild/moderate at L3-4. Diffuse moderatefacet arthropathy in the lumbar spine. Stable sclerotic changes acrossthe sacroiliac joints. No destructive bone lesion. IMPRESSION: No evidence of an acute abdominal or pelvic process. Large stool volumein the colon. TOTAL CTDIvol: 6.30 mGy POS - [id number] Edited by: Mari Mccabe on 12/04/2017 3:22 PM us Josiane BEST IMG CT ABD/PELVIS Final Res ult documented in this encounter Visit Diagnoses Diagnosis Change in bowel habits Other symptoms involving digestive system Abdominal pain, unspecified abdominal location Change in bowel habits Other symptoms involving digestive system Abdominal pain, unspecified abdominal location documented in this encounter Additional Health Concerns Infection Onset Date Last Indicated Resolved Time CoV-Risk 01/18/2021 01/18/2021 01/28/2021 1:24 AM EDT COVID-19 10/07/2024 10/07/2024 10/28/2024 1:21 AM EDT documented as of this encounter Care Teams Comptroller Relationship Specialty Start Date End Date Elsea, Peter A, MD [address] [place] [address], [address] [place] [address] PCP - General Internal Medicine 05/13/17 Marion Mattson MD [address] [facility], [address] [place] [address] [email or web address] Historical LMR Provider 02/14/17 Kelvin Acosta MD [address] [place] [address] [email or web address] Historical LMR Provider 02/14/17 Qi Velez MD [address] [place] [address] Historical LMR Provider 02/14/17 2 Papa Gillespie MD [address] [place] [address], [facility] [address] [place] [address] [email or web address] Historical LMR Provider 02/14/17 05/04/21 Yessica Hernandes MD [facility] [place] [address] [email or web address] Obstetrics and Gynecology 09/02/17 Karen Yen MD [address] [place] [address] Medical Oncology 09/02/17 Nato Martinez MD [address] [place] [address], [address] [place] [address] [email or web address] Insurance Assigned Provider 08/01/23 documented as of this encounter Additional Source Comments The information contained in this document represents components of the legal health record. It is not the complete legal health record.[facility]
--- OUTSIDE RECORDS SUMMARY | 2025-03-18 19:31 | XMS_ITS | Encounter Summary ---
Author Organization [facility] Address [address] [place] [address] [address] [place] [address] Phone Care Team Providers Care Wood Grinder Operator Name Role Phone Marion Mattson MD Unavailable [phone] Kelvin Acosta MD Unavailable [phone] Nato Martinez MD Primary Care Provider [phone] Yessica Hernandes MD Unavailable Karen Yen MD Unavailable [phone] Nato Martinez MD Unavailable [phone] Encounter Details Date Type Department Care Team (Late st Contact Info) Description 06/22/2023 Procedure Pass [facility] [address] [place] [address] Social History Tobacco Use Types Packs/Day Years [...] documented as of this encounter Care Teams Wood Grinder Operator Relationship Specialty Start Date End Date Nato Martinez MD [address] [place] [address], [address] [place] [address] [email or web address] PCP - General Internal Medicine 05/13/17 Marion Mattson MD [address] [place] [address], [address] [place] [address] [email or web address] Historical LMR Provider 02/14/17 Kelvin Acosta MD [address] [place] [address] [email or web address] Historical LMR Provider 02/14/17 Yessica Hernandes MD [facility] [place] [address] [email or web address] Obstetrics and Gynecology 09/02/17 Karen Yen MD [address] [place] [address] [email or web address] Medical Oncology 09/02/17 Nato Martinez MD [address] [place] [address], [address] [place] [address] [email or web address] Insurance Assigned Provider 08/01/23 documented as of this encounter Additional Source Comments The information contained in this document represents components of the legal health record. It is not the complete legal health record.[facility]
--- OUTSIDE RECORDS SUMMARY | 2025-03-18 19:31 | XMS_ITS | Encounter Summary ---
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 Not on file Not on file documented as of this encounter Plan of Treatment Upcoming Encounters Date Type Department Care Team (Late st Contact Info) Description 04/10/2025 10:00 AM EST Office Visit [facility] [address] [place] [address] [phone] Coating Operator: Caro Hansen MD [address] [place] [address] 06/01/2025 4:40 PM EST Follow-Up [facility] [address] [place] [address] Coating Operator: Dio James MD [address] [place] [address] 08/21/2025 10:00 AM EDT Office Visit [facility] [address] [place] [address] Coating Operator: Caro Hansen MD [address] [place] [address] documented as of this encounter Visit Diagnoses Not on filedocumented in this encounter Care Teams Project Management Intern Relationship Specialty Start Date End Date Nato Martinez MD [address] [place] [address], [address] [place] [address] PCP - General 11/13/16 documented as of this encounter
--- OUTSIDE RECORDS SUMMARY | 2025-03-18 19:31 | XMS_ITS | Encounter Summary ---
Author Organization [facility] Address [address] [place] [address] [place] [address] Phone Care Team Providers Care Putty Tinter Maker Name Role Phone Marion Mattson MD Unavailable [phone] Kelvin Acosta MD Unavailable [phone] Qi Velez MD Unavailable [phone] Papa Gillespie MD Unavailable Nato Martinez MD Primary Care Provider Yessica Hernandes MD Unavailable Karen Yen MD Unavailable [phone] Nato Martinez MD Unavailable [phone] Encounter Details Date Type Department Care Team (Late st Contact Info) Description 05/02/2020 Procedure Pass [facility], Ct Scan - [address] [address] Social History Tobacco Use Types Packs/Day Years [...] on file documented as of this encounter Functional Status * Calculated C-SSRS Risk Score (Lifetime/Recent) Answer Date of Assessment Author No Risk Indicated 05/02/2020 8:26 PM Edward Melchor, COMFORT * [place] Suicide Severity Rating Scale (Screener/Recent Self-Report) Question Answer Date of Assessment Author 1. Wish to be (Past 1 Month) No 05/02/2020 8:26 PM Dominga Dey RN 2. Non-Specific Active Suici lamonte Thoughts (Past 1 Month) No 05/02/2020 8:26 PM Lissy Dey RN 6. Suicidal Behavior (Lifetime) No 8:26 PM Edward Dey RN documented as of this encounter Plan of Treatment Not on file documented as of this encounter Visit Diagnoses Not on filedocumented in this encounter Additional Health Concerns Infection Onset Date Last Indicated Resolved Time CoV-Risk 01/18/2021 01/18/2021 01/28/2021 1:24 AM EDT COVID-19 10/07/2024 10/07/2024 10/28/2024 1:21 AM EDT documented as of this encounter Care Teams Putty Tinter Maker Relationship Specialty Start Date End Date Nato Martinez MD [address] [place] [address], [address] [place] [address] PCP - General Internal Medicine 05/13/17 Marion Mattson MD [address] [place] [address], [address] [place] [address] Historical LMR Provider 02/14/17 Kelvin Acosta MD [address] [place] [address] [email or web address] Historical LMR Provider 02/14/17 Qi Velez MD [address] [place] [address] Historical LMR Provider 02/14/17 2 Papa Gillespie MD [address] [place] [address], [address] [place] [address] Historical LMR Provider 02/14/17 05/04/21 Yessica Hernandes MD [address] [place] [address] [email or web address] Obstetrics and Gynecology 09/02/17 Karen Yen MD [address] [place] [address] [email or web address] Medical Oncology 09/02/17 Nato Martinez MD [address] [place] [address], [address] [place] [address] Insurance Assigned Provider 08/01/23 documented as of this encounter Additional Source Comments The information contained in this document represents components of the legal health record. It is not the complete legal health record.[facility]
--- OUTSIDE RECORDS SUMMARY | 2025-03-18 19:31 | XMS_ITS | Encounter Summary ---
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 Not on file Not on file documented as of this encounter Plan of Treatment Upcoming Encounters Date Type Department Care Team (Late st Contact Info) Description 04/10/2025 10:00 AM EST Office Visit [facility] Sclerosis [facility] [address] [place] [address] Band Instrument Repairer: Caro Hansen MD [address] [place] [address] 06/01/2025 4:40 PM EST Follow-Up [facility] Rheumatology [facility] [address] [place] [address] Band Instrument Repairer: Dio James MD [address] [place] [address] 08/21/2025 10:00 AM EDT Office Visit [facility] [address] [place] [address] Band Instrument Repairer: Caro Hansen MD [address] [place] [address] documented as of this encounter Visit Diagnoses Not on filedocumented in this encounter Care Teams Program Trainer Relationship Specialty Start Date End Date Nato Martinez MD [address] [place] [address], [address] [place] [address] PCP - General 11/13/16 documented as of this encounter
--- OUTSIDE RECORDS SUMMARY | 2025-03-18 19:31 | XMS_ITS | Encounter Summary ---
Author Organization [facility] Address [facility] [address] [place] [address] Phone Care Team Providers Care Television Parts Tester Name Role Phone Marion Mattson MD Unavailable Kelvin Acsota MD Unavailable [phone] Qi Velez MD Unavailable [phone] Papa Gillespie MD Unavailable Nato Martinez MD Primary Care Provider [phone] Yessica Hernandes MD Unavailable Karen Yen MD Unavailable Nato Martinez MD Unavailable [phone] Encounter Details Date Type Department Care Team (Late st Contact Info) Description 06/28/2020 Procedure Pass Non-Invasive Cardiology [address] [place] [address] Social History Tobacco Use Types Packs/Day Years [...] documented as of this encounter Care Teams Television Parts Tester Relationship Specialty Start Date End Date Nato Martinez MD [address] [place] [address], [address] [place] [address] PCP - General Internal Medicine 05/13/17 Marion Mattson MD [address] [place] [address] [email or web address] Historical LMR Provider 02/14/17 Kelvin Acosta MD [address] [place] [address] [email or web address] Historical LMR Provider 02/14/17 Qi Velez MD [address] [place] [address] Historical LMR Provider 02/14/17 2 Papa Gillespie MD [address] [place] [address] [email or web address] Historical LMR Provider 02/14/17 05/04/21 Yessica Hernandes MD [address] [place] [address] [email or web address] Obstetrics and Gynecology 09/02/17 Karen Yen MD [address] [place] [address] Medical Oncology 09/02/17 Nato Martinez MD [address] [place] [address], [address] [place] [address] [email or web address] Insurance Assigned Provider 08/01/23 documented as of this encounter Additional Source Comments The information contained in this document represents components of the legal health record. It is not the complete legal health record.[facility]
--- OUTSIDE RECORDS SUMMARY | 2025-03-18 19:31 | XMS_ITS | Encounter Summary ---
Author Organization [facility] Address [facility] [address] [place] [address] Phone Care Team Providers Care Social Service Assistant Name Role Phone Marion Mattson MD Unavailable [phone] Kelvin Acosta MD Unavailable [phone] Qi Velez MD Unavailable Papa Gillespie MD Unavailable Nato Martinez MD Primary Care Provider Yessica Hernandes MD Unavailable Karen Yen MD Unavailable Nato Martinez MD Unavailable [phone] Encounter Details Date Type Department Care Team (Late st Contact Info) Description 06/28/2020 Ancillary [facility] [address] [facility] 3rd Floor, [address] [place] [address] Mable Sutherland MD [address] [place] [address] [email or web address] Social History Tobacco Use Types Packs/Day [...] documented as of this encounter Care Teams Social Service Assistant Relationship Specialty Start Date End Date Nato Martinez MD [address] [place] [address], [address] [place] [address] [email or web address] PCP - General Internal Medicine 05/13/17 Marion Mattson MD [address] [place] [address] [address] [place] [address] [email or web address] Historical LMR Provider 02/14/17 Kelvin Acosta MD [address] [place] [address] [email or web address] Historical LMR Provider 02/14/17 Qi Velez MD [address] [place] [address] Historical LMR Provider 02/14/17 2 Papa Gillespie MD [address] [place] [address] [address] [place] [address] [email or web address] Historical LMR Provider 02/14/17 05/04/21 Yessica Hernandes MD [address] [address] [email or web address] Obstetrics and Gynecology 09/02/17 Karen Yen MD [address] [place] [address] Medical Oncology 09/02/17 Nato Martinez MD [address] [place] [address], [address] [place] [address] [email or web address] Insurance Assigned Provider 08/01/23 documented as of this encounter Additional Source Comments The information contained in this document represents components of the legal health record. It is not the complete legal health record.[facility]
--- OUTSIDE RECORDS SUMMARY | 2025-03-18 19:31 | XMS_ITS | Encounter Summary ---
Author Organization [facility] Address [address] [facility] [address] [place] [address] Phone Care Team Providers Care Long Distance Billing Operator Name Role Phone Marion Mattson MD Unavailable [phone] Kelvin Acosta MD Unavailable [phone] Nato Martinez MD Primary Care Provider Yessica Hernandes MD Unavailable Karen Yen MD Unavailable [phone] Nato Martinez MD Unavailable [phone] Encounter Details Date Type Department Care Team (Late st Contact Info) Description 03/03/2025 Telephone [facility] Main [address] [place] [address] Nato Martinez MD [address] [facility], [address] [place] [address] [email or web address] Social History Tobacco Use Types Packs/Day Years [...] filedocumented in this encounter Additional Health Concerns Assessment Noted Time PHQ-2 Depression Total Score: 0 01/24/20 23 10:33 AM EDT documented as of this encounter Care Teams Long Distance Billing Operator Relationship Specialty Start Date End Date Nato Martinez MD [address] [facility], [address] [place] [address] PCP - General Internal Medicine 05/13/17 Marion Mattson MD [address] [facility], [address] [place] [address] [email or web address] Historical LMR Provider 02/14/17 Kelvin Acosta MD [address] [place] [address] [email or web address] Historical LMR Provider 02/14/17 Yessica Hernandes MD [address] [address] [email or web address] Obstetrics and Gynecology 09/02/17 Karen Yen MD [address] [place] [address] Medical Oncology 09/02/17 Nato Martinez MD [address] [place] [address], [address] [place] [address] [email or web address] Insurance Assigned Provider 08/01/23 documented as of this encounter Additional Source Comments The information contained in this document represents components of the legal health record. It is not the complete legal health record.[facility]
--- OUTSIDE RECORDS SUMMARY | 2025-03-18 19:31 | XMS_ITS | Encounter Summary ---
Author Organization [facility] Address [address] [place] [address] Care Team Providers Care Farm Loan Inspector Name Role Phone Nato Martinez MD Primary Care Provider [phone] Encounter Details Date Type Department Care Team (Late st Contact Info) Description 09/23/2016 Orders Only [facility] Building [address] [place] [address] Caro Esposito MD [address] [place] [id number] Social History Tobacco Use Types Packs/Day Years Used Date Smoking Tobacco: Never Assessed Comments Unknown Sex and Gender Information Value Date Recorded Sex Assigned at Female 04/02/2020 12:30 PM EST Legal Sex Female 10:11 AM EDT Gender Identity Female 09/16/2017 4:15 PM EDT Sexual Orientation Straight 04/02/2020 12 :30 PM EST documented as of this encounter Plan of Treatment Upcoming Encounters Date Type Department Care Team (Late st Contact Info) Description 04/10/2025 10:00 AM EST Office Visit [facility] [address] [place] [address] Builder Beam: Caro Hansen MD [address] [place] [phone] 06/01/2025 4:40 PM EST Follow-Up [facility] [address] [place] [address] Builder Beam: Dio James MD [address] [place] [address] 08/21/2025 10:00 AM EDT Office Visit [facility] [address] [place] [phone] Builder Beam: Caro Hansen MD [address] [place] [address] [phone] documented as of this encounter Visit Diagnoses Not on filedocumented in this encounter Care Teams Farm Loan Inspector Relationship Specialty Start Date End Date Nato Martinez MD [address] [place] [address], [address] [place] [address] PCP - General 11/13/16 documented as of this encounter
--- OUTSIDE RECORDS SUMMARY | 2025-03-18 19:31 | XMS_ITS | Clinical Summary ---
Author Organization [facility] Address [address] [place] [address] Care Team Providers Care Ethical Hacker Name Role Phone Nato Martinez Primary Care Provider [phone] Allergies Active Allergy Reactions Criticality Noted Date Comments Amoxicillin-Pot Clavulanate Diarrhea/GI Upset 0 08/26/2017 Sulfamethoxazole W-Trimethoprim Urticarial Rash 08/26/2017 Clindamycin Diarrhea 08/26/2017 Copaxone Urticarial Rash 08/26/2017 Levaquin 08/26/2017 Oxycodone Pruritus (itching) 08/26/2017 Vancomycin Urticarial Rash 08/26/2017 Medications No known medications Social History Tobacco Use Types Packs/Day Years Used Date Smoking Tobacco: Never Assessed Comments Unknown Sex and Gender Information Value Date Recorded Sex Assigned at Not on file Legal Sex Female 12:18 PM EDT Gender Identity Not on file Sexual Orientation Not on file Plan of Treatment Health Maintenance Due Date Last Done Comments Hepatitis C Screening 1955 DTaP/Tdap/Td (1 - Tdap) 1975 Mammogram/Breast Imaging 1997 Pneumococcal 50+ years (1 of 1 - PCV) 2007 Zoster (Shingrix) (1 of 2) 2007 Bone Density 2022 COVID-19 Vaccine ( - 2024-2 6 season) 2024 Influenza (#1) 2024 03/12/2017 RSV (1 - 1-dose 75+ series) 2032 HPV Vaccine (No Doses Required) Completed Hep A Aged Out No longer eligi ble based on patient's age to complete this topic Hep B Aged Out No longer eligi ble based on patient's age to complete this topic Hib Aged Out No longer eligi ble based on patient's age to complete this topic Meningococcal ACWY Aged Out No longer eligible based on patient's age to complete this topic Pap Smear Discontinued Zoster (Zostavax) Discontinued Insurance MEDICARE PART B [facility] FFS FEDERAL Care Teams Ethical Hacker Relationship Specialty Start Date End Date Nato Martinez [address] [place] [address] PCP - General Internal Medicine 07/22/17
--- OUTSIDE RECORDS SUMMARY | 2025-03-18 19:31 | XMS_ITS | Encounter Summary ---
Author Organization [facility] Address [facility] [email or web address] [facility] [address] [place] [address] Phone Care Team Providers Care Automotive Glazier Name Role Phone Marion Mattson MD Unavailable Kelvin Acosta MD Unavailable [phone] Nato Martinez MD Unavailable [phone] Qi Velez MD Unavailable [phone] Papa Gillespie MD Unavailable [phone] Nato Martinez MD Primary Care Provider [phone] Yessica Hernandes MD Unavailable Karen Yen MD Unavailable Nato Martinez MD Unavailable [phone] Encounter Details Date Type Department Care Team (Late st Contact Info) Description 05/15/2017 Procedure Pass [address] [place] [address] Social History Tobacco Use Types Packs/Day Years [...] documented as of this encounter Care Teams Automotive Glazier Relationship Specialty Start Date End Date Nato Martinez MD [address] [place] [address], [address] [place] [address] PCP - General Internal Medicine 05/13/17 Marion Mattson MD [address] [place] [address], [facility] [address] [place] [address] [email or web address] Historical LMR Provider 02/14/17 Kelvin Acosta MD [address] [place] [address] [email or web address] Historical LMR Provider 02/14/17 Nato Martinez MD [address] [place] [address], [address] [place] [address] Historical LMR Provider 02/14/17 09/01/17 Qi Velez MD [address] [place] [address] Historical LMR Provider 02/14/17 2 Papa Gillespie MD [address] [facility], [address] [place] [address] [email or web address] Historical LMR Provider 02/14/17 05/04/21 Yessica Hernandes MD [address] [place] [address] [email or web address] [email or web address] and Gynecology 09/02/17 Karen Yen MD [address] [place] [address] [email or web address] Medical Oncology 09/02/17 Nato Martinez MD [address] [facility], [address] [place] [address] [email or web address] Insurance Assigned Provider 08/01/23 documented as of this encounter Additional Source Comments The information contained in this document represents components of the legal health record. It is not the complete legal health record.[facility]
--- OUTSIDE RECORDS SUMMARY | 2025-03-18 19:32 | XMS_ITS | Clinical Summary ---
Author Organization Formerly [facility] Address [address] [place] [address] [place] [id number] Phone Care Team Providers Care Zoning Technician Name Role Phone Marion Mattson MD Unavailable Kelvin Acosta MD Unavailable [phone] Elizabeth Martinez MD Primary Care Provider Yessica Hernandes MD Unavailable Karen Yen MD Unavailable Elizabeth Martinez MD Unavailable [phone] Allergies Active Allergy Reactions Criticality Noted Date Comments Amoxicillin-Pot Clavulanate GI Upset Low 05/14/2017 Varenicline Other (See Comments) 04/29/2019 Vivid dreams and nightmares Clindamycin Diarrhea Low 11/04/2011 Doxycycline Monohydrate GI Upset High 07/22/2022 SEVERE GERD Glatiramer Hives,Rash Medium 05/14/2017 Copaxone Levofloxacin Other (See Comments) Medium 05/05/2017 tendonitis Oxycodone Itching Low 05/14/2017 Prednisone 05/02/2020 Elevates BP Sulfa (Sulfonamide Antibiotics) 03/29/2024 Sulfamethoxazole-Trimet hoprim Anaphylaxis,Hives High 05/14/2017 Tramadol Nausea and/or Vomiting 09/16/2019 Tried August 2019, took 1 dose Vancomycin Hives High 08/26/2017 Medications albuterol 90 mcg/actuation inhaler Inhale 2 puffs into the lungs as needed. 04/29/19 17 Active polyethylene glycol (MIRALAX) 17 gram/dose powder 2 tbsp given per dose. Takes 2x per week. Active b complex vitamins tablet Take by mouth daily. Active EPINEPHrine 0.3 mg/0.3 mL auto-injector Inject 0.3 mg under the skin as needed. 02/09/20 Active baclofen (LIORESAL) 20 MG tablet Take 30 mg by mouth 2 (two) times a day. Takes 50mg 7pm and 11pm 07/14/19 20 Active HIZENTRA 2 gram/10 mL (20 %) Soln 12 grm subQ infusion Q 2weeks 08/30/19 20 Active AEROCHAMBER PLUS FLOW-VU Spcr as directed. 04/05/20 20 Active aspirin 81 mg chewable tablet Take 1 tablet (81 mg total) by mouth daily. 30 tablet 5 05/04/19 21 Active primidone (MYSOLINE) 50 MG tablet Take 25 mg by mouth. 04/28/19 24 Active cloNIDine HCL (CATAPRES) 0.1 MG tabletIndication s:Essential hypertension TAKE ONE TABLET BY MOUTH EVERY MORNING 90 tablet 3 03/31/20 24 Active cloNIDine HCL (CATAPRES) 0.2 MG tablet TAKE ONE TABLET BY MOUTH EVERY DAY IN THE EVENING 90 tablet 3 04/18/20 24 Active esomeprazole (NEXIUM) 20 MG capsuleIndicatio ns:Gastroesophag eal reflux disease TAKE ONE CAPSULE BY MOUTH EVERY DAY BEFORE BREAKFAST. 90 capsule 3 06/20/19 25 Active KESIMPTA PEN 20 mg/0.4 mL PnIj Inject 20 mg under the skin every 28 days. 03/28/20 24 Active metoprolol succinate (TOPROL-XL) 50 MG 24 hr tabletIndication s:Atherosclerosi s of [place] coronary artery of [place] heart with stable angina pectoris Take 1 tablet (50 mg total) by mouth daily. 90 tablet 3 07/19/19 25 Active isosorbide mononitrate (IMDUR) 30 MG 24 hr tabletIndication s:Essential hypertension,Ath erosclerosis of coronary artery of [place] heart with stable angina pectoris, unspecified vessel or lesion type TAKE ONE TABLET BY MOUTH EVERY DAY 90 tablet 3 01/24/20 25 Active hyoscyamine (ANASPAZ,LEVSIN) 0.125 mg tablet TAKE ONE TABLET BY MOUTH DAILY. 90 tablet 3 01/24/20 25 Active atorvastatin (LIPITOR) 80 MG tablet TAKE 1/2 TABLET (40 MG) BY MOUTH DAILY. 45 tablet 02/21/20 25 Active amLODIPine (NORVASC) 2.5 MG tabletIndication s:Hypertensive disorder TAKE 1 TABLET (2.5 MG TOTAL) BY MOUTH 2 (TWO) TIMES A DAY. 180 tablet 03/13/20 25 Active armodafinil (NUVIGIL) 50 mg tablet Take 100 mg by mouth daily. Active atorvastatin (LIPITOR) 80 MG tablet Take 0.5 tablets (40 mg total) by mouth daily. 45 tablet 3 01/14/20 24 025 Discontinued modafiniL (PROVIGIL) 100 MG tablet Take 1 tablet by mouth daily as needed. 12/10/19 24 025 Discontinued(No longer taking) amLODIPine (NORVASC) 2.5 MG tabletIndication s:Hypertensive disorder TAKE 1 TABLET (2.5 MG TOTAL) BY MOUTH 2 (TWO) TIMES A DAY. 180 tablet 3 02/15/20 24 025 Discontinued Active Problems Problem Noted Date Diagnosed Date Left arm pain 03/17/2025 Overview (03/17/2025): Needs chest CT, start eval for thoracic outlet IPMN (intraductal papillary mucinous neoplasm) 1 05/30/2023 Overview (03/29/2024): Seen on abd MRI Fall 2023 Recheck 2 yrs Morning stiffness of joints 03/17/2024 Assessment & Plan (03/17/2024 5:19 PM EST): AM stiffness now 1 hour off MS therapy ocrelizumab since 02/2023 but clinical picture c/b co-morbid neurologic disease. Updated labs; can trial return to hydroxychloroquine versus methotrexate pending lab findings and clinical course. At high risk for adverse medication event 2023 Assessment & Plan (03/17/2024 5:17 PM EST): Baseline labs prior to possible methotrexate versus hydroxychloroquine Osteopenia of multiple sites 01/28/2024 Assessment & Plan (06/28/2024 1:45 PM EST): I offered to request biochemical workup for secondary causes of osteopenia again but the patient refused she states that she rather follow-up with her medical office technologist for osteopenia management. Assessment & Plan (01/28/2024 1:47 PM EDT): The patient was diagnosed with osteopenia on 09/09/2023 based on DEXA scan. She has a high FRAX score for major osteoporotic fracture 24% and for hip fracture 8.5% so she will benefit from antiresorptive medications. Her risk factors for osteoporosis include family history, age, menopause, tobacco use, long-term use of corticosteroids and proton pump inhibitors. She was prescribed Arimidex but has not used it. She did have fracture as a child but no other confirmed fractures. It is unclear if she has had any decrease in height because were not able to measure her. She has not been treated with antiresorptive medications. Presently she does not take any calcium or vitamin D supplements but vitamin D levels are in the low reference range. Furthermore 24-hour urine calcium output was in the normal reference range and indicating that she is getting adequate calcium in her diet. At this point I will obtain biochemical workup for evaluation of other secondary causes of osteoporosis. I did review with the patient that because she has had radiation therapy she is not a candidate for anabolic hormones such as Forteo or Tymlos. She could potentially use antiresorptive medications such as the bisphosphonates or rank ligand antagonist such as Prolia. I have given the patient information to read as indicated below. The antiresorptive medications are the bisphosphonates and rank ligand antagonists. The bisphosphonates come in oral form and IV form. The oral form is alendronate, this is a 70 mg tablet that is taken once a week with water on an empty stomach. The patient must not eat for 30 minutes and remain upright in a sitting or standing position. This medication may be associated with reflux. This medication can be used up to 5 years and at that point we reevaluate. If the bone density has not improved we can switch to another medication or continue the same medications for another 5 years. If there is improvement in bone mineral density then we can do a drug holiday. The IV form is called zoledronic acid/ Reclast. This is administered in the hospital as a yearly infusion. This medication can be used up to 3 years. Again this medication also can be repeated for another 3 years if there is insufficient bone mineral density or the medication could be switch for something else. If good bone improvement then we can consider a drug holiday. It is associated with flulike symptoms such as muscle aches, headaches, etc. The other antiresorptive medication is rank ligand antagonist such as Prolia/ denosumab. This medication is administered subcutaneously in the office every 6 months. With this medication you have to have adequate calcium intake otherwise hypocalcemia may develop. Furthermore the medication must not be missed there is a 2-week window in which the patient must have the injection. If the patient misses the injection then there will be rapid decrease in bone mineral density. Furthermore if the patient wants to stop the medication that we will have to take alendronate for period of 1 year. If the patient does not take any medications at all after stopping Prolia then they will return to their original bone mineral density within 12 months. All of these medications are associated with atypical femur fracture and jaw necrosis after prolonged use. Prolonged use is considered to be approximately 5 years. The risk of atypical femur fracture approximately 0.8% and for jaw necrosis is approximately 0.1%. This can translate to up to 5 people out of 10,000. There are other medications such as anabolic hormones. These include Forteo and Tymlos which are basically the same medication but different brands. These medications are injected by the patient on a daily basis at nighttime right before going to bed. This medication is good for period of 2 years. It is administered in the evening because it could be associated with dizziness. The last medication is Evenity which is administered in the office on a monthly basis for period of 1 year. This medication cannot be used if the patient had a myocardial infarction within the last 6 months. The anabolic hormones are very expensive and normally for a patient who has not use any of these medications they usually get one of the antiresorptive medications such as alendronate, zoledronic acid or Prolia. Hypercortisolemia 12/16/2023 Overview (03/29/2024): Extensive serologic workup in progress, also had MRI of the abdomen. Assessment & Plan (06/28/2024 1:46 PM EST): This patient was extensively worked up for hair loss. In the process he was found to have elevated cortisol. As indicated in the HPI this was also extensively worked up. And she had borderline dexamethasone suppression test which she failed. Also 1 elevated salivary cortisol. Other salivary cortisol 24 urine cortisol studies were within the normal reference range. Pituitary MRI did not show tumors. Adrenal MRI shows mild thickening of the adrenal glands. She was seen by specialist at [facility] who felt that she does not have hypercortisolemia and does not report command further testing. I will not be working this up further and she will not get a follow-up appointment for this. She states that she will follow-up with dermatology. As for episodes of subjective hypoglycemia because we do not have any evidence of this I cannot work this up further when there is no documented hypoglycemia which I pointed out to her. Assessment & Plan (03/17/2024 12:48 PM EST): The patient does have hypercholesterolemia she fell dexamethasone suppression test so far salivary cortisol and 24-hour urine cortisol have been in the reference range. Serum cortisol varies from normal reference range to mildly above the reference range. MRI shows that she has thickening of the left adrenal gland which likely is responsible for the mild elevation in cortisol that we see on occasions and possibly why she failed dexamethasone suppression test. I did review complications associated with hypercortisolemia and Annabel syndrome and really she is not having any adverse effects. She has well-controlled hypertension she does have osteopenia. She is not diabetic she only complains of hair loss bruising and mild hirsutism. She has cognitive impairment but attributes this to multiple sclerosis. In my impression she is not a candidate for surgery or medical management. My suggestion is for observation. At the patient feels that she may want to see a Annabel specialist in [place] and that may be helpful to relieve her concerns. Assessment & Plan (01/13/2024 9:58 AM EDT): She does have hypercortisolemia cortisol was elevated at 22 when she fell dexamethasone suppression test the cortisol was 2. She was also found to have elevated testosterone she suffers from hypertension. She does have osteopenia. She has cardiac conditions and myalgias that may be related to hypercortisolemia. At this point I did inform her that ACTH level is on the low side of normal DHEA-S is not elevated so it does not seem that this is pituitary gland I would assume that this is adrenal. She did have a discussion with me about using Solu-Medrol over a year ago. I informed her that synthetic cortisol was not measured in the assay. Furthermore if she were using exogenous synthetic steroids the cortisol level would have been suppressed not elevated. So this is not related to the current condition. At this point I will refer her for MRI of the abdomen for evaluation of adrenal tumors. Assessment & Plan (12/16/2023 9:18 AM EDT): The patient's dexamethasone suppression test did not suppress cortisol. She appears to have hypercortisolemia so we have to check a baseline cortisol fasting and also ACTH levels. Will do salivary cortisol in the evening x 3 on 3 separate days and obtain 24-hour urine cortisol. Imaging will be done depending on results. Elevated testosterone level in female 09/11/2023 Assessment & Plan (12/16/2023 9:17 AM EDT): Rule out for PCOS and congenital adrenal hyperplasia found to have hypercortisolemia which will require further workup. Assessment & Plan (09/11/2023 9:22 AM EDT): Was found to have elevated testosterone will workup for congenital adrenal hyperplasia, Annabel syndrome, PCOS. Lab work must be done fasting. She must make sure to take dexamethasone the night before she has lab work done in the morning fasting. Left foot pain 09/10/2023 Assessment & Plan (09/10/2023 12:39 PM EDT): Plain film from 09/04/23 reviewed and reassuring; recommend dedicated podiatry evaluation if severe pain persists despite topical diclofenac. No clinical e/o active inflammatory arthritis affecting joints of foot or toes. Left-sided low back pain without sciatica 2023 Assessment & Plan (09/10/2023 12:41 PM EDT): Recently worsened in context of increased activity level; mgmt deferred to PCP given absence of underlying inflammatory arthritis. Menopausal and postmenopausal disorder Assessment & Plan (01/13/2024 9:44 AM EDT): She is due to see me for management of osteopenia 24-hour urine calcium output was in the reference range indicating that she is getting adequate calcium intake. Assessment & Plan (09/11/2023 9:46 AM EDT): On medical history I states that the patient has osteoporosis. She actually had DEXA scan done on 09/09/2023 was told that it would take 2 weeks to repeat the study. So we will obtain it for the follow-up visit. Assessment & Plan (07/16/2023 12:17 PM EDT): The patient is on Arimidex, she is postmenopausal she should have DXA scan for evaluation of osteopenia/osteoporosis this has been requested. I informed the patient that the radiology department is 8 months behind so she should contact them today and try to schedule this. She can also place herself on the cancellation list to get it done sooner. Atypical chest pain 06/29/2023 Overview (06/29/2023): She underwent left heart catheterization with Dr. Calderón last month, negative for coronary disease/ She will be seeking further care with the [facility] cardiology group History of rheumatoid arthritis 05/12/2023 Overview (03/17/2024): anti-CCP neg 03/2020; RF and anti-CCP both neg 08/2023 Patient reports h/o rheumatoid arthritis dx'd 1986 but no DMARDs other than hydroxychloroquine (dc'd 2018 for question maculopathy) Assessment & Plan (03/17/2024 5:23 PM EST): There remains no specific objective e/o active rheumatoid arthritis though noted pattern of worsened joint pain and stiffness since 02/2023 dc of ocrelizumab. Empiric therapy with methotrexate or hydroxychloroquine pending updated lab findings as well as review of right hip CT. Assessment & Plan (05/12/2023 12:53 PM EST): Patient amenable to obtaining updated rheumatoid arthritis serologies in future / at her discretion. Will resume hydroxychloroquine or other DMARD if there is evidence of active disease in the coming months. Noted that ocrelizumab, which she is no longer taking as of 02/2023 due to recurrent breast ca, can lower sed rate; I d/w patient and her Jaspal today that rheumatoid arthritis serologies are more useful than sed rate regardless. Ductal carcinoma in situ (DCIS) of right breast 04/03/2023 Overview (04/03/2023): March 2023 Awaiting L breast biposy Assessment & Plan (05/12/2023 10:48 AM EST): This has returned but the patient is not wanting any surgical intervention Vaginal bleeding 04/03/2023 Overview (04/03/2023): Awaiting biopsy and D&C Concern about appearance of breast 01/23/2023 Overview (01/23/2023): She reported some nipple changes and discharge December 2022. Being evaluated by [facility], diagnostic mammogram and ultrasound ordered. Left breast normal by my exam in office Enlarged lymph node in neck 11/14/2022 Overview (11/14/2022): Noted August 2022, continued symptoms in October. EBV, strep, COVID test negative. CT ordered due to persistence. Breathing-related sleep disorder 11/07/2022 11/07/2022 Disorder of thyroid 11/07/2022 11/07/2022 Diverticulitis 11/07/2022 11/07/2022 Herniated lumbar intervertebral disc 11/07/2022 11/07/2022 Hypogammaglobulinemia 11/07/2022 11/07/2022 Menopausal symptom 11/07/2022 11/07/2022 Osteoporosis 11/07/2022 11/07/2022 Trochanteric bursitis, right hip 11/06/2022 Overview (05/12/2023): MRI right hip ([facility]) 2013 lytic lesion right femoral neck CT abd / pelvis 02/2022 Bones/Soft Tissues: No concerning sclerotic or lytic lesions Plain film right hip 01/2023 joint space preserved Assessment & Plan (03/17/2024 5:21 PM EST): Progressively severe sxs in the past 1 year but suspect secondary to mechanical cause > active inflammatory disease in this wheelchair-bound patient with progressive MS. CT given chronicity of sxs with unrevealing plain film. Assessment & Plan (05/12/2023 12:47 PM EST): Steroid injection today as detailed in procedure note; sxs have been severe enough to interrupt sleep Assessment & Plan (11/06/2022 2:14 PM EDT): R > L on exam today; patient declined therapeutic steroid injection(s). For re-evaluation and possibly updated dedicated imaging pending clinical course. Cellulitis of trunk 06/19/2022 Bulbar weakness 10/30/2020 11/07/2022 Neuromuscular respiratory weakness 10/30/2020 11/07/2022 Overview (11/07/2022): Decreased MIPs and MEPS in the setting of MS Cough intact Voice weak Oropharyngeal dysphagia No aspiration Last Assessment & Plan: Decreased MIPs and MEPS in the setting of MS; Cough intact; Voice weak; Oropharyngeal dysphagia; No aspiration. Ordered PFTS sitting and supine with MIPS/MEPS at [facility]. Hypersomnia 10/30/2020 11/07/2022 Overview (11/07/2022): Severe with sleep attacks No cataplexy or [...] sleep disordered breathing then re: start modfanil/armodafinil. Atherosclerosis of coronary artery of [place] heart with stable angina pectoris 10/05/2020 Overview (10/05/2020): Intermittent anginal symptoms, nuclear stress test in 2020 shows a very small reversible defect. We will add Imdur to her regimen Assessment & Plan (07/09/2021 8:34 AM EDT): This patient actually does not have documented coronary disease by catheterization Assessment & Plan (12/21/2020 8:42 AM EDT): This patient is not known to have coronary artery disease. Angina pectoris 06/11/2020 Assessment & Plan (05/12/2023 10:48 AM EST): As mentioned we are going to perform diagnostic catheterization for her symptoms Assessment & Plan (12/21/2020 8:42 AM EDT): Well-controlled on multiple medications and noncardiac Assessment & Plan (06/11/2020 8:24 AM EST): As mentioned she is very concerned about this I am ordering her a pharmacologic stress test Varicose veins during , antepartum 05/28 Assessment & Plan (10/01/2022 7:47 AM EDT): Asymptomatic at this time. Assessment & Plan (12/21/2020 8:42 AM EDT): Asymptomatic Assessment & Plan (07/16/2020 10:14 AM EDT): A venous reflux study was done showing no evidence of reflux TIA (transient ischemic attack) 05/02/2020 Overview (03/17/2025): No recurrent sx Assessment & Plan (07/09/2021 8:34 AM EDT): No recurrent TIAs she has no carotid artery disease and I believe does not have af Assessment & Plan (07/16/2020 10:14 AM EDT): None recurrent Assessment & Plan (05/03/2020 12:03 AM EST): Had her first TIA in 2008. Has had a couple more TIAs since early 2019 and had some left face and left arm numbness yesterday. This is completely resolved and she is back at her compromised baseline secondary to MS. Her neurologist recommended she come to the hospital for expedited work-up. She reports that she has not been on aspirin or statin, but it is not clear why. Lipid panel in March with slightly elevated LDL. Additionally, she states that she has previously had a Holter monitor and when she read the report it stated 2 episodes of atrial fibrillation. She seemed somewhat vague on when this was. I will have cardiology see her in consultation as she follows with Dr. Calderón as an outpatient. Esophageal spasm 04/13/2020 Assessment & Plan (04/17/2020 6:10 PM EST): Not a candidate for NSAIDs. If worsening symptoms may need to consider speech and swallow evaluation. Sjogren's syndrome with keratoconjunctivitis sic ca 04/05/2020 Overview (11/06/2022): Per pt, was dx after borderline pos lip biopsy [address] [facility]. SSA/SSB March 2020 negative. Dec 2021: Sx continue, has new rheum appt next month Assessment & Plan (11/06/2022 2:07 PM EDT): D/w patient that elevated sed rate is non-specific for Sjogren's; both armodafinil and baclofen may be contributing to oral sicca. Can re-visit potential utility of repeat SSA/SSB with next routine lab draw on f/u. 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 Assessment & Plan (01/13/2024 9:44 AM EDT): She does not require thyroxine medication at this point she is due for repeat thyroid function studies by 07/22/2024. Assessment & Plan (12/16/2023 9:16 AM EDT): Thyroid function studies previous in the reference range does not require thyroxine continue monitoring thyroid function studies yearly. Assessment & Plan (09/11/2023 9:18 AM EDT): TSH in the reference range continue to monitor TSH with reflex T4 yearly. Assessment & Plan (07/16/2023 12:19 PM EDT): She has confirmed Alexia's thyroiditis thyroid gland has been homogeneous as no thyroid nodules has not been enlarged. At this point we will request a repeat TSH with reflex free T4. Assessment & Plan (10/01/2022 7:47 AM EDT): Clinically euthyroid at this time Assessment & Plan (04/24/2020 8:32 AM EST): The increase in beta-ruth will actually help in treatment for this disorder Assessment & Plan (04/17/2020 6:04 PM EST): Periodic checkup as instructed by center lead consultant. Assessment & Plan (02/08/2019 10:21 AM EDT): The patient has Alexia's thyroiditis she is prone to develop hypothyroidism in the future the incidence is 2.5 %/year. At this point no she can do is avoid stress, physical illness and she can take selenium 200 mcg that has been known to decrease TPO antibodies but it has not been shown to prevent thyroid or dysfunction. Hair loss 01/10/2019 Assessment & Plan (01/13/2024 9:45 AM EDT): She was found to have elevated testosterone and hypercortisolemia so this may be behind hair loss. Other biochemical workup was in the reference range. Assessment & Plan (12/16/2023 9:17 AM EDT): Found to have elevated testosterone. Workout ruled out congenital adrenal hyperplasia. Also PCOS. Found to have hypercortisolemia that requires further workup. Assessment & Plan (09/11/2023 9:20 AM EDT): Vitamins and minerals in the reference range but found to have elevated free testosterone. Will evaluate for [place] syndrome, congenital adrenal hyperplasia, PCOS. Will proceed with biochemical workup and if any other abnormalities will consider imaging studies. Assessment & Plan (07/16/2023 12:18 PM EDT): She has been complaining of hair loss for a while. She had initial workup but it was not extensive. At this point will request extensive workup from endocrine perspective for the most part. There is many reasons for hair loss and if we do not find anything associated with hair loss and this workup then I would suggest she see a arc air operator for further evaluation. Assessment & Plan (02/08/2019 10:23 AM EDT): I evaluated her for thyroid dysfunction such as hyperthyroidism for hair loss but she is chemically euthyroid so this is not the etiology for hair loss. Sometimes taking zinc supplement may be helpful for hair loss. Assessment & Plan (01/10/2019 10:12 AM EDT): Patient has noticed increased hair loss of course she is on medications that can result in this problem. I think that since I am approaching this from an endocrine point of view what I would like to do is check thyroid function studies to see if she is either hyper or hypothyroid which can result in hair loss especially because of a history of thyroiditis. I also would like to check for zinc deficiency which can be associated with hair loss. Gastroesophageal reflux disease 10/29/2018 Assessment & Plan (06/11/2020 8:25 AM EST): If her stress test is normal this could definitely be the diagnosis Osteoarthritis of spine with radiculopathy, lumb ar region 10/29/2018 Overview (10/29/2018): Refer to [facility] for possible epidural steroid injection. Chronic respiratory failure 06/01/2018 Assessment & Plan (04/24/2020 8:32 AM EST): This is actually been stable Assessment & Plan (03/05/2020 11:52 AM EST): This seems to be under good control Assessment & Plan (10/17/2019 11:19 AM EDT): More than likely due to diaphragmatic dysfunction Assessment & Plan (04/29/2019 3:03 PM EST): Continue noninvasive ventilation per Dr. Scanlon. Repeat PFT, MIP MIP MVV next year. Will skip ABG next year given stability and patient preference, and if PFT revealed progressive impairments, we would then repeat PFT at a shorter interval with ABG. Most recent study are fairly stable. Assessment & Plan (06/01/2018 9:31 PM EST): Continue with Astral device, with setting adjustments per Dr. Scanlon's expertise. I will have my office staff request recent PFT performed 03/2018 at [facility], but I do note the absence of hypercapnea on prior ABG (was not drawn 6 weeks ago as requires topical anesthesia prior to puncture). As long as she remains clinically stable, would likely plan annual PFT, MIP/MEP/MVV, and ABG (will have to discuss with respiratory lab the use of topical anesthetic). We discussed use, indications for and management of tracheostomy and invasive ventilation. She does understand that this may become indicated down the road if her respiratory failure were to become unmanageable with NIPPV, or if the progression of significant bulbar symptoms made use of NIPPV unsafe and/or ineffective. Per below, will attempt to symptomatically improve her cough to enhance her tolerance of her Astral device. Allergic asthma, mild intermittent, uncomplicate d 06/01/2018 Assessment & Plan (04/29/2019 3:03 PM EST): Will resume Arnuity. If not covered, another low-dose inhaled corticosteroid could be tried. We will repeat PFT next year. She is up to date with the influenza vaccine this season. Assessment & Plan (06/01/2018 9:46 PM EST): Given cough, will start a trial of low-dose ICS for the next month. Will plan repeat pulmonary function testing in March, and obtain results from [facility] performed 2 months ago. Acute bursitis of right shoulder 05/25/2017 Polyarthralgia 05/25/2017 Overview (11/06/2022): anti-CCP neg 03/2020 Patient reports h/o rheumatoid arthritis dx'd 1986 but no DMARDs other than hydroxychloroquine Assessment & Plan (09/10/2023 12:36 PM EDT): No small joint synovitis on exam today; suspect at least some neuropathic component of R > L finger joint pain, most prominent in the 1st finger joints. Worsening of joint pain with recent increase in activities such as gardening is not unexpected and is not specific for underlying / active inflammatory arthritis. Trial topical diclofenac; patient defers updated rheumatoid arthritis serologies and baseline hand films today but we will re-visit these investigations on follow-up. Assessment & Plan (11/06/2022 2:03 PM EDT): No specific objective evidence to confirm active rheumatoid arthritis today - d/w patient at length. I suspect some component of neuropathic pain in context of co-morbid MS, with hyperalgesia of multiple small joints on exam today. Discussed but deferred updated labs. Patient will call for expedited evaluation and hopefully diagnostic arthrocentesis if / when she has recurrence of any acutely swollen joint(s) in the absence of trauma. There is no current indication to add methotrexate or other DMARD. Assessment & Plan (04/17/2020 6:07 PM EST): I requested a new set of lab [...] if necessary at bedtime x 3 weeks. Tear of right glenoid labrum 05/24/2017 Overview (05/24/2017): Dx Apr 2017 on MRI Need for prophylaxis against urinary tract infec tion 05/05/2017 Penaloza's esophagus 05/05/2017 Assessment & Plan (04/17/2020 6:09 PM EST): Close follow-up with flower arranger as scheduled. 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 De Los Santos. Menopausal state 05/05/2017 Syrinx of spinal cord 05/05/2017 Retention of urine 05/05/2017 Spasm 05/05/2017 Fatigue 05/16/2016 11/07/2022 Generalized muscle weakness 03/07/201510/25 Abnormal gait 12/12/2014 11/07/2022 Bowel incontinence 10/31/2013 11/07/2022 Osteoarthritis of hand 10/12/2013 CVID (common variable immunodeficiency) 04/27/19 14 Overview (01/02/2022): on [facility], Dr. De Los Santos Gets IVIG every 2 weeks. Ataxia 11/04/2011 Overview (06/17/2014): Ataxia Hypertensive disorder 11/04/2011 Overview (06/28/2020): She has had labile blood pressures, has had her medications adjusted multiple times. As of June 2020, overall excursions are improving Assessment & Plan (06/29/2023 10:21 AM EST): Blood pressures remain labile, she is looking for a new cardiology group Assessment & Plan (05/12/2023 10:48 AM EST): Perfectly controlled to the guidelines Assessment & Plan (10/01/2022 7:46 AM EDT): Completely stable and controlled without significant fluctuations on the above-mentioned medications which we will just leave alone. She has no cardiorespiratory symptoms. Assessment & Plan (07/09/2021 8:34 AM EDT): As mentioned heart rate and blood pressures have been basically normal this patient does check them on a regular basis. We will leave all of her medications alone as it is Assessment & Plan (07/16/2020 10:13 AM EDT): Well-controlled on Norvasc and a good dose of metoprolol I asked her to cut back on the metoprolol if this makes her feel much less fatigued we will just leave her on a smaller dose if not we will go back as this is been controlling her blood pressure well I will see her again in 3 months Assessment & Plan (10/17/2019 11:19 AM EDT): As mentioned we are going to add metoprolol 25 mg long-acting in the evening time I will follow-up with her after the above-mentioned examinations are performed which will include an echo renal artery duplex and carotid duplex Breast cancer 11/04/2011 Cancer Staging:Clinical: Unsigned Overview (03/17/2025): Dr Alcaraz at [facility] manages. Currently monitor, slow growing, no surgery planned Multiple sclerosis Overview (11/06/2022): moderate progressive, followed at [facility], Dr. Esposito. Wheelchair bound since 2014 Maintained on Ocrevus, Q6 months. To restart September: Having more resp issues, may need to adjust her resp support. June 2020: Has more autonomic issues, blood pressure medication regimen is being adjusted by cardiology. She has significant sleep issues and daytime sleepiness. July 2020: Refer to PT. She is also restarting meditation and councelling. Assessment & Plan (04/17/2020 6:08 PM EST): Continue close follow-up with treating neurologist at [facility] in [place] as scheduled. Assessment & Plan (03/05/2020 11:52 AM EST): This is obviously a major issue for this patient and she gets high level ongoing therapy for Assessment & Plan (10/17/2019 11:19 AM EDT): She tells me she has had MS for at least a few decades taking care of at [facility] Assessment & Plan (05/14/2017 2:41 PM EST): She is using BIPAP at night, and per Jennifer her chronic resp failure is worsening. Her testing for new equipment is ongoing. Personal history of systemic lupus erythematosus (SLE) Overview (11/06/2022): dx'd 1986 by neurologist / medical office technologist hydroxychloroquine dc'd 2019 after 25 yrs due to ? maculopathy Assessment & Plan (11/06/2022 2:11 PM EDT): No current specific objective evidence to confirm active SLE despite dc of hydroxychloroquine; d/w patient at length that positive TAMARA is non-specific and could certainly reflect her established MS dx. Dedicated ENAs and complements deferred today / can be obtained when clinically indicated. Certainly there is no clear current indication for potent immunosuppression, particularly given co-morbid CVID. Neurogenic bladder Recurrent urinary tract infection Assessment & Plan (09/11/2021 4:08 PM EDT): Reports dysuria onset 3 days ago. State feels just like previous UTI. UA in our office is unremarkable. She reports history of having normal UA initially but positive upon repeat. Agree with treating her symptoms with abx given that she is high risk for developing complicated UTI. She has tolerated keflex previously -will have her start keflex 500mg Bid x7 days for suspected UTI. S/P colonoscopy Syrinx Overview (04/14/2017): T spine Ulcer Essential hypertension Overview (10/05/2020): Worsening in August 2019. May be secondary [...] nuclear stress test showing small reversible defect. Assessment & Plan (01/23/2023 11:35 AM EDT): stable Assessment & Plan (09/11/2021 4:06 PM EDT): Chronic with some recent lability. Discussed that her blood pressure by my readings is actually very well controlled. Noted that her home blood pressure cuff seems to be reading high. She reports symptoms she has experienced previously with elevated BP such as facial flushing. -will have her continue current medication regimen of clonidine 0.1mg am and 0.2mg qhs, amlodipine 2.5mg bid, imdur 30mg daily, and toprol 50mg qhs. -will send message to her pcp as well to update him and see if he has further recommendations Assessment & Plan (06/11/2020 8:23 AM EST): Inadequately controlled by her estimation we will increase clonidine to 0.2 twice a day and will continue amlodipine and metoprolol as they are ordered Assessment & Plan (05/03/2020 12:04 AM EST): TIA was morning of 05/01/2020. She is outside of the permissive hypertension window and I will continue with her home medications. Assessment & Plan (04/24/2020 8:32 AM EST): As mentioned I am going to keep all of her medications the same except for increasing metoprolol to 100 mg once in the evening time. We will see her again in 3 months time Assessment & Plan (03/05/2020 11:52 AM EST): Inadequately controlled I am doubling metoprolol in the evening to 50 mg a day. I also rewrote her prescription for amlodipine to take 5 mg twice a day as she has trouble breaking the pills Assessment & Plan (12/16/2019 11:14 AM EDT): Blood pressure at home has recently trended up over the past week or 2, with readings 166/93. Prior to this with the addition of metoprolol in September, her blood pressures have been in the systolic 130s. There was confusion with her amlodipine dose and we were believed that she was on amlodipine 10 mg daily, however, we confirm today that she is only on 5 mg daily. We are going to increase this to 10 mg daily and see how she does. Encouraged her to continue checking her blood pressures and pulses at home as she has been doing. She will follow-up in 3 months to reassess her blood pressure in response to this medication adjustment. Updated echocardiogram unchanged, renal artery ultrasound and carotid ultrasound found to be normal. History of TIAs Overview (05/31/2020): She has been evaluated by Dr. Balderas at [facility]. He recommended tight control of her hypertension, goal SBP 130. Also recommended to take aspirin in the evening, due to predominant morning symptoms. Assessment & Plan (12/21/2020 8:42 AM EDT): This patient has had TIAs in the past and has a loop recorder in to look for atrial fibrillation none has been found since earlier implantation date this year Assessment & Plan (06/11/2020 8:25 AM EST): Being evaluated by Dr. Balderas at [facility] Bowel disease Herniated disc, cervical Overview (01/02/2022): and lumbar. MRI cervical ordered Dec [address] Jefferson, pending. Having worsening pain Resolved Problems Problem Noted Date Diagnosed Date Resolved Date Right hip pain 01/23/2023 05/12/2023 Overview (01/23/2023): Seems to have trochanteric bursitis but also groin pain, check x-ray. Weight gain 01/10/2019 01/02/2022 Assessment & Plan (02/08/2019 10:21 AM EDT): Since she has been gaining weight I decided to check a cortisol level just to see if she will require dexamethasone suppression test for evaluation of Annabel syndrome although she does not look cushingoid in any case the cortisol level was within the reference range. The only thing that at this point she can do his diet and exercise her BMI is 23 she does not qualify for obesity medications and it would not be covered by her insurance. Assessment & Plan (01/10/2019 10:14 AM EDT): The patient states that she has gained 17 pounds in the last year. She is been in her wheelchair for the last 3-1/2 years so she did expect some weight gain finds that is excessive. This is a problem because she has to shift from her wheelchair to the car sometimes her has to lift her. So the question is is there any abnormal endocrine disorders that can result in weight gain. I can check cortisol levels to see if she is cushingoid. Again I can check for hypothyroidism that can result in weight gain. As for the Annabel's syndrome this will be less likely. Normally patients have electrolyte abnormalities elevated glucose levels. She did have an elevated glucose levels but this was not fasting. In any case an easy way to check for this is to simply get a fasting cortisol level and see if is elevated. Again will do thyroid function studies. Person with feared complaint in whom no diagnosis was made 01/10/2019 01/23/2023 Assessment & Plan (02/08/2019 10:22 AM EDT): She also complained of symptoms of hypoglycemia. There is no documented hypoglycemia but her fasting glucose was 102 mg/dL and technically this is in the prediabetes range. Assuming that this was a true fasting glucose levels. My suggestion is that her fasting glucose to be monitored periodically and if he remains in that 100 225 mg range she should have a hemoglobin A1c checked to see if she is in the prediabetes range in terms of A1c and also possibly do a glucose tolerance test for further evaluation. Assessment & Plan (01/10/2019 10:24 AM EDT): The patient finds that she does not have fasting hyperglycemia is usually a couple of hours after eating and requires her to eat more to resolve the symptoms of hypoglycemia. There has not been any documented low glucose levels. So we can start out by checking C-peptide, fasting insulin levels and proinsulin levels as well as insulin antibodies. At this point I will also take the opportunity to evaluate TPO antibodies for thyroiditis since she does have autoimmune disorders and has been told that she had thyroiditis in the past. I have informed the patient that she must do or lab work fasting in the morning soon after waking up she should use at [facility]. He does not need a lab slip if she goes to [facility]. All the lab work is in the computer she has to do is bring in her ID and insurance card. So I did speak with the patient about lab results. I told her that I do not call patients I expect them to come in for the follow-up visit to discuss them. And then we can take further action on any abnormalities or if there is no findings found I can definitely write a note to the consulting physician regarding what we have determined. Cough 06/01/2018 01/23/2023 Assessment & Plan (06/01/2018 9:46 PM EST): May be a post-infectious inflammatory process, for which we will try Arnuity 100 mcg once daily for one month. She will continue to use albuterol MDI as needed. Encounter for long-term (cur rent) use of antibiotics 05/05/2017 06/19/2017 Tobacco dependence syndrome 05/05/2017 01/23/2023 Assessment & Plan (05/03/2020 12:04 AM EST): We will provide nicotine replacement therapy. Assessment & Plan (04/29/2019 3:04 PM EST): 5 minutes spent in counseling. See HPI for details. Assessment & Plan (06/01/2018 9:47 PM EST): 3 minutes spent in counseling patient. See HPI for details. Positive TAMARA (antinuclear antibody) 05/05/2017 06/19/2017 Rheumatoid arthritis 020 Assessment & Plan (05/14/2017 2:36 PM EST): She is having a real flare, will get xray R shoulder and labs. We discussed pred burst, which she would like. Also rx Voltaren gel. She did not tolerate oral NSAIDs recently. Encounters Date Type Department Care Team Description 03/18/2025 Nurse Triage [facility] [address] [facility] [address] [place] [address] Britany Lyons, HECTOR Bradycardia (After Hours Call/); Numbness (After Hours Call/) 03/18/2025 Nurse Triage [facility] [address] [facility] [address] [place] [address] Luzmaria Santillan, SANDRITA Numbness (After hours call ) 03/17/2025 10:30 AM EST Office Visit [address] [place] [place] [address] Elizabeth Martinez MD Left arm pain (Primary Dx); Malignant neoplasm of female breast, unspecified estrogen receptor status, unspecified laterality, unspecified site of breast; Resistant hypertension; Neuromuscular respiratory weakness; Multiple sclerosis; TIA (transient ischemic attack) 03/13/[address] [place] [address] Elizabeth Martinez MD Medication Refill 03/03/2025 Telephone [facility] [address] [place] [address] Elizabeth Martinez MD 02/22/2025 Telephone [facility] [address] [place] [address] Elizabeth Martinez MD Care Coordination ([facility] Virtual AW[facility] Outreach/) 02/21/2025 10:10 AM EDT - 02/21/2025 11:59 PM EDT Hospital Encounter [facility] [address] [place] [address] Elizabeth Martinez MD Discharge Disposition: Home or Self Care 02/19/[address] [place] [address] Elizabeth Martinez MD Medication Refill 01/22/[address] [place] [place] [address] Elizabeth Martinez MD Medication Refill from Last 3 Months Immunizations Immunization Administration Dates Next Due COVID-19 (Pre-02/16) Moderna Vaccine, mRNA, PF 12/19/2020,07/17/2020,06/19/2020 INFLUENZA, SPLIT VIRUS, TRIV ALENT W/ PRESERVATIVE IM 03/27/2016,02/22/2015 Influenza Quadrivalent Adjuv anted Preservative Free IM 02/21/2023 Influenza Quadrivalent MDCK Preservative Free IM 02/03/2022,01/25/2020,03/23/2018,2016 Influenza Quadrivalent Prese rvative Free IM 02/11/2021,03/12/2017 Influenza Quadrivalent w/ Preservative IM 02/02/2019 Influenza Trivalent Adjuvant ed Preservative free IM 02/21/2025,02/20/2024 Pneumococcal conjugate PCV20 12/09/2022 RSV Vaccine (bivalent) 03/13/2024 Zoster recombinant 09/23/2024 Family History Medical History Relation Comments Ataxia Brother 1 Hypertension Brother 1 Immunodeficiency Brother 1 CVID, on chroni c IVIG Chronic Pain Brother 2 Lumbar disc disease Brother 2 Breast cancer Cousin Coronary artery disease Father Hypertension Father Stroke Father Ulcerative colitis Father Atrial fibrillation Mother Heart failure Mother Hypertension Mother Stroke Mother Breast cancer Sister Stage 4 terminal breast cancer Drug abuse Sister incl IDU hepatitis c Sister Bipolar disorder Son 1 Eating disorder Son 1 Ulcerative colitis Son 1 Tremor Son 2 Benign essential tremor (MS workup negative) Relation Status Comments Brother 1 Alive Brother 2 Alive Cousin Father (Age 77) Mother (Age 85) Sister Alive Son 1 Alive Son 2 Alive Social History Tobacco Use Types Packs/Day Years Used Date Smoking Tobacco: Light Smoker Cigarettes 0.3 43 Smokeless Tobacco: Never Tobacco Cessation:Ready to Q uit: Not Asked; Counseling Given: Not Answered Comments:Started at age 18. 5 a day [...] F) 03/17/2025 10:34 AM EST Respiratory Rate 17 08/08/2024 5:28 PM EDT Oxygen Saturation 98% 03/17/2025 10:34 AM EST Inhaled Oxygen Concentration - - Weight 61.2 kg (135 lb) 08/08/2024 3:29 PM EDT Height 167.6 cm (5' 5.98 ) 03/17/2025 10:[address] Body Mass Index 21.79 08/08/2024 3:29 PM EDT Plan of Treatment Health Maintenance Due Date Last Done Comments Adult Td,Tdap Booster 1955 COLOGUARD 2002 FIT TEST 2002 FOBT 2002 SIGMOIDOSCOPY 2002 VIRTUAL COLONOSCOPY 2002 OSTEOPOROSIS SCREENING INITIAL (ONE-TIME) 2022 ZOSTER VACCINES (2 of 2) 11/18/2024 09/23/2024 COVID-19 VACCINE ( season) 2024 07/26/2024, 12/26/2023, 01/30/2023, Additional history exists BLOOD PRESSURE 09/14/2025 03/17/2025 DEPRESSION SCREENING 03/17/2026 03/17/2025 SMOKING Hx and SMOKELESS TOBACCO SCREENING 03/17/2026 03/17/2025 COLONOSCOPY 05/02/2027 05/02/2022, 03/10/2018 COLORECTAL CANCER SCREENING 05/02/2027 MAMMOGRAM 03/11/2028 02/06/2022, 08/25, 05/30/2014 Postponed from 02/07/2024 (Not Clinically Appropriate) PNEUMOCOCCAL VACCINES (50+ years) Completed 12/09/2022 RSV VACCINE Completed 03/13/2024 HEPATITIS C SCREENING Completed 02/21/2025 , 02/21/2025, 02/21/2025, Additional history exists INFLUENZA VACCINE Completed 02/21/2025, , 02/21/2023, Additional history exists HEPATITIS A VACCINES Aged Out No long er eligible based on patient's age to complete this topic HIB VACCINES Aged Out No longer eligi ble based on patient's age to complete this topic MENINGOCOCCAL VACCINES (ACWY) Aged Out No longer eligible based on patient's age to complete this topic MENINGOCOCCAL VACCINES (B) Aged Out N o longer eligible based on patient's age to complete this topic Medical Devices Implanted Type Area Store Assistant Device Identifier Shelf Expiration Date Model / Serial / Lot Loop Recorder Procedures Procedure Name Priority Date/Time Associated Diagnosis Comments NEUROFILAMENT LIGHT CHAIN, PLASMA Routine 03/01/2025 10:52 AM EST Keratoconjunctivitis sicca, in Sjogren's syndrome QUANTIFERON-TB GOLD PLUS Routine 03/01/2025 10:52 AM EST Keratoconjunctivitis sicca, in Sjogren's syndrome LIPID PANEL Routine 02/21/2025 11:05 AM EDT Atherosclerosis of [place] coronary artery of [place] heart with stable angina pectoris HEMOGLOBIN A1C Routine 02/21/2025 11:05 AM EDT Elevated glucose T+B CELL QUANT, FLW CYTO Routine 02/21/2025 11:05 AM EDT MS (multiple sclerosis) IgG deficiency Sjogren syndrome with keratoconjunctivitis sicca COMPREHENSIVE METABOLIC PANEL (CMP) Routine 02/21/2025 11:05 AM EDT MS (multiple sclerosis) IgG deficiency Sjogren syndrome with keratoconjunctivitis sicca CBC AND DIFFERENTIAL Routine 02/21/2025 11:05 AM EDT MS (multiple sclerosis) IgG deficiency Sjogren syndrome with keratoconjunctivitis sicca HIV-1/2 ANTIGEN/ANTIBODY Routine 02/21/2025 11:05 AM EDT MS (multiple sclerosis) IgG deficiency Sjogren syndrome with keratoconjunctivitis sicca HEPATITIS A ANTIBODY, IGM Routine 02/21/2025 11:05 AM EDT MS (multiple sclerosis) IgG deficiency Sjogren syndrome with keratoconjunctivitis sicca HEPATITIS B SURFACE ANTIGEN Routine 02/21/2025 11:05 AM EDT MS (multiple sclerosis) IgG deficiency Sjogren syndrome with keratoconjunctivitis sicca HEPATITIS B CORE ANTIBODY, TOTAL Routine 02/21/2025 11:05 AM EDT MS (multiple sclerosis) IgG deficiency Sjogren syndrome with keratoconjunctivitis sicca HEPATITIS C ANTIBODY, QUALITATIVE Routine 02/21/2025 11:05 AM EDT MS (multiple sclerosis) IgG deficiency Sjogren syndrome with keratoconjunctivitis sicca ENDOSCOPY, COLON 05/02/2022 12:20 PM EST BI MAMMOGRAM DIAGNOSTIC WITH TOMOSYNTHESIS WITH CAD (BILATERAL) Routine 02/06/2022 1:34 PM EDT Mastodynia from Last 3 Months or Most Recently Relevant to Health Maintenance Results * QuantiFERON-Tb Gold Plus (03/01/2025 10:52 AM EST) Pathologist [facility] Quantiferon-Tb Gold Plus Result Negative Negative 03/05/2025 8:49 AM EST [facility] Comment: No interferon-gamma response to M. tuberculosis antigens was detected. Latent infection with M. tuberculosis is unlikely. A single negative result does not exclude infection with M. tuberculosis. In patients at high risk for M.tuberculosis infection, a second test should be considered in accordance with the 2017 ATS/IDSA/CDC Clinical Practice Guidelines for Diagnosis of Tuberculosis in Adults and Children [Lewinsohn JOSÉ et. al. Clin. Infect. Dis. 2017;64(2):111-115]. The reference range for the 'TB1 Ag minus Nil Result' and 'TB2 Ag minus Nil Result' is an Interferon-gamma level <0.35 IU/mL. Tb1 Ag Minus NIL Result 0.01 IU/mL 03/05/2025 8:49 AM EST [facility] Tb2 Ag Minus NIL Result 0.00 IU/mL 03/05/2025 8:49 AM EST [facility] Mitogen Minus Nil Result 9.95 IU/mL 03/05/2025 8:49 AM EST [facility] NIL Result 0.05 IU/mL 03/05/2025 8:49 AM EST [facility] Blood (Blood) Venipuncture / Unknown 03/01/2025 10:52 AM EST 03/01/2025 11:04 AM EST Caro Esposito MD LAB BLOOD BKR ORDERABLES Sonali l Result LORA (BEAKER) [facility] [address] [phone] * Neurofilament Light Chain, Plasma (03/01/2025 10:52 AM EST) NEUROFILAMENT LIGHT CHAIN, P 16.4 < or = 32.7 pg/mL 03/06/2025 10:45 AM EST [facility] Comment: As of 2024, [facility] [employer] has updated the Neurofilament Light Chain (NfL) methodology. If patient is undergoing serial monitoring of NfL levels, rebaselining by requesting that this sample also be run on the previous assay method for comparison purposes is recommended. Rebaseline of this sample at no charge will be available until 06/23/2025 and the rebaseline result will be added to this report. Contact [facility] at to request this service. For [place] patients, call [phone]. ADDITIONAL INFORMATION The testing method is a chemiluminescent enzyme immunoassay for the quantitative determination of NfL in plasma manufactured by [employer]. and performed on the ZuzuChe analyzer. Values obtained with different methods may be different and cannot be used interchangeably. This test was developed and its performance characteristics determined by [facility] in a manner consistent with CLIA requirements. It has not been cleared by the [place] Food and Drug Administration. Blood (Blood) Venipuncture / Unknown 03/01/2025 10:52 AM EST 03/01/2025 11:04 AM EST Caro Esposito MD LAB BLOOD BKR ORDERABLES Sonali l Result GUIDO COLLADO) [facility] - [address] [phone] * Hepatitis A antibody, IgM (02/21/2025 11:05 AM EDT) Hepatitis A Antibody, IgM NON-REACTI VE NON-REACTI VE [facility] Blood 02/21/2025 11:0 5 AM EDT 02/21/2025 11:20 AM EDT Provider Not In System PhD LAB BLOOD BKR ORDERAB LES Final Result [facility] [address] [place] [address] * T+B cell quant, flow cytometry (02/21/2025 11:05 AM EDT) CD45 LYMPH COUNT Test component not applicable or not reported. thou/mcL [facility] %CD3 (T CELLS) Test Not Performed. % [facility] Comment: (NOTE) QN Lymphocyte Subsets: T, B, and NK was cancelled on 02/23/2025 at 20:13; Due to age of specimen. Received in lab past stability. %CD19 (B CELLS) Test component not applicable or not reported. % [facility] DR %CD16+CD56 (NK CELLS) Test component not applicable or not reported. % [facility] DR %CD4 (HELPER CELLS) Test component not applicable or not reported. % [facility] DR %CD8 (SUPPR CELLS) Test component not applicable or not reported. % [facility] DR CD3 (T CELLS) Test component not applicable or not reported. cells/[facility] DR CD19 (B CELLS) Test component not applicable or not reported. cells/[facility] DR CD16+CD56 (NK CELLS) Test component not applicable or not reported. cells/[facility] DR CD4 (HELPER CELLS) Test component not applicable or not reported. cells/[facility] DR CD8 (SUPPR CELLS) Test component not applicable or not reported. cells/[facility] DR H/S RATIO Test component not applicable or not reported. [facility] DR COMMENT Test Not Performed. [facility] Comment: (NOTE) QN Lymphocyte Subsets: T, B, and NK was cancelled on 02/23/2025 at 20:13; Due to age of specimen. Received in lab past stability. Blood 02/21/2025 11:0 5 AM EDT 02/21/2025 11:20 AM EDT us Provider Not In System PhD LAB BLOOD ORDERABLES Final Result [facility] [place] [address] [place] [address] * (ABNORMAL) Comprehensive metabolic panel (02/21/2025 11:05 AM EDT) [facility] SODIUM 140 133 - 146 mmol/L [facility] POTASSIUM 4.1 3.3 - 5.1 mmol/L [facility] CHLORIDE 102 96 - 108 mmol/L [facility] CO2 28 21 - 35 mmol/L [facility] BUN 14 6 - 19 mg/dL [facility] CREATININE 0.70 0.5 - 1.5 mg/dL [facility] GLUCOSE 115(H) 70 - 99 mg/dL [facility] ALBUMIN 4.5 3.9 - 4.8 g/dL [facility] TOTAL PROTEIN 8.1(H) 6.5 - 8.0 g/dL [facility] CALCIUM 9.8 8.4 - 10.3 mg/dL [facility] ALKALINE PHOSPHATASE 120(H) 39 - 117 U/L [facility] TOTAL BILIRUBIN 0.4 0.0 - 1.2 mg/dL [facility] AST 30 0 - 37 U/L [facility] ALT 21 0 - 40 U/L [facility] GLOBULIN 3.6 1 - 4.8 g/dL [facility] EGFR 95 >59 mL/min/1.7 3m2 [facility] Comment:Estimated glomerular filtration rate calculated using the CKD-EPI refit equation. ANION GAP 14 10 - 20 mmol/L [facility] Blood 02/21/2025 11:0 5 AM EDT 02/21/2025 11:20 AM EDT us Provider Not In System PhD LAB BLOOD BKR ORDERAB LES Final Result [address] [address] * HIV-1/2 antigen/antibody (02/21/2025 11:05 AM EDT) HIV-1/2 Antigen/Antibo dy NON-REACTI VE NON-REACTI VE [facility] Blood 02/21/2025 11:0 5 AM EDT 02/21/2025 11:09 AM EDT us Provider Not In System PhD LAB BLOOD BKR ORDERAB LES Final Result [address] [address] * Hepatitis C antibody, qualitative (02/21/2025 11:05 AM EDT) HCV NON-REACTIV E NON-REACTI VE [facility] Blood 02/21/2025 11:0 5 AM EDT 02/21/2025 11:20 AM EDT us Provider Not In System PhD LAB BLOOD BKR ORDERAB LES Final Result Performing Organization Address [facility]/ZIP Co de Phone Number [address] [address] * (ABNORMAL) Hepatitis B core antibody, total (02/21/2025 11:05 AM EDT) HEP B CORE AB, TOT REACTIVE(A ) NON-REACTI [facility] Blood 02/21/2025 11:0 5 AM EDT 02/21/2025 11:20 AM EDT us Provider Not In System PhD LAB BLOOD BKR ORDERAB LES Final Result Performing Organization Address [facility]/ZIP Co de Phone Number [address] [address] * Hepatitis B surface antigen (02/21/2025 11:05 AM EDT) HBV SURFACE ANTIGEN NON-REACTI VE NON-REACTI VE [facility] Blood 02/21/2025 11:0 5 AM EDT 02/21/2025 11:20 AM EDT us Provider Not In System PhD LAB BLOOD BKR ORDERAB LES Final Result Performing Organization Address [facility]/ZIP Co de Phone Number [address] [address] * (ABNORMAL) CBC and differential (02/21/2025 11:05 AM EDT) WBC 8.48 4.00 - 11.00 K/uL [facility] RBC 5.15 4.00 - 5.20 M/uL [facility] HGB 16.6(H) 12.0 - 16.0 g/dL [facility] HCT 49.4(H) 36.0 - 46.0 % [facility] PLT 186 150 - 450 K/uL [facility] MCV 95.9 80.0 - 100.0 fL [facility] MCH 32.2(H) 27.0 - 31.0 pg [facility] MCHC 33.6 32.0 - 36.0 g/dL [facility] RDW 12.3 11.5 - 14.5 % [facility] MPV 12.7(H) 8.4 - 12.0 fL [facility] NRBC 0.00 0.00 /100 WBCs [facility] ABSOLUTE NRBC 0.00 0.00 K/uL [facility] DIFF METHOD Auto [facility] NEUTS 79.7(H) 48.0 - 76.0 % [facility] LYMPHS 14.0(L) 18.0 - 41.0 % [facility] MONOS 4.7 4.0 - 11.0 % [facility] EOS 0.7 0.0 - 5.0 % [facility] BASOS 0.5 0.0 - 1.5 % [facility] Granulocytes, immature (%) 0.4 0.0 - 0.9 % [facility] ABSOLUTE NEUTS 6.76 1.92 - 7.60 K/uL [facility] ABSOLUTE LYMPHS 1.19 0.72 - 4.10 K/uL [facility] ABSOLUTE MONOS 0.40 0.16 - 1.10 K/uL [facility] ABSOLUTE EOS 0.06 0.00 - 0.50 K/uL [facility] ABSOLUTE BASOS 0.04 0.00 - 0.15 K/uL [facility] Granulocytes, immature 0.03 0.00 - 0.09 K/uL [facility] Blood 02/21/2025 11:0 5 AM EDT 02/21/2025 11:20 AM EDT us Provider Not In System PhD LAB BLOOD BKR ORDERAB LES Final Result Performing Organization Address [facility] Co de Phone Number [address] [address] * Hemoglobin A1c (02/21/2025 11:05 AM EDT) HEMOGLOBIN A1C 5.8 4.3 - 5.8 % [facility] Blood 02/21/2025 11:0 5 AM EDT 02/21/2025 11:20 AM EDT us Elizabeth Martinez MD LAB BLOOD BKR ORDERABLES Final Result Performing Organization Address [facility] Co de Phone Number [address] [address] * (ABNORMAL) Lipid panel (02/21/2025 11:05 AM EDT) HDL 68 mg/dL [facility] Comment: Interpretation <40 mg/dL: Low HDL cholesterol (major risk factor for CHD) Greater than or equal to 60 mg/dL: High HDL cholesterol ( negative risk factor for CHD) HDL - cholesterol is affected by a number of factors, e.g. smoking, excerise, hormones, sex and age. CHOLESTEROL 153 0 - 240 mg/dL [facility] TRIGLYCERIDES 95 30 - 160 mg/dL [facility] LDL 66 50 - 129 mg/dL [facility] Comment: LDL levels in terms of risk for coronary heart disease: <100 mg/dL: Optimal 100-129 mg/dL: Near or above optimal 130-159 mg/dL: Borderline high 160-189 mg/dL: High >190 mg/dL: Very High CARDIAC RISK RATIO 2.3(L) 3.3 - 4.4 C [facility] Blood 02/21/2025 11:0 5 AM EDT 02/21/2025 11:09 AM EDT us Anitha Sadler CNP LAB BLOOD BKR ORDERABLES F inal Result Performing Organization Address City/[facility]/ZIP Co de Phone Number [address] [address] * ENDOSCOPY, COLON (05/02/2022 12:20 PM EST) Narrative Transcriptions Jess Sommer MD - 05/02/2022 12:20 PM EST [facility] Patient Name: Jodi Griffinan Attending MD:: JESS SOMMER MD Procedure Date: 05/02/2022 12:20 PM Date of : 1955 Age: 67 Admit Type: Outpatient Gender: Female Room: [place] [address] Referring MD: ELIZABETH MARTINEZ Exam Type: Colonoscopy Indications: Chronic diarrhea Medications: Monitored Anesthesia Care Procedure: Informed consent was obtained from the patientafter discussion of the indications, limitations, alternatives, benefits, and risks of the procedure. Risks specifically discussed include but are not limited to medication reactions, missed lesions, bleeding, perforation, or the need for emergent surgery. Throughout the procedure, the patient's blood pressure, pulse, end-tidal CO2, and oxygensaturations were monitored continuously. The Olympus adult variable colonoscope [id number] #5 was introduced through the anus and advanced to the terminal ileum, with identification of theappendiceal orifice and IC valve. The colonoscopy was performed without difficulty. The patient tolerated the procedure well. The quality of the bowelpreparation was good. The terminal ileum, ileocecal valve, appendiceal orifice, and rectum werephotographed. Complications: No immediate complications. Estimated blood loss:None. Findings: The terminal ileum appeared normal. This wasbiopsied with a cold forceps for histology. Examination of the right colon was repeated in retroflexion and again in NBI. Retroflexion wasalso performed in the rectum. A 5 mm polyp was found in the cecum. The polyp was sessile. The polyp was removed with a cold snare. Resection and retrieval were complete. Multiple diverticula were found in the sigmoidcolon. The exam was otherwise without abnormality. A 4 mm polyp was found in the ascending colon. The polyp was sessile. The polyp was removed with acold snare. Resection and retrieval were complete. Impression: - The examined portion of the ileum was normal. Biopsied. - One 5 mm polyp in the cecum, removed with a cold snare. Resected and retrieved. - Diverticulosis in the sigmoid colon. - The examination was otherwise normal. - One 4 mm polyp in the ascending colon, removedwith a cold snare. Resected and retrieved. Recommendation: - Patient has a contact number available for emergencies. The signs and symptoms of potential delayed complications were discussed with thepatient. Return to normal activities tomorrow. Written discharge instructions were provided to thepatient. - Await pathology results. - Repeat colonoscopy in 5 years for surveillance. Jess Sommer JESS SOMMER MD 05/02/2022 1:21:00 PM This report has been signed electronically. Number of Addenda: 0 Note Initiated On: 05/02/2022 12:20 PM Procedure Code(s): --- Professional --- 01769, Colonoscopy, flexible; with removal of tumor(s), polyp(s), or other lesion(s) by snare technique [id number], 59, Colonoscopy, flexible; with biopsy, single or multiple --- Technical --- 94877, Colonoscopy, flexible; with removal of tumor(s), polyp(s), or other lesion(s) by snare technique [id number], 59, Colonoscopy, flexible; with biopsy, single or multiple CPT copyright 2020 [employer]. All rights reserved. The codes documented in this report are preliminary and upon adaptive physical education teacher reviewmay be revised to meet current compliance requirements. Procedure Date: 05/02/2022 12:20:[address] [place] [address] us Elizabeth Martinez MD GI PROCEDURE ORDERABLES Final R esult * BI MAMMOGRAM DIAGNOSTIC WITH TOMOSYNTHESIS WITH CAD (BILATERAL) (02/06/2022 1:34 PM EDT) Anatomical Region Laterality Modality Breast Left, Breast Right, Breast Bilateral Bila teral Mammography 02/06/2022 2:21 PM EDT Impressions 02/06/2022 2:25 PM EDT Numerous small benign cysts in the central left breast. No explanation of pain on the right. No findings suspicious for malignancy on either side. In the absence of a worrisome palpable abnormality, annual screening mammography is recommended. The results were relayed to the patient. BI-RADS CATEGORY: 2 - Benign finding. DENSITY: There are scattered fibroglandular densities. Narrative 02/06/2022 2:25 PM EDT COMPARISON: 10/04/2004 through 09/08/2017. This is a diagnostic mammogram for bilateral breast pain. Bilateral 3-D tomosynthesis with 2-D reconstructions in the CC and MLO projection. Computer-aided detection system also utilized. On the left there is now a cluster of subcentimeter well-circumscribed round masses directly posterior to the nipple about 3 cm. The largest measures 9 to 10 mm maximally. On subsequent ultrasound these are found to be simple cysts. No follow-up needed. On the right no mammographic or sonographic findings of concern are identified. No new suspicious asymmetry, architectural distortion or worrisome calcifications have become apparent on either side. There is a new cardiac loop recorder incidentally noted in the medial left breast. Procedure Note Artemio Parsons MD - 02/06/2022 COMPARISON: 10/04/2004 through 09/08/2017. This is a diagnostic mammogram for bilateral breast pain. Bilateral 3-D tomosynthesis with 2-D reconstructions in the CC and MLOprojection. Computer-aided detection system also utilized. On the left there is now a cluster of subcentimeter well-circumscribedround masses directly posterior to the nipple about 3 cm. The largestmeasures 9 to 10 mm maximally. On subsequent ultrasound these are found james simple cysts. No follow-up needed. On the right no mammographic or sonographic findings of concern areidentified. No new suspicious asymmetry, architectural distortion or worrisomecalcifications have become apparent on either side. There is a new cardiac loop recorder incidentally noted in the medial leftbreast. IMPRESSION: Numerous small benign cysts in the central left breast. No explanation ofpain on the right. No findings suspicious for malignancy on either side.In the absence of a worrisome palpable abnormality, annual screeningmammography is recommended. The results were relayed to the patient. BI-RADS CATEGORY: 2 - Benign finding. DENSITY: There are scattered fibroglandular densities. Yessica Hernandes MD IMG MG EXAMS Final Res ult from Last 3 Months or Most Recently Relevant to Health Maintenance [place] [address] [place] [address] MEDICARE PART A & [place] [place] [address] MEDICARE PART A & [place] [place] [address] MEDICARE PART A & [place] [place] [address] MEDICARE PART A & B Travis [place] [address] [facility] MEDICARE PART A & B [facility] MEDICARE PART A & B Member Subscriber Plan / Payer (Ef fective 1989-) Name:Jodi Armenta Member ID:[id number] Relation to Subscriber:Self Name:Jodi Armenta Subscriber ID:[id number] Payer ID:[id number] Group ID:Not on file Type:Medicare Address: [employer] 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 Historical LMR Provider 02/14/17 Kelvin Acosta MD [address] [place] [address] [email or web address] Historical LMR Provider 02/14/17 Yessica Hernandes MD [address] [place] [address] [email or web address] Obstetrics and Gynecology 09/02/17 Karen Yen MD [address] [place] [address] [email or web address] Medical Oncology 09/02/17 Elizabeth Martinez MD [address] [place] [address], [address] [place] [address] [email or web address] Insurance Assigned Provider 08/01/23 Additional Source Comments The information contained in this document represents components of the legal health record. It is not the complete legal health record.Formerly [facility]
--- OUTSIDE RECORDS SUMMARY | 2025-03-18 19:32 | XMS_ITS | Encounter Summary ---
Author Organization [facility] Address [address] [place] [address] [address] [place] [address] Phone Care Team Providers Care Order Worker Name Role Phone Marion Mattson MD Unavailable [phone] Kelvin Acosta MD Unavailable [phone] Nato Martinez MD Primary Care Provider [phone] Yessica Hernandes MD Unavailable Karen Yen MD Unavailable Nato Martinez MD Unavailable [phone] Encounter Details Date Type Department Care Team (Late st Contact Info) Description 08/08/2024 Procedure Pass [facility], Ct Scan - [address] [address] Social History Tobacco Use Types Packs/Day Years [...] Date of Assessment Author No Risk Indicated 08/08/2024 3:30 PM EDT Brandy Rousseau, COMFORT * [place] Suicide Severity Rating Scale (Screener/Recent Self-Report) Question Answer Date of Assessment Author 1. Wish to be (Past 1 Month) No 025 3:30 PM EDT Brandy Rousseau, COMFORT 2. Non-Specific Active Suici lamonte Thoughts (Past 1 Month) No 08/08/2024 3:30 PM EDT Brandy Rousseau, RN 6. Suicidal Behavior (Lifetime) No 3:30 PM EDT Brandy Rousseau, RN documented as of this encounter Plan of Treatment Not on file documented as of this encounter Visit Diagnoses Not on filedocumented in this encounter Additional Health Concerns Infection Onset Date Last Indicated Resolved Time COVID-19 10/07/2024 10/07/2024 10/28/2024 1:21 AM EDT Assessment Noted Time PHQ-2 Depression Total Score: 0 01/24/20 23 10:33 AM EDT documented as of this encounter Care Teams Order Worker Relationship Specialty Start Date End Date Nato Martinez MD [address] [facility], [address] [place] [address] PCP - General Internal Medicine 05/13/17 Marion Mattson MD [address] [facility], [address] [place] [address] Historical LMR Provider 02/14/17 Kelvin Acosta MD [address] [place] [address] [email or web address] Historical LMR Provider 02/14/17 Yessica Hernandes MD [address] [place] [address] [email or web address] Obstetrics and Gynecology 09/02/17 Karen Yen MD [address] [place] [address] Medical Oncology 09/02/17 Nato Martinez MD [address] [facility] [place] [address] Insurance Assigned Provider 08/01/23 documented as of this encounter Additional Source Comments The information contained in this document represents components of the legal health record. It is not the complete legal health record.[facility]
--- OUTSIDE RECORDS SUMMARY | 2025-03-18 19:32 | XMS_ITS | Encounter Summary ---
Author Organization [facility] Address [address] [place] [address] [place] [address] Phone Care Team Providers Care Glazier Structural Glass Name Role Phone Marion Mattson MD Unavailable Kelvin Acosta MD Unavailable [phone] Nato Martinez MD Primary Care Provider Yessica Hernandes MD Unavailable Karen Yen MD Unavailable Nato Martinez MD Unavailable [phone] Encounter Details Date Type Department Care Team (Late st Contact Info) Description 09/02/2021 Procedure Pass Non-Invasive Cardiology [address] [place] [address] Social History Tobacco Use Types Packs/Day Years [...] documented as of this encounter Care Teams Glazier Structural Glass Relationship Specialty Start Date End Date Nato Martinez MD [address] [place] [address], [address] [place] [address] PCP - General Internal Medicine 05/13/17 Marion Mattson MD [address] [place] [address], [address] [place] [address] [email or web address] Historical LMR Provider 02/14/17 Kelvin Acosta MD [address] [place] [address] [email or web address] Historical LMR Provider 02/14/17 Yessica Hernandes MD [address] [place] [address] [email or web address] Obstetrics and Gynecology 09/02/17 Karen Yen MD [address] [place] [address] Medical Oncology 09/02/17 Nato Martinez MD [address] [place] [address], [address] [place] [address] Insurance Assigned Provider 08/01/23 documented as of this encounter Additional Source Comments The information contained in this document represents components of the legal health record. It is not the complete legal health record.[facility]"
--- OUTSIDE RECORDS SUMMARY | 2025-03-18 19:32 | XMS_ITS ---
Author Organization [facility] Address [address] [facility] [address] [place] [address] Phone Care Team Providers Care Weatherization Operations Manager Name Role Phone Marion Mattson MD Unavailable [phone] Kelvin Acotsa MD Unavailable [phone] Nato Martinez MD Primary Care Provider Yessica Hernandes MD Unavailable Karen Yen MD Unavailable Nato Martinez MD Unavailable [phone] Active Problems Problem Noted Date Diagnosed Date [...] states that she rather follow-up with her wire roller for osteopenia management. Assessment & Plan (01/28/2024 [...] glands. She was seen by specialist at [facility] who felt that she does not have [...] did review complications associated with hypercortisolemia and [place] syndrome and really she is not having [...] want to see a [facility] specialist in [place] and that may be helpful to relieve [...] will be seeking further care with the [facility] cardiology group History of rheumatoid arthritis [...] and discharge December 2022. Being evaluated by [facility] THREADER, diagnostic mammogram and ultrasound ordered. Left breast [...] hip 11/06/2022 Overview (05/12/2023): MRI right hip ([facility]) 2012 lytic lesion right femoral neck CT abd [...] PFTS sitting and supine with MIPS/MEPS at [facility]. Hypersomnia 10/30/2020 11/07/2022 Overview (11/07/2022): Severe [...] start modfanil/armodafinil. Atherosclerosis of coronary artery of [place] heart with stable angina pectoris 10/05/2020 Overview [...] pos lip biopsy 20 yrs ago at [facility]. SSA/SSB March 2020 negative. Dec 2021: [...] PM EST): Periodic checkup as instructed by tariff compiler. Assessment & Plan (02/08/2019 10:21 AM EDT): [...] have elevated free testosterone. Will evaluate for [place] syndrome, congenital adrenal hyperplasia, PCOS. Will proceed [...] then I would suggest she see a social work job titles for further evaluation. Assessment & Plan (02/08/2019 [...] ar region 10/29/2018 Overview (10/29/2018): Refer to [facility] for possible epidural steroid [...] staff request recent PFT performed 03/2018 at [facility], but I do note the absence of [...] testing in March, and obtain results from [facility] performed 2 months ago. Acute bursitis of [...] (04/17/2020 6:09 PM EST): Close follow-up with training associate as scheduled. 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 De Los Santos. Menopausal state 05/05/2017 Syrinx of spinal cord 05/05/2017 Retention of urine 05/05/2017 Spasm 05/05/2017 Fatigue 05/16/2016 11/07/2022 Generalized muscle weakness 03/07/2015 0707/2022 Abnormal gait 12/12/2014 11/07/2022 Bowel incontinence 10/31/2013 11/07/2022 Osteoarthritis of hand 10/12/2013 CVID (common variable immunodeficiency) 04/27/19 14 Overview (01/02/2022): on [facility], Dr. De Los Santos Gets IVIG every [...] Staging:Clinical: Unsigned Overview (03/17/2025): Dr Alcaraz at [facility] manages. Currently monitor, slow growing, no [...] neurologist at [facility] in [place] as scheduled. Assessment & Plan (03/05/2020 11:52 [...] Overview (11/06/2022): dx'd 1986 by neurologist / wire roller hydroxychloroquine dc'd 2018 after 25 yrs due to ? maculopathy [...] by Dr Jefferson, pending. Having worsening pain Current Treatment and Therapy Plans No current plan information found. Past Treatment and Therapy Plans No past plan information found. Lifetime Dose Tracking * Chemical Lifetime Dose Automatic Entry Manual Entr y Invasive Cardiology Radiatio n Exposure 81 mGy 0 mGy 81 mGy 1. DAP 1,276.76 mGy-cm2 0 mGy-cm2 1,276.76 mG y-cm2 Resolved Problems Problem Noted Date Diagnosed Date [...] after waking up she should use at [facility] facility. He does not need a lab slip if she goes to [facility] facility. All the lab work is in the [...]
--- OUTSIDE RECORDS SUMMARY | 2025-03-18 19:32 | XMS_ITS | Encounter Summary ---
Author Organization [facility] Address [address] [place] [address] [address] [place] [address] Phone Care Team Providers Care Database Specialist Name Role Phone Marion Mattson MD Unavailable Kelvin Acosta MD Unavailable [phone] Nato Martinez MD Primary Care Provider [phone] Yessica Hernandes MD Unavailable Karen Yen MD Unavailable Nato Martinez MD Unavailable [phone] Encounter Details Date Type Department Care Team (Late st Contact Info) Description 08/08/2024 Procedure Pass [facility], Ct Scan - [address] [address] Social History Tobacco Use Types Packs/Day Years [...] 3:30 PM EDT Brandy Rousseau, COMFORT * [place] Suicide Severity Rating Scale (Screener/Recent Self-Report) Question [...] documented as of this encounter Care Teams Database Specialist Relationship Specialty Start Date End Date Nato Martinez MD [address] [facility], [address] [place] [address] PCP - General Internal Medicine 05/13/17 Marion Mattson MD [address] [facility], [address] [place] [address] Historical LMR Provider 02/14/17 Kelvin Acosta MD [address] [place] [address] [email or web address] Historical LMR Provider 02/14/17 Yessica Hernandes MD [address] [place] [address] [email or web address] Obstetrics and Gynecology 09/02/17 Karen Yen MD [address] [place] [email or web address] Medical Oncology 09/02/17 Nato Martinez MD [address] [facility] [place] [address] Insurance Assigned Provider 08/01/23 documented as of this encounter Additional Source Comments The information contained in this document represents components of the legal health record. It is not the complete legal health record.[facility]
--- OUTSIDE RECORDS SUMMARY | 2025-03-18 19:32 | XMS_ITS | Encounter Summary ---
Author Organization [facility] Address [facility] Join The Wellness Team [facility] [address] [place] [address] Phone Care Team Providers Care Emotional Disabilities Teacher Name Role Phone Marion Mattson MD Unavailable [phone] Kelvin Acosta MD Unavailable [phone] Nato Martinez MD Primary Care Provider Yessica Hernandes MD Unavailable Karen Yen MD Unavailable Nato Martinez MD Unavailable [phone] Encounter Details Date Type Department Care Team (Late st Contact Info) Description 08/08/2024 Procedure Pass [facility] [address] [place] [address] Social History Tobacco Use Types Packs/Day Years [...] Risk Indicated 08/08/2024 3:30 PM EDT Brandy Rousseau RN * Kidder Suicide Severity Rating Scale (Screener/Recent Self-Report) Question Answer Date of Assessment Author 1. Wish to be (Past 1 Month) No 025 3:30 PM EDT Brandy Rousseau, COMFORT 2. Non-Specific Active Suici lamonte Thoughts (Past 1 Month) No 08/08/2024 3:30 PM EDT Brandy Rousseau, COMFORT 6. Suicidal Behavior (Lifetime) No 3:30 PM EDT Brandy Rousseau, COMFORT documented as of this encounter Plan of Treatment Not on file documented as of this encounter Visit Diagnoses Not on filedocumented in this encounter Additional Health Concerns Infection Onset Date Last Indicated Resolved Time COVID-19 10/07/2024 10/07/2024 10/28/2024 1:21 AM EDT Assessment Noted Time PHQ-2 Depression Total Score: 0 01/24/20 23 10:33 AM EDT documented as of this encounter Care Teams Emotional Disabilities Teacher Relationship Specialty Start Date End Date Nato Martinez MD [address] [place] [address], [address] [place] [address] PCP - General Internal Medicine 05/13/17 Marion Mattson MD [address] [facility], [address] [place] [address] Historical LMR Provider 02/14/17 Kelvin Acosta MD [address] [place] [address] [email or web address] Historical LMR Provider 02/14/17 Yessica Hernandes MD [address] [place] [address] [email or web address] Obstetrics and Gynecology 09/02/17 Karen Yen MD [address] [place] [email or web address] Medical Oncology 09/02/17 Nato Martinez MD [address] [place] [address], [address] [place] [address] Insurance Assigned Provider 08/01/23 documented as of this encounter Additional Source Comments The information contained in this document represents components of the legal health record. It is not the complete legal health record.[facility]
--- OUTSIDE RECORDS SUMMARY | 2025-03-18 19:32 | XMS_ITS | Encounter Summary ---
Author Organization [facility] Address [address] [facility] [address] [place] [address] Phone Care Team Providers Care Sanding Machine Tender Automatic Name Role Phone Marion Mattson MD Unavailable [phone] Kelvin Acosta MD Unavailable [phone] Nato Martinez MD Primary Care Provider Yessica Hernandes MD Unavailable Karen Yen MD Unavailable Nato Martinez MD Unavailable [phone] Reason for Visit * Reason Onset Date Comments Numbness 03/18/2025 After hours call Encounter Details Date Type Department Care Team (Late st Contact Info) Description 03/18/2025 Nurse Triage [facility] [address] [facility] [address] [place] [address] Luzmaria Santlilan, FORESTRY AID [address] [place] [address] [email or web address] Numbness (After hours call ) Social History Tobacco Use Types Packs/Day Years [...] as of this encounter Progress Notes * Luzmaria Santillan, SANDRITA - 03/18/2025 1:54 PM EST After Hours Call Note 03/18/2025 1:54 PM Caller: Jodi Zarate Chief complaint: Blood pressure 99/62 and HR 47. Having numbness left side of mouth and left hand.Took 2 doses of her nitroglycerine HPI: Patient has history of progressive MS, RA, heart and Hypertension. Accidentally doubled up on her BP medications this morning including her baclofen and isosorbide. Angina like pain in her arm for a long period of time, saw Dr. Martinez yesterday . Thoracic catheterization. Arm pain from shoulder to hand with has been happening since 2020. New numbness of left mouth, numbness on left side at baseline because of MS. No new weakness or drooping in left face. BP was 99/62 three hours ago, repeat blood pressure right now is 115/64, pulse 48, Patient is feeling lightheadness and dizzy, slurring word more than usual. Plan: Recommend ER given new left side of mouth numbness. Patient wishes to stay home given her late stage MS and symptoms. Patient reports if she develops any new weakness on the left side then she will go to the ED. Explained possible risks, but informed patient that it was ultimately her decision Medications prescribed: none Disposition: Emergency Room (ER) Nurse Triage Encounter Note Reason for Triage Jodi watts office for Numbness After hours call Call Disposition Call Ems 911 Now Disposition Comments: Patient/caregiver understands and will follow disposition: Yes Initial Symptom Screening and Assessment IA None Care Advice Neurologic [id number] Luzmaria Santillan CNP Sat Mar 18, 2025 02:15 PM Care Advice CALL EMS 911 NOW: * Immediate medical attention is needed. You need to hang up and call 911 (or an ambulance). * Triager Discretion: I'll call you back in a few minutes to be sure you were able to reach them. CARE ADVICE given per Neurologic Deficit (Adult) guideline. Patient will call back with additional questions or if symptoms change or worsen Luzmaria Santillan CNP Reason for Disposition and Assessment Reason for Disposition [1] Numbness (i.e., loss of sensation) of the face, arm / hand, or leg / foot on one side of the body AND [2] sudden onset AND [3] present now Protocols used: Neurologic [id number] documented in this encounter Plan of Treatment Not on file documented as of this encounter Visit Diagnoses Not on filedocumented in this encounter Additional Health Concerns Assessment Noted Time PHQ-2 Depression Total Score: 1 03/17/20 25 10:40 AM EST documented as of this encounter Care Teams Sanding Machine Tender Automatic Relationship Specialty Start Date End Date Nato Martinez MD [address] [place] [address], [address] [place] [address] PCP - General Internal Medicine 05/13/17 Marion Mattson MD [address] [facility], [address] [place] [address] Historical LMR Provider 02/14/17 Kelvin Acosta MD [address] [place] [address] [email or web address] Historical LMR Provider 02/14/17 Yessica Hernandes MD [address], [place] [address] [email or web address] Obstetrics and Gynecology 09/02/17 Karen Yen MD [address] [place] [address] Medical Oncology 09/02/17 Nato Martinez MD [address] [facility], [address] [place] [address] [email or web address] Insurance Assigned Provider 08/01/23 documented as of this encounter Additional Source Comments The information contained in this document represents components of the legal health record. It is not the complete legal health record.[facility]
--- OUTSIDE RECORDS SUMMARY | 2025-03-18 19:32 | XMS_ITS | Encounter Summary ---
Author Organization [facility] Address [employer] [facility] [employer] [facility] [address] [place] [address] Phone Care Team Providers Care Wind Site Manager Name Role Phone Marion Mattson MD Unavailable [phone] Kelvin Acosta MD Unavailable [phone] Nato Martinez MD Primary Care Provider Yessica Hernandes MD Unavailable Karen Yen MD Unavailable [phone] Nato Martinez MD Unavailable [phone] Reason for Visit * Reason Onset Date Comments Bradycardia 03/18/2025 After Hours Call Numbness 03/18/2025 After Hours Call Encounter Details Date Type Department Care Team (Late st Contact Info) Description 03/18/2025 Nurse Triage [facility] [address] [facility] [address] [facility] [address] [place] [address] Britany Lyons NP 2 [facility] [address] [place] [address] [email or web address] Bradycardia (After Hours Call/); Numbness (After Hours Call/) Social History Tobacco Use Types Packs/Day Years [...] as of this encounter Progress Notes * Britany Lyons, HECTOR - 03/18/2025 5:52 PM EST After Hours Call Note 03/18/2025 5:52 PM Caller: Belén/patient [phone] Chief complaint: BLOOD PRESSURE 99/62 / HEART RATE 47 / NUMBNESS LEFT SIDE OF MOUTH & LEFT HAND/ EN ROUTE TO HOSPITAL. HPI: Pt reports she's been trying to decide which facility to go to-pt lives in [place], has seen acardiologist there, and also has providers at [facility] and [facility] Has decided to go to [facility]. Plan: Support offered. Recommend pt call 911. Educated on risks of not getting to ED [facility]. Pt declines 911. [facility] ED expect completed. Nurse Triage Encounter Note Reason for Triage Jodi Melissa contacted office for Bradycardia After Hours Call Numbness After Hours Call Call Disposition Call Ems 911 Now Disposition Comments: Patient/caregiver understands and will follow disposition: Yes Initial Symptom Screening and Assessment IA None Care Advice Patient/Caregiver understands and will follow care advice?: Yes, with modifications Neurologic [id number] Britany Lyons NP Sat Mar 18, 2025 06:09 PM Care Advice CALL EMS 911 NOW: [...] questions or if symptoms change or worsen Britany Lyons NP Reason for Disposition and Assessment Medications prescribed: None. Disposition: Emergency Room (ER) Reason for Disposition [1] Numbness (i.e., loss of sensation) of the face, arm / hand, or leg / foot on one side of the body AND [2] sudden onset AND [3] present now Protocols used: Neurologic [id number] documented in this encounter Plan of Treatment Not on file documented as of this encounter Visit Diagnoses Not on filedocumented in this encounter Additional Health Concerns Assessment Noted Time PHQ-2 Depression Total Score: 1 03/17/20 25 10:40 AM EST documented as of this encounter Care Teams Wind Site Manager Relationship Specialty Start Date End Date Nato Martinez MD [address] [place] [address], [address] [place] [address] [email or web address] PCP - General Internal Medicine 05/13/17 Marion Mattson MD [address] [place] [address], [address] [place] [address] [email or web address] Historical LMR Provider 02/14/17 Kelvin Acosta MD [address] [place] [address] [email or web address] Historical LMR Provider 02/14/17 Yessica Hernandes MD [address] [place] [address] [email or web address] Obstetrics and Gynecology 09/02/17 Karen Yen MD [address] [place] [address] Medical Oncology 09/02/17 Nato Martinez MD [address] [place] [address], [address] [place] [address] [email or web address] Insurance Assigned Provider 08/01/23 documented as of this encounter Additional Source Comments The information contained in this document represents components of the legal health record. It is not the complete legal health record.[facility]
[2025-03-18 19:38] LABS: Resp Syncy Virus RNA Qual PCR NEGATIVE (Negative); SARS COV2 PCR INHOUSE NEGATIVE (Negative)
--- NOTE | 2025-03-18 20:05 | PC.NURSE ---
pt noted to be A+Ox4, laying semi dotson's in hospital stretcher, extra pillow provided for comfort, call light provided for saftey
[2025-03-18 22:14] LABS: Appearance Urine Clear; Glucose Urine UA Negative (Negative); PH 7.5 (5.0-9.0); Specific Gravity - Urine 1.010 (1.005-1.025)
[2025-03-18 22:15] LABS: UMIC TRIGGER UACC YES
[2025-03-18 22:17] LABS: UACC Culture Trigger YES
[2025-03-18 22:24] VITALS: BP 137/60; PULSE 59; O2SAT 97
[2025-03-18 22:43] VITALS: BP 137/60; PULSE 59; RESP 16; TEMP 36.1; O2SAT 97
== END 2025-03-18 22:48 | disposition home or self-care (01) ==
PROVIDERS: Physician Assistant; Emergency Provider Emergency Medicine; PCP Internal Medicine
DX: R20.2 Paresthesia of skin (principal); G35.D Multiple sclerosis, unspecified; I10 Essential (primary) hypertension; Z72.0 Tobacco use; Z79.899 Other long term (current) drug therapy
CPT/HCPCS: 70450; 80053; 81001; 83690; 83735; 84484; 85025; 87086; 87186; 87637; 93005; 99284

== ENCOUNTER → 2025-03-18 18:39 | Outpatient (BNV) | payer MEDICARE, BC, SELFPAY | PROVIDERS: Emergency Provider Emergency Medicine; PCP Internal Medicine; Visit Provider Radiology Diagnostic Radiology | DX: R20.2 Paresthesia of skin (principal) | CPT/HCPCS: 70450 ==

== ENCOUNTER → 2025-03-18 18:40 | Outpatient (BNV) | payer MEDICARE, BC, SELFPAY | PROVIDERS: Emergency Provider Emergency Medicine; PCP Internal Medicine; Visit Provider Internal Medicine | DX: R00.1 Bradycardia, unspecified (principal) | CPT/HCPCS: 93010 ==